=== PATIENT | male | born 1955 | race Caucasian/White ===

== ENCOUNTER → 2018-06-11 18:58 | Outpatient (REF) | payer OTHER, SELFPAY ==
[2018-06-11 19:33] LABS: Add Manual Diff / Slide Review NO; Basophils Absolute Auto 0 /uL (0-100); Basophils Percent Auto 0.3 % (0-2); Eosinophils Absolute Auto 0 /uL (0-450); Eosinophils Percent Auto 0.4 % (2-4); Hematocrit 42.1 % (41-53); Hemoglobin 13.9 g/dL (13.5-17.5); Lymphocytes Absolute Auto 1000 /uL (1100-4500); Lymphocytes Percent Auto 8.5 % (25-40); Mean Corpuscular HGB Conc 33.1 % (30-36); Mean Corpuscular Hemoglobin 31.5 PG (26-34); Mean Corpuscular Volume 95.2 fL (80-100); Monocytes Absolute Auto 600 /uL (0-900); Monocytes Percent Auto 4.9 % (3-14); Neutrophils Absolute Auto 9900 /uL (1500-7000); Neutrophils Percent Auto 85.9 % (50-75); Platelet Count 264 X10^3/uL (150-400); Red Blood Cell Count 4.42 X10^6/uL (4.5-5.9); White Blood Cell Count 11.5 X10^3/uL (4.5-11.0)
== END ==
LOC: LAB 18:58
PROVIDERS: Family Provider Family Medicine; PCP Family Medicine; Visit Provider Physician Assistant
DX: L03.90 Cellulitis, unspecified (principal)
CPT/HCPCS: 85025

== ENCOUNTER → 2018-06-11 | Outpatient (CLI) | payer OTHER, SELFPAY | PROVIDERS: Family Provider Family Medicine; PCP Family Medicine; Visit Provider Physician Assistant ==

== ENCOUNTER 2018-06-17 19:26 | Inpatient (IN) | payer OTHER, SELFPAY ==
[2018-06-17 19:33] VITALS: BP 126/76; PULSE 92; RESP 20; TEMP 36.6; O2SAT 99; BMI 29.0
--- NOTE | 2018-06-17 20:10 | ED.EXTPRO ---
HPI - Extremity Problem <MAXIMUS Schwartz - Last Filed: 06/18/18 12:27> General Chief complaint: Extremity Problem,Nontraumatic Stated complaint: right leg tenderness and swelling Time Seen by Provider: 06/17/18 20:04 Source: patient Mode of arrival: ambulatory Limitations: no limitations History of Present Illness HPI Narrative: 63-year-old male with a history of hypertension is a former smoker here for complaint of continued redness to his right lower leg. He was seen in the walk-in clinic 6 days ago and was placed on Keflex to treat for cellulitis. He reports that the redness has not improved and has actually increased in size since that timeframe. He denies any trauma to the right lower extremity. Tenderness to mostly the anterior portion of the right lower leg. No fevers no chills. He denies any drainage from the area. He denies any prior history of cellulitis or mrsa. He is ambulatory into the emergency room. He does state that he has been taking the antibiotics as prescribed. No nausea or vomiting. He is tolerating p.o. intake well as MD Complaint: extremity pain Related Data Home Medications Medication Instructions Recorded Confirmed aspirin 81 mg tablet,delayed 81 mg PO DAILY 06/11/18 06/17/18 release losartan 50 mg tablet 50 mg PO DAILY 06/11/18 06/17/18 Previous Rx's Medication Instructions Recorded cephalexin 500 mg capsule 500 mg PO QID 10 Days #40 cap 06/11/18 Allergies Allergy/AdvReac Type Severity Reaction Status Date / Time No Known Drug Allergies Allergy Verified 06/11/18 18:21 Review of Systems <MAXIMUS Schwartz - Last Filed: 06/18/18 12:27> Constitutional Denies chills, Denies fever(s), Denies lethargy and Denies weakness Eyes Denies change in vision, Denies eye discharge, Denies irritation and Denies loss of vision ENT Ears, Nose, Mouth, and Throat: Denies change in voice, Denies neck pain and Denies sore throat Cardiovascular Denies chest pain, Denies irregular heart rhythm, Denies lightheadedness, Denies palpitations, Denies dyspnea, Denies dyspnea on exertion and Denies orthopnea Respiratory Denies cough, Denies dyspnea, Denies dyspnea on exertion and Denies wheezing Gastrointestinal Gastrointestinal: Denies abdominal pain, Denies change in bowel habits, Denies diarrhea, Denies nausea and Denies vomiting Genitourinary Denies hematuria, Denies flank pain, Denies urinary incontinence and Denies urinary urgency Musculoskeletal Denies neck pain Comments: pain and redness to right lower extremity Integumentary/Breasts Denies pruritus, Denies erythema, Denies rash and Denies wounds Neurologic Denies confusion, Denies loss of vision and Denies weakness Psychiatric Denies anxiety, Denies confusion, Denies depression, Denies homicidal ideation and Denies suicidal ideation Endocrine Denies palpitations Hematologic/Lymphatic Denies easy bruising Allergic/Immunologic Denies wheezing PFSH <MAXIMUS Schwartz - Last Filed: 06/18/18 12:27> Medical History Bilateral primary osteoarthritis of knee (Acute) Hypertension (Acute) Social History household members: spouse Smoking Status: Former smoker alcohol intake: current Social History household members: spouse Smoking Status: Former smoker alcohol intake: current Exam <MAXIMUS Schwartz - Last Filed: 06/18/18 12:27> Initial Vital Signs Initial Vital Signs: Vital Signs Temperature 97.9 F 06/17/18 19:33 Pulse Rate 92 H 06/17/18 19:33 Respiratory Rate 20 06/17/18 19:33 Blood Pressure 126/76 06/17/18 19:33 Pulse Oximetry 99 06/17/18 19:33 Const General: cooperative and well developed Nutritional Appearance: well nourished Orientation: alert, awake, oriented x3 and not confused [facility] Mouth: oral mucosae normal and moist mucous membranes Eyes Conjunctivae: conjunctivae normal Sclera: sclerae normal Pupils: PERRL EOM: EOM intact bilaterally Resp Effort & Inspection: normal respiratory effort, able to speak in complete sentences, no respiratory distress and no use of accessory muscles Auscultation: clear to auscultation bilaterally, no rales, no rhonchi and no wheezes Cardio Rate: regular rate Rhythm: regular rhythm Heart Sounds: no click, no gallops, no murmurs and no rubs Pulses: normal peripheral pulses Skin General: no rashes or lesions noted, No jaundice and No petechiae Neuro General: alert, oriented x3, gait normal and no focal motor deficits Speech: speech normal Extrem Other: erythema to right tib-fib area mostly anterior and size. Tenderness on palpation. No induration or fluctuance. No pain into his calf region. Homans sign is negative. Distal sensation is intact. Distal range of motion is intact. Distal pulses are intact. <Anthony Ritter DO - Last Filed: 06/19/18 21:03> Initial Vital Signs Initial Vital Signs: Vital Signs Temperature 97.9 F 06/17/18 19:33 Pulse Rate 92 H 06/17/18 19:33 Respiratory Rate 20 06/17/18 19:33 Blood Pressure 126/76 06/17/18 19:33 Pulse Oximetry 99 06/17/18 19:33 Course <MAXIMUS Schwartz - Last Filed: 06/18/18 12:27> Orders Ordered: Discontinued Medications Acetaminophen (Tylenol) 650 mg PO Q6HR PRN PRN Reason: As Needed for Fever/Mild Pain Aspirin (Aspirin Ec) 81 mg PO DAILY [facility] Last Admin: 06/19/18 09:12 Dose: 81 mg Admin: 06/18/18 08:39 Dose: 81 mg Heparin Sodium (Porcine) (Heparin) 5,000 unit SUBCUT BID [facility] Last Admin: 06/19/18 09:12 Dose: 5,000 unit Admin: 06/18/18 20:59 Dose: 5,000 unit Admin: 06/18/18 08:40 Dose: 5,000 unit Vancomycin HCl 1,250 mg/ (Sodium Chloride) 250 mls @ 250 mls/hr IV NOW ONE Stop: 06/17/18 20:29 Last Infusion: 06/17/18 22:00 Dose: 0 mls/hr Admin: 06/17/18 20:45 Dose: 250 mls/hr Cefazolin Sodium/Dextrose (Ancef) 1 gm in 50 mls @ 100 mls/hr IV Q8H [facility] Stop: 06/20/18 02:29 Last Infusion: 06/19/18 10:11 Dose: 0 mls/hr Admin: 06/19/18 09:08 Dose: 100 mls/hr Infusion: 06/19/18 02:57 Dose: 0 mls/hr Admin: 06/19/18 01:47 Dose: 100 mls/hr Infusion: 06/18/18 20:58 Dose: 0 mls/hr Admin: 06/18/18 17:40 Dose: 100 mls/hr Infusion: 06/18/18 10:42 Dose: 100 mls/hr Admin: 06/18/18 10:12 Dose: 100 mls/hr Sodium Chloride (Normal Saline 0.9%) 250 mls @ 21 mls/hr IV Q24H PRN PRN Reason: Flush Losartan Potassium (Cozaar) 50 mg PO DAILY [facility] Last Admin: 06/19/18 09:11 Dose: 50 mg Admin: 06/18/18 08:39 Dose: 50 mg Sodium Chloride (Normal Saline 0.9% Flush) 10 ml IV BID [facility] Last Admin: 06/19/18 09:08 Dose: 10 ml Admin: 06/18/18 21:00 Dose: 10 ml Sodium Chloride (Normal Saline 0.9% Flush) 10 ml IV PRN PRN PRN Reason: Flush Vital Signs - 8 hr 06/19/18 13:04 06/19/18 16:06 Temperature 97.9 F Pulse Rate 66 Respiratory Rate 17 Blood Pressure 108/67 Pulse Oximetry 97 98 <Anthony Ritter DO - Last Filed: 06/19/18 21:03> Orders Ordered: Discontinued Medications Acetaminophen (Tylenol) 650 mg PO Q6HR PRN PRN Reason: As Needed for Fever/Mild Pain Aspirin (Aspirin Ec) 81 mg PO DAILY [facility] Last Admin: 06/19/18 09:12 Dose: 81 mg Admin: 06/18/18 08:39 Dose: 81 mg Heparin Sodium (Porcine) (Heparin) 5,000 unit SUBCUT BID [facility] Last Admin: 06/19/18 09:12 Dose: 5,000 unit Admin: 06/18/18 20:59 Dose: 5,000 unit Admin: 06/18/18 08:40 Dose: 5,000 unit Vancomycin HCl 1,250 mg/ (Sodium Chloride) 250 mls @ 250 mls/hr IV NOW ONE Stop: 06/17/18 20:29 Last Infusion: 06/17/18 22:00 Dose: 0 mls/hr Admin: 06/17/18 20:45 Dose: 250 mls/hr Cefazolin Sodium/Dextrose (Ancef) 1 gm in 50 mls @ 100 mls/hr IV Q8H [facility] Stop: 06/20/18 02:29 Last Infusion: 06/19/18 10:11 Dose: 0 mls/hr Admin: 06/19/18 09:08 Dose: 100 mls/hr Infusion: 06/19/18 02:57 Dose: 0 mls/hr Admin: 06/19/18 01:47 Dose: 100 mls/hr Infusion: 06/18/18 20:58 Dose: 0 mls/hr Admin: 06/18/18 17:40 Dose: 100 mls/hr Infusion: 06/18/18 10:42 Dose: 100 mls/hr Admin: 06/18/18 10:12 Dose: 100 mls/hr Sodium Chloride (Normal Saline 0.9%) 250 mls @ 21 mls/hr IV Q24H PRN PRN Reason: Flush Losartan Potassium (Cozaar) 50 mg PO DAILY [facility] Last Admin: 06/19/18 09:11 Dose: 50 mg Admin: 06/18/18 08:39 Dose: 50 mg Sodium Chloride (Normal Saline 0.9% Flush) 10 ml IV BID [facility] Last Admin: 06/19/18 09:08 Dose: 10 ml Admin: 06/18/18 21:00 Dose: 10 ml Sodium Chloride (Normal Saline 0.9% Flush) 10 ml IV PRN PRN PRN Reason: Flush Vital Signs - 8 hr 06/19/18 13:04 06/19/18 16:06 Temperature 97.9 F Pulse Rate 66 Respiratory Rate 17 Blood Pressure 108/67 Pulse Oximetry 97 98 MDM - Extremity (Nontraumatic) <MAXIMUS Schwartz - Last Filed: 06/18/18 12:27> Lab Data Result diagrams: 06/19/18 06:04 06/19/18 06:04 Lab Results 06/17/18 06/17/18 06/17/18 Range/Units 19:54 19:54 19:54 WBC 9.6 (4.5-11.0) X10^3/uL RBC 4.08 L (4.5-5.9) X10^6/uL Hgb 12.9 L (13.5-17.5) g/dL Hct 38.2 L (41-53) % MCV 93.7 (80-100) fL MCH 31.6 (26-34) PG MCHC 33.8 (30-36) % RDW 12.5 (11.6-14.8) % Plt Count 524 H (150-400) X10^3/uL Neut % (Auto) 67.7 (50-75) % Lymph % (Auto) 19.9 L (25-40) % [place] % (Auto) 8.0 (3-14) % Eos % (Auto) 3.1 (2-4) % Baso % (Auto) 1.3 (0-2) % Neut # (Auto) 6500 (9501-3238) /uL Lymph # (Auto) 1900 (6895-2052) /uL [place] # (Auto) 800 (0-900) /uL Eos # (Auto) 300 (0-450) /uL Baso # (Auto) 100 (0-100) /uL ESR (0-15) MM/HR Sodium 137 (137-145) mmol/L Potassium 3.5 (3.4-5.1) mmol/L Chloride 100 (98-107) mmol/L Carbon Dioxide 26 (22-32) mmol/L BUN 17 (9-20) mg/dL Creatinine 0.90 (0.66-1.25) mg/dL Estimated GFR > 60.0 (>60) mL/min BUN/Creatinine Ratio 18.9 (6-22) Glucose 118 H (80-110) mg/dL Lactate (0.7-2.1) mmol/L Calcium 9.3 (8.4-10.2) mg/dL Total Bilirubin 0.3 (0.2-1.3) mg/dL AST 47 (17-59) IU/L ALT 68 (21-72) IU/L Alkaline Phosphatase 96 (38-126) U/L C-Reactive Protein (<1.0) mg/dL Total Protein 8.1 (6.3-8.2) g/dL Albumin 4.3 (3.5-5.0) g/dL Globulin 3.8 (1.7-4.1) g/dL Albumin/Globulin Ratio 1.1 (1.0-2.8) Procalcitonin 0.19 (<0.5) ng/mL Nasal Screen MRSA (PCR) (Negative) 06/17/18 06/18/18 06/18/18 Range/Units 20:38 05:48 05:48 WBC 8.2 (4.5-11.0) X10^3/uL RBC 3.91 L (4.5-5.9) X10^6/uL Hgb 12.2 L (13.5-17.5) g/dL Hct 36.4 L (41-53) % MCV 93.2 (80-100) fL MCH 31.2 (26-34) PG MCHC 33.5 (30-36) % RDW 12.5 (11.6-14.8) % Plt Count 494 H (150-400) X10^3/uL Neut % (Auto) 70.2 (50-75) % Lymph % (Auto) 15.3 L (25-40) % [place] % (Auto) 10.4 (3-14) % Eos % (Auto) 3.1 (2-4) % Baso % (Auto) 1.0 (0-2) % Neut # (Auto) 5800 (1228-8290) /uL Lymph # (Auto) 1300 (4586-8235) /uL [place] # (Auto) 900 (0-900) /uL Eos # (Auto) 300 (0-450) /uL Baso # (Auto) 100 (0-100) /uL ESR 57 H (0-15) MM/HR Sodium 139 (137-145) mmol/L Potassium 4.1 (3.4-5.1) mmol/L Chloride 105 (98-107) mmol/L Carbon Dioxide 27 (22-32) mmol/L BUN 16 (9-20) mg/dL Creatinine 0.90 (0.66-1.25) mg/dL Estimated GFR > 60.0 (>60) mL/min BUN/Creatinine Ratio 17.8 (6-22) Glucose 100 (80-110) mg/dL Lactate 1.1 (0.7-2.1) mmol/L Calcium 8.6 (8.4-10.2) mg/dL Total Bilirubin (0.2-1.3) mg/dL AST (17-59) IU/L ALT (21-72) IU/L Alkaline Phosphatase (38-126) U/L C-Reactive Protein 2.8 H (<1.0) mg/dL Total Protein (6.3-8.2) g/dL Albumin (3.5-5.0) g/dL Globulin (1.7-4.1) g/dL Albumin/Globulin Ratio (1.0-2.8) Procalcitonin (<0.5) ng/mL Nasal Screen MRSA (PCR) (Negative) 06/18/18 06/19/18 06/19/18 Range/Units 14:13 06:04 06:04 WBC 7.8 (4.5-11.0) X10^3/uL RBC 3.98 L (4.5-5.9) X10^6/uL Hgb 12.5 L (13.5-17.5) g/dL Hct 37.2 L (41-53) % MCV 93.5 (80-100) fL MCH 31.4 (26-34) PG MCHC 33.6 (30-36) % RDW 12.9 (11.6-14.8) % Plt Count 546 H (150-400) X10^3/uL Neut % (Auto) 65.8 (50-75) % Lymph % (Auto) 20.6 L (25-40) % [place] % (Auto) 9.7 (3-14) % Eos % (Auto) 2.5 (2-4) % Baso % (Auto) 1.4 (0-2) % Neut # (Auto) 5100 (1257-1029) /uL Lymph # (Auto) 1600 (7027-2524) /uL [place] # (Auto) 800 (0-900) /uL Eos # (Auto) 200 (0-450) /uL Baso # (Auto) 100 (0-100) /uL ESR (0-15) MM/HR Sodium (137-145) mmol/L Potassium (3.4-5.1) mmol/L Chloride (98-107) mmol/L Carbon Dioxide (22-32) mmol/L BUN (9-20) mg/dL Creatinine (0.66-1.25) mg/dL Estimated GFR (>60) mL/min BUN/Creatinine Ratio (6-22) Glucose (80-110) mg/dL Lactate (0.7-2.1) mmol/L Calcium (8.4-10.2) mg/dL Total Bilirubin (0.2-1.3) mg/dL AST (17-59) IU/L ALT (21-72) IU/L Alkaline Phosphatase (38-126) U/L C-Reactive Protein (<1.0) mg/dL Total Protein (6.3-8.2) g/dL Albumin (3.5-5.0) g/dL Globulin (1.7-4.1) g/dL Albumin/Globulin Ratio (1.0-2.8) Procalcitonin 0.07 (<0.5) ng/mL Nasal Screen MRSA (PCR) Negative for mrsa (Negative) 06/19/18 Range/Units 06:04 WBC (4.5-11.0) X10^3/uL RBC (4.5-5.9) X10^6/uL Hgb (13.5-17.5) g/dL Hct (41-53) % MCV (80-100) fL MCH (26-34) PG MCHC (30-36) % RDW (11.6-14.8) % Plt Count (150-400) X10^3/uL Neut % (Auto) (50-75) % Lymph % (Auto) (25-40) % [place] % (Auto) (3-14) % Eos % (Auto) (2-4) % Baso % (Auto) (0-2) % Neut # (Auto) (9686-7258) /uL Lymph # (Auto) (3699-1239) /uL [place] # (Auto) (0-900) /uL Eos # (Auto) (0-450) /uL Baso # (Auto) (0-100) /uL ESR (0-15) MM/HR Sodium 139 (137-145) mmol/L Potassium 4.1 (3.4-5.1) mmol/L Chloride 104 (98-107) mmol/L Carbon Dioxide 26 (22-32) mmol/L BUN 14 (9-20) mg/dL Creatinine 0.90 (0.66-1.25) mg/dL Estimated GFR > 60.0 (>60) mL/min BUN/Creatinine Ratio 15.6 (6-22) Glucose 100 (80-110) mg/dL Lactate (0.7-2.1) mmol/L Calcium 9.1 (8.4-10.2) mg/dL Total Bilirubin (0.2-1.3) mg/dL AST (17-59) IU/L ALT (21-72) IU/L Alkaline Phosphatase (38-126) U/L C-Reactive Protein (<1.0) mg/dL Total Protein (6.3-8.2) g/dL Albumin (3.5-5.0) g/dL Globulin (1.7-4.1) g/dL Albumin/Globulin Ratio (1.0-2.8) Procalcitonin (<0.5) ng/mL Nasal Screen MRSA (PCR) (Negative) Imaging Data Venous US: Radiologist's impression: [address] [address] Ultrasound Report Signed Patient: Reji Aden AMR#: [id number] : 7Acct:[id number] Age/Sex: 63 / MDate of Service: 06/17/18 Loc: NV746-2 Accession Number: [id number] Procedure: US periph venous low extrem rt Ordering Provider: Brando Freitas PROCEDURE: US PERIPH VENOUS LOW EXTREM RT INDICATIONS: ERYTHEMA, EDEMA TECHNIQUE: Real-time imaging, as well as color and pulse Doppler interrogation, were performed of the lower extremity deep veins from the inguinal ligament to the popliteal fossa. COMPARISON: None. FINDINGS: The deep veins are normally compressible, and free of intraluminal thrombus. Color and pulse Doppler demonstrate normal phasic intraluminal flow. There is normal augmentation response to distal compression maneuver. There is a Ashley cyst measuring 4.4 x 1.4 x 4.3 cm in the popliteal fossa. IMPRESSION: 1. No deep venous thrombosis in the lower extremities. 2. A Ashley's cyst. 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 Dictated by: Kristina Perry M.D. on 06/18/2018 at 8:17 Approved by: Kristina Perry M.D. on 06/18/2018 at 8:19 MDM Narrative Medical decision making narrative: CBC and Chem panel were obtained were unremarkable. Procalcitonin lactate were obtained were unremarkable. Ultrasound of the right lower extremity was obtained was negative for any blood clot. Signs and symptoms presents as cellulitis not responding well to p.o. antibiotics. he was started on vancomycin in the emergency room. He is admitted at inpatient del cid for continued IV antibiotics. discussed case with MAXIMUS Borrego the has accepted patient. <Anthony Ritter DO - Last Filed: 06/19/18 21:03> Lab Data Lab Results 06/17/18 06/17/18 06/17/18 Range/Units 19:54 19:54 19:54 WBC 9.6 (4.5-11.0) X10^3/uL RBC 4.08 L (4.5-5.9) X10^6/uL Hgb 12.9 L (13.5-17.5) g/dL Hct 38.2 L (41-53) % MCV 93.7 (80-100) fL MCH 31.6 (26-34) PG MCHC 33.8 (30-36) % RDW 12.5 (11.6-14.8) % Plt Count 524 H (150-400) X10^3/uL Neut % (Auto) 67.7 (50-75) % Lymph % (Auto) 19.9 L (25-40) % [place] % (Auto) 8.0 (3-14) % Eos % (Auto) 3.1 (2-4) % Baso % (Auto) 1.3 (0-2) % Neut # (Auto) 6500 (8426-8456) /uL Lymph # (Auto) 1900 (6051-3784) /uL [place] # (Auto) 800 (0-900) /uL Eos # (Auto) 300 (0-450) /uL Baso # (Auto) 100 (0-100) /uL ESR (0-15) MM/HR Sodium 137 (137-145) mmol/L Potassium 3.5 (3.4-5.1) mmol/L Chloride 100 (98-107) mmol/L Carbon Dioxide 26 (22-32) mmol/L BUN 17 (9-20) mg/dL Creatinine 0.90 (0.66-1.25) mg/dL Estimated GFR > 60.0 (>60) mL/min BUN/Creatinine Ratio 18.9 (6-22) Glucose 118 H (80-110) mg/dL Lactate (0.7-2.1) mmol/L Calcium 9.3 (8.4-10.2) mg/dL Total Bilirubin 0.3 (0.2-1.3) mg/dL AST 47 (17-59) IU/L ALT 68 (21-72) IU/L Alkaline Phosphatase 96 (38-126) U/L C-Reactive Protein (<1.0) mg/dL Total Protein 8.1 (6.3-8.2) g/dL Albumin 4.3 (3.5-5.0) g/dL Globulin 3.8 (1.7-4.1) g/dL Albumin/Globulin Ratio 1.1 (1.0-2.8) Procalcitonin 0.19 (<0.5) ng/mL Nasal Screen MRSA (PCR) (Negative) 06/17/18 06/18/18 06/18/18 Range/Units 20:38 05:48 05:48 WBC 8.2 (4.5-11.0) X10^3/uL RBC 3.91 L (4.5-5.9) X10^6/uL Hgb 12.2 L (13.5-17.5) g/dL Hct 36.4 L (41-53) % MCV 93.2 (80-100) fL MCH 31.2 (26-34) PG MCHC 33.5 (30-36) % RDW 12.5 (11.6-14.8) % Plt Count 494 H (150-400) X10^3/uL Neut % (Auto) 70.2 (50-75) % Lymph % (Auto) 15.3 L (25-40) % [place] % (Auto) 10.4 (3-14) % Eos % (Auto) 3.1 (2-4) % Baso % (Auto) 1.0 (0-2) % Neut # (Auto) 5800 (6233-9305) /uL Lymph # (Auto) 1300 (1830-9874) /uL [place] # (Auto) 900 (0-900) /uL Eos # (Auto) 300 (0-450) /uL Baso # (Auto) 100 (0-100) /uL ESR 57 H (0-15) MM/HR Sodium 139 (137-145) mmol/L Potassium 4.1 (3.4-5.1) mmol/L Chloride 105 (98-107) mmol/L Carbon Dioxide 27 (22-32) mmol/L BUN 16 (9-20) mg/dL Creatinine 0.90 (0.66-1.25) mg/dL Estimated GFR > 60.0 (>60) mL/min BUN/Creatinine Ratio 17.8 (6-22) Glucose 100 (80-110) mg/dL Lactate 1.1 (0.7-2.1) mmol/L Calcium 8.6 (8.4-10.2) mg/dL Total Bilirubin (0.2-1.3) mg/dL AST (17-59) IU/L ALT (21-72) IU/L Alkaline Phosphatase (38-126) U/L C-Reactive Protein 2.8 H (<1.0) mg/dL Total Protein (6.3-8.2) g/dL Albumin (3.5-5.0) g/dL Globulin (1.7-4.1) g/dL Albumin/Globulin Ratio (1.0-2.8) Procalcitonin (<0.5) ng/mL Nasal Screen MRSA (PCR) (Negative) 06/18/18 06/19/18 06/19/18 Range/Units 14:13 06:04 06:04 WBC 7.8 (4.5-11.0) X10^3/uL RBC 3.98 L (4.5-5.9) X10^6/uL Hgb 12.5 L (13.5-17.5) g/dL Hct 37.2 L (41-53) % MCV 93.5 (80-100) fL MCH 31.4 (26-34) PG MCHC 33.6 (30-36) % RDW 12.9 (11.6-14.8) % Plt Count 546 H (150-400) X10^3/uL Neut % (Auto) 65.8 (50-75) % Lymph % (Auto) 20.6 L (25-40) % [place] % (Auto) 9.7 (3-14) % Eos % (Auto) 2.5 (2-4) % Baso % (Auto) 1.4 (0-2) % Neut # (Auto) 5100 (6572-0362) /uL Lymph # (Auto) 1600 (6085-4576) /uL [place] # (Auto) 800 (0-900) /uL Eos # (Auto) 200 (0-450) /uL Baso # (Auto) 100 (0-100) /uL ESR (0-15) MM/HR Sodium (137-145) mmol/L Potassium (3.4-5.1) mmol/L Chloride (98-107) mmol/L Carbon Dioxide (22-32) mmol/L BUN (9-20) mg/dL Creatinine (0.66-1.25) mg/dL Estimated GFR (>60) mL/min BUN/Creatinine Ratio (6-22) Glucose (80-110) mg/dL Lactate (0.7-2.1) mmol/L Calcium (8.4-10.2) mg/dL Total Bilirubin (0.2-1.3) mg/dL AST (17-59) IU/L ALT (21-72) IU/L Alkaline Phosphatase (38-126) U/L C-Reactive Protein (<1.0) mg/dL Total Protein (6.3-8.2) g/dL Albumin (3.5-5.0) g/dL Globulin (1.7-4.1) g/dL Albumin/Globulin Ratio (1.0-2.8) Procalcitonin 0.07 (<0.5) ng/mL Nasal Screen MRSA (PCR) Negative for mrsa (Negative) 06/19/18 Range/Units 06:04 WBC (4.5-11.0) X10^3/uL RBC (4.5-5.9) X10^6/uL Hgb (13.5-17.5) g/dL Hct (41-53) % MCV (80-100) fL MCH (26-34) PG MCHC (30-36) % RDW (11.6-14.8) % Plt Count (150-400) X10^3/uL Neut % (Auto) (50-75) % Lymph % (Auto) (25-40) % [place] % (Auto) (3-14) % Eos % (Auto) (2-4) % Baso % (Auto) (0-2) % Neut # (Auto) (2836-9648) /uL Lymph # (Auto) (2444-5005) /uL [place] # (Auto) (0-900) /uL Eos # (Auto) (0-450) /uL Baso # (Auto) (0-100) /uL ESR (0-15) MM/HR Sodium 139 (137-145) mmol/L Potassium 4.1 (3.4-5.1) mmol/L Chloride 104 (98-107) mmol/L Carbon Dioxide 26 (22-32) mmol/L BUN 14 (9-20) mg/dL Creatinine 0.90 (0.66-1.25) mg/dL Estimated GFR > 60.0 (>60) mL/min BUN/Creatinine Ratio 15.6 (6-22) Glucose 100 (80-110) mg/dL Lactate (0.7-2.1) mmol/L Calcium 9.1 (8.4-10.2) mg/dL Total Bilirubin (0.2-1.3) mg/dL AST (17-59) IU/L ALT (21-72) IU/L Alkaline Phosphatase (38-126) U/L C-Reactive Protein (<1.0) mg/dL Total Protein (6.3-8.2) g/dL Albumin (3.5-5.0) g/dL Globulin (1.7-4.1) g/dL Albumin/Globulin Ratio (1.0-2.8) Procalcitonin (<0.5) ng/mL Nasal Screen MRSA (PCR) (Negative) Discharge Plan Departure Patient Disposition: Admitted As Inpatient Clinical Impression: Cellulitis Qualifiers: Site of cellulitis: extremity Site of cellulitis of extremity: lower extremity Laterality: right Qualified Code(s): L03.115 - Cellulitis of right lower limb Discharge Date/Time: 06/17/18 22:24 Interventions: ED Discharge Assessment Last Done: 06/17/18 22:24 Admit Date/Time: 06/17/18 22:19 Admit Provider: Hilario Benoit <Anthony Ritter DO - Last Filed: 06/19/18 21:03> Cosign ED Attending Arnoldo Attestation: I was immediately available in the department for consultation. Documentation has been reviewed. I agree with assessment and plan.
--- NOTE | 2018-06-17 20:19 | DI.US.S_ITS ---
PROCEDURE: US PERIPH VENOUS LOW EXTREM RT INDICATIONS: ERYTHEMA, EDEMA TECHNIQUE: Real-time imaging, as well as color and pulse Doppler interrogation, were performed of the lower extremity deep veins from the inguinal ligament to the popliteal fossa. COMPARISON: None. FINDINGS: The deep veins are normally compressible, and free of intraluminal thrombus. Color and pulse Doppler demonstrate normal phasic intraluminal flow. There is normal augmentation response to distal compression maneuver. There is a Ashley cyst measuring 4.4 x 1.4 x 4.3 cm in the popliteal fossa. IMPRESSION: 1. No deep venous thrombosis in the lower extremities. 2. A Ashley's cyst. No significant discrepancy with the cage shift manager radiology preliminary report. Dictated by: Kristina Perry M.D. on 06/18/2018 at 8:17 Approved by: Kristina Perry M.D. on 06/18/2018 at 8:19
[2018-06-17 20:34] LABS: Add Manual Diff / Slide Review NO; Basophils Absolute Auto 100 /uL (0-100); Basophils Percent Auto 1.3 % (0-2); Eosinophils Absolute Auto 300 /uL (0-450); Eosinophils Percent Auto 3.1 % (2-4); Hematocrit 38.2 % (41-53); Hemoglobin 12.9 g/dL (13.5-17.5); Lymphocytes Absolute Auto 1900 /uL (1100-4500); Lymphocytes Percent Auto 19.9 % (25-40); Mean Corpuscular HGB Conc 33.8 % (30-36); Mean Corpuscular Hemoglobin 31.6 PG (26-34); Mean Corpuscular Volume 93.7 fL (80-100); Monocytes Absolute Auto 800 /uL (0-900); Neutrophils Absolute Auto 6500 /uL (1500-7000); Neutrophils Percent Auto 67.7 % (50-75); Platelet Count 524 X10^3/uL (150-400); Red Blood Cell Count 4.08 X10^6/uL (4.5-5.9); Red Cell Distribution Width 12.5 % (11.6-14.8); White Blood Cell Count 9.6 X10^3/uL (4.5-11.0)
[2018-06-17] MEDS: VANCOMYCIN 1,250 MG in SODIUM CHLORIDE 0.9% 250 ML IV (20:45)
[2018-06-17 20:47] LABS: Alanine Aminotransferase 68 IU/L (21-72); Albumin 4.3 g/dL (3.5-5.0); Albumin Globulin Ratio 1.1 (1.0-2.8); Alkaline Phosphatase 96 U/L (38-126); Aspartate Aminotransferase 47 IU/L (17-59); BUN Creatinine Ratio 18.9 (6-22); Bilirubin Total 0.3 mg/dL (0.2-1.3); Blood Urea Nitrogen 17 mg/dL (9-20); Calcium 9.3 mg/dL (8.4-10.2); Carbon Dioxide 26 mmol/L (22-32); Chloride 100 mmol/L (98-107); Estimated Glomerular Filt Rate > 60.0 mL/min (>60); Globulin 3.8 g/dL (1.7-4.1); Glucose 118 mg/dL (80-110); HEMOLYSIS < 15 (0-50); Potassium 3.5 mmol/L (3.4-5.1); Sodium 137 mmol/L (137-145); Total Protein 8.1 g/dL (6.3-8.2)
[2018-06-17 21:02] LABS: Procalcitonin 0.19 ng/mL (<0.5)
[2018-06-17 21:04] LABS: Lactate (Lactic Acid) 1.1 mmol/L (0.7-2.1)
[2018-06-17 22:04] VITALS: BP 116/69; PULSE 70; RESP 18; O2SAT 99
[2018-06-17 22:32] VITALS: BMI 29.7
[2018-06-17 23:03] VITALS: BP 141/82; PULSE 76; RESP 18; TEMP 36.6; O2SAT 98
--- NOTE | 2018-06-17 23:10 | PC.NURSE ---
Pt admitted to acute care from er, transferred via wheelchair, ambulated to bed. A/O. Reports 2-3/10 aching pain in right calf. Reports pain as tolerable and denies need for meds. Elevated right leg/foot. Redness within marked borders on calf, right ankle also slightly red, 2+ pitting edema. Pedal pulse marked, unable to palpate, doppler used. Left foot cool/dusky, cap refill <3 seconds. Reports sometimes hands also get dusky and a couple fingers turn white. Runs warm water over them to resolve the issue. Oriented to room/call light. Denies further questions. Spouse went home for the night.
[2018-06-18] VITALS (8 sets, daily range): BP systolic 114–136; BP diastolic 61–97; PULSE 70–77; RESP 16–20; TEMP 36.2–36.8; O2SAT 97–99
--- NOTE | 2018-06-18 02:02 | PC.NURSE ---
Drug Department Worker Note: 0030: Awake, resting in bed. Vital signs stable. IV in place in lt AC. No complaint of pain or discomfort.
--- NOTE | 2018-06-18 02:20 | P.HP_ITS ---
History of Present Illness Date Patient Seen: 06/18/18 Time Patient Seen: 05:50 Chief complaint: right leg tenderness and swelling Narrative: The patient is a 63-year-old male with PMH of hypertension, onychomycosis, steoarthritis (knees) history of shingles, and PRIOR tobacco dep endence. Patient reports developing a fever 102.7 with upper respiratory symptoms of cough with phlegm production. Associated symptoms of generalized malaise. Denies myopathy, joint, or bone pain. Symptoms improved with supportive care and ibuprofen. On Friday evening and noted right lower extremity swelling and discomfort in the calf area with worsening edema and erythema. On pat ieandreina noticed blotchy, blister-like lesions w/ mild purulence, which has now resolved. He was seen in the outpatient walk-in clinic, diagnosed with cellulitis, and started on a ten-day course of Keflex 500 mg q.i.d. patient has completed 6 days of antimicrobial therapy, there has not been any improvement in edema or erythema. Denies itching. No induration. No prior history of cellulitis. No prior history of MRSA /MRSA colonization. No history of diabetes, peripheral vascular disease, or autoimmune illness / immunocompromised state. WBC 9.6, HGB 12.9, PLT 524, PCT 0.19, lactate 1.1 No electrolyte or renal abnormalities. Right lower extremity vascular ultrasound was done on 06/17 in the outpatient clinic and patient was told there was no DVT, final results are pending, will need to follow up. Blood cultures were drawn in the ED and pending. Three weeks ago patient was doing some house work and had to go into some type of crawl space. Also has been working on remodeling in all house. No known bites. Possibly has had a small injury to the right calf area; however, his entirely sure. Patient fever. No hypotension or tachycardia. Erythema progressively worsening over course of 2 days. Not improving in the setting of oral antimicrobial therapy with Keflex. Non purulent. No prior history of MRSA or MSSA. No known history of recurrent infections. Risk factors obesity. Fissuring of interdigital toe spaces. Tinea pedis. Patient History Medical History Bilateral primary osteoarthritis of knee (Acute) Hypertension (Acute) Social History household members: spouse Smoking Status: Former smoker alcohol intake: current Family & Social History Social History: household members spouse Prior Living Arrangements House Safety & Behavioral: Feels Safe in Current Yes Environment Been Physically Hurt or No Threatened By a Person Suicidal Ideation Description None Tobacco & Substance use: Smoking Status Former smoker alcohol intake current alcohol intake frequency 0-2 drinks per day Substance Use Type does not use Meds Home Medications Medication Instructions Recorded Confirmed Type aspirin 81 mg tablet,delayed 81 mg PO DAILY 06/11/18 06/17/18 History release cephalexin 500 mg capsule 500 mg PO QID 10 Days #40 cap 06/11/18 06/17/18 Rx losartan 50 mg tablet 50 mg PO DAILY 06/11/18 06/17/18 History Allergies Allergy/AdvReac Type Severity Reaction Status Date / Time No Known Drug Allergies Allergy Verified 06/11/18 18:21 Review of Systems Review of Systems All systems reviewed & are unremarkable except as noted in HPI and below Exam Vital Signs (past 8 hours): - 06/17/18 19:33 06/17/18 22:04 06/17/18 23:03 Temperature 97.9 F 98 F Pulse Rate 92 H 70 76 Respiratory Rate 20 18 18 Blood Pressure 126/76 141/82 H Blood Pressure [Right Arm] 116/69 Pulse Oximetry 99 99 98 Oxygen Delivery Method Room Air Narrative Exam Narrative: Constitutional: NAD Neurologic: AOx3, no focal neurological deficits Head: NC, AT Eyes: PERRL, EOMI, Ears: external ears normal, no otorrhea Nose: external nose normal, no rhinorrhea or epistaxis Throat: MMM, oropharynx w/o exudate Neck: no masses, lymphadenopathy, or JVD Chest / Respiratory: CTAB, unlabored respiratory effort Heart / CV: S1S2, no murmur Abdomen / GI: round, NT, ND, + BS, no organomegaly : no suprapubic tenderness, no CVA Peripheral / Vascular: Right lower extremity with edema 3 to 4+; no induration; warm to touch; erythema, dermatitis appearance; sensation intact No purpura or ecchymotic rash. Pedal pulse palpable. Left lower extremity within normal limits. Tenia pedis of bilateral toenails Musc: full ROM of upper and lower extremities, adequate muscle tone and bulk Skin: See peripheral vascular assessment Objective Labs Result Diagrams: 06/18/18 05:48 06/18/18 05:48 Labs: Laboratory Results - last 24 hr 06/17/18 06/17/18 06/17/18 19:54 19:54 19:54 WBC 9.6 RBC 4.08 L Hgb 12.9 L Hct 38.2 L MCV 93.7 MCH 31.6 MCHC 33.8 RDW 12.5 Plt Count 524 H Neut % (Auto) 67.7 Lymph % (Auto) 19.9 L Clinton % (Auto) 8.0 Eos % (Auto) 3.1 Baso % (Auto) 1.3 Neut # (Auto) 6500 Lymph # (Auto) 1900 [place] # (Auto) 800 Eos # (Auto) 300 Baso # (Auto) 100 Sodium 137 Potassium 3.5 Chloride 100 Carbon Dioxide 26 BUN 17 Creatinine 0.90 Estimated GFR > 60.0 BUN/Creatinine Ratio 18.9 Glucose 118 H Lactate Calcium 9.3 Total Bilirubin 0.3 AST 47 ALT 68 Alkaline Phosphatase 96 Total Protein 8.1 Albumin 4.3 Globulin 3.8 Albumin/Globulin Ratio 1.1 Procalcitonin 0.19 06/17/18 20:38 WBC RBC Hgb Hct MCV MCH MCHC RDW Plt Count Neut % (Auto) Lymph % (Auto) [place] % (Auto) Eos % (Auto) Baso % (Auto) Neut # (Auto) Lymph # (Auto) [place] # (Auto) Eos # (Auto) Baso # (Auto) Sodium Potassium Chloride Carbon Dioxide BUN Creatinine Estimated GFR BUN/Creatinine Ratio Glucose Lactate 1.1 Calcium Total Bilirubin AST ALT Alkaline Phosphatase Total Protein Albumin Globulin Albumin/Globulin Ratio Procalcitonin Assessment & Plan Assessment & Plan narrative: Right lower extremity cellulitis without involvement of the foot, acute, present on admission Refractory to outpatient Keflex therapy Ddx: Fungal dermatitis, atopic dermatitis, eczema, viral infection Vital signs stable. Does not meet SIRS or sepsis criteria. Given a dose of vancomycin in the ED - blood cultures pending - a.m. labs CBC, BMP, sed rate, CRP - pain management with analgesics as needed - supportive care, elevate/rest affected extremity; wounds/?compress as tolerated or needed negative C 20 min every hour - Neurovascular checks q.4 hours; outline margins of the cellulitis with skin marker to monitor for inflammatory spread - wound care consult - given vancomycin in the ED, obtain MRSA swab, will change empiric therapy to Ancef. 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 is the DPOA. Home medications verified and reviewed. Plan of care discussed with patient's nurse. Quality VTE Deep Vein Thrombosis/Pulmonary Embolism Present on Admission: No
[2018-06-18 06:06] LABS: Add Manual Diff / Slide Review NO; Basophils Absolute Auto 100 /uL (0-100); Eosinophils Absolute Auto 300 /uL (0-450); Eosinophils Percent Auto 3.1 % (2-4); Hematocrit 36.4 % (41-53); Hemoglobin 12.2 g/dL (13.5-17.5); Lymphocytes Absolute Auto 1300 /uL (1100-4500); Lymphocytes Percent Auto 15.3 % (25-40); Mean Corpuscular HGB Conc 33.5 % (30-36); Mean Corpuscular Hemoglobin 31.2 PG (26-34); Mean Corpuscular Volume 93.2 fL (80-100); Monocytes Absolute Auto 900 /uL (0-900); Monocytes Percent Auto 10.4 % (3-14); Neutrophils Absolute Auto 5800 /uL (1500-7000); Neutrophils Percent Auto 70.2 % (50-75); Platelet Count 494 X10^3/uL (150-400); Red Blood Cell Count 3.91 X10^6/uL (4.5-5.9); Red Cell Distribution Width 12.5 % (11.6-14.8); White Blood Cell Count 8.2 X10^3/uL (4.5-11.0)
[2018-06-18 06:15] LABS: BUN Creatinine Ratio 17.8 (6-22); Blood Urea Nitrogen 16 mg/dL (9-20); Calcium 8.6 mg/dL (8.4-10.2); Carbon Dioxide 27 mmol/L (22-32); Chloride 105 mmol/L (98-107); Estimated Glomerular Filt Rate > 60.0 mL/min (>60); Glucose 100 mg/dL (80-110); HEMOLYSIS < 15 (0-50); Potassium 4.1 mmol/L (3.4-5.1); Sodium 139 mmol/L (137-145)
[2018-06-18 06:37] LABS: Erythrocyte Sedimentation Rate 57 MM/HR (0-15)
[2018-06-18 07:09] LABS: C-Reactive Protein Quant 2.8 mg/dL (<1.0)
[2018-06-18] MEDS: LOSARTAN 50 MG TABLET PO (08:39)
[2018-06-18] MEDS: ASPIRIN EC 81 MG TABLET PO (08:39)
[2018-06-18] MEDS: HEPARIN 5,000 UNIT/ML VIAL 5000 UNIT SUBCUT ×2 (08:40→20:59)
[2018-06-18] MEDS: CEFAZOLIN 1 GM/50 ML FROZ.PIGGY IV ×2 (10:12→17:40)
--- NOTE | 2018-06-18 18:13 | PC.NURSE ---
Pt awake and alert lying quietly in bed with RLE elevated on pillows x 2. Pt reports pain 2/10 and declines need for analgesia. Able to move all extremities independently. Admits to sensation to R foot not equal to left, but pedal pulses are palpable x 2 and warmth and color are equal BL. Denies nausea.
[2018-06-18] MEDS: SODIUM CHLORIDE 0.9% FLUSH 10 ML IV (21:00)
[2018-06-19] VITALS (9 sets, daily range): BP systolic 108–134; BP diastolic 67–86; PULSE 65–78; RESP 13–17; TEMP 36.3–36.6; O2SAT 97–99
[2018-06-19] MEDS: CEFAZOLIN 1 GM/50 ML FROZ.PIGGY IV ×2 (01:47→09:08)
[2018-06-19 06:23] LABS: Add Manual Diff / Slide Review NO; Basophils Absolute Auto 100 /uL (0-100); Basophils Percent Auto 1.4 % (0-2); Eosinophils Absolute Auto 200 /uL (0-450); Eosinophils Percent Auto 2.5 % (2-4); Hematocrit 37.2 % (41-53); Hemoglobin 12.5 g/dL (13.5-17.5); Lymphocytes Absolute Auto 1600 /uL (1100-4500); Lymphocytes Percent Auto 20.6 % (25-40); Mean Corpuscular HGB Conc 33.6 % (30-36); Mean Corpuscular Hemoglobin 31.4 PG (26-34); Mean Corpuscular Volume 93.5 fL (80-100); Monocytes Absolute Auto 800 /uL (0-900); Monocytes Percent Auto 9.7 % (3-14); Neutrophils Absolute Auto 5100 /uL (1500-7000); Neutrophils Percent Auto 65.8 % (50-75); Platelet Count 546 X10^3/uL (150-400); Red Blood Cell Count 3.98 X10^6/uL (4.5-5.9); Red Cell Distribution Width 12.9 % (11.6-14.8); White Blood Cell Count 7.8 X10^3/uL (4.5-11.0)
[2018-06-19 06:34] LABS: BUN Creatinine Ratio 15.6 (6-22); Blood Urea Nitrogen 14 mg/dL (9-20); Calcium 9.1 mg/dL (8.4-10.2); Carbon Dioxide 26 mmol/L (22-32); Chloride 104 mmol/L (98-107); Estimated Glomerular Filt Rate > 60.0 mL/min (>60); Glucose 100 mg/dL (80-110); HEMOLYSIS < 15 (0-50); Potassium 4.1 mmol/L (3.4-5.1); Sodium 139 mmol/L (137-145)
[2018-06-19 06:51] LABS: Procalcitonin 0.07 ng/mL (<0.5)
[2018-06-19] MEDS: SODIUM CHLORIDE 0.9% FLUSH 10 ML IV (09:08)
[2018-06-19] MEDS: LOSARTAN 50 MG TABLET PO (09:11)
[2018-06-19] MEDS: ASPIRIN EC 81 MG TABLET PO (09:12)
[2018-06-19] MEDS: HEPARIN 5,000 UNIT/ML VIAL 5000 UNIT SUBCUT (09:12)
--- NOTE | 2018-06-19 09:50 | CM.IDA ---
Discharge Planning/Care Management Advanced directive, confirm from FAMILY Start: 06/17/18 22:48 Freq: Q24H Status: Complete Protocol: Document 06/18/18 01:00 RAC (Rec: 06/18/18 01:58 RAC [id number]) Advance Directive, confirm on record Time 01:00 Person contacted pt Copy received No Copy received No Advanced directive available on record No Document 06/18/18 01:58 RAC (Rec: 06/18/18 01:58 RAC [id number]) Advance Directive, confirm on record Time 01:00 Person contacted pt Copy received No Copy received No Advanced directive available on record No CM Discharge Assessment Start: 06/19/18 09:39 Freq: Status: Active Protocol: Document 06/19/18 09:39 KATINA (Rec: 06/19/18 09:45 JW [id number]) Discharge Planning Assessment Assigned Electrical Tester BETHANY Mcallister DPOA/Assigned Designee Name Rama Aden, spouse Contact Information [phone] Advance Directives? No History Provided By Patient Medical Record Prior Living Arrangements House Household Members spouse Type of transporation used prior to Drives own vehicle admit Independent with ADL's Yes Is patient alert and oriented? Yes Barriers to Discharge No Comment Pt admitted for rt lower extremity cellulitis. Payer: [employer]. Reviewed chart. Pt indp at baseline, lives w/spouse. Dr Cross indicated in multi- disciplinary rounds this morning that pt will likely DC home today or tomorrow on po abx. No SW needs anticipated. Following in case any DC needs or concerns arise. BETHANY Wilkerson Discharge Plan Home Transportation Arrangement Family Referrals Initiated None needed Review Status In Process
--- NOTE | 2018-06-19 12:17 | PC.NURSE ---
Day Shift- Pt reports 2/10 aching to RLE after wound dressing change this AM by Dr. Paris. Wound culture swab from RLE taken by Dr. Paris, order placed and swab sent to lab. RLE has 2 allevyn foam border dressings present, marked with todays date. Redness receding from previous marked line. Skin is wrinkled, pt reports edema has diminished since yesterday. RLE elevated on several pillows, educated pt to try to keep above heart level as much as possible. OOB indep with steady gait, pt ambulated in halls indep as well. No other voiced concerns.
--- NOTE | 2018-06-19 16:45 | PC.NURSE ---
Wound Consult with Wound Nurse and is in bed with his right leg up on pillows. His right leg below his knee has erythema, which the boarder is marked with a black line. No erythema is beyond the line. His right leg looks visibly more edematous. Dr Paris removed three areas of dried drainage which are clustered and the cluster measures 5.0 x 1.5 x .1cm. A culture was taken of the clustered partial thickness wounds. After the wound were debrided they were cleaned with Normal Saline and again after the swab culture was taken. A border foam was placed over these wounds. Mr. Aden also had a smaller superficial partial thickness wound on his right lateral leg and this was also cleaned with Normal Saline and a border foam was placed. Mr. Aden states he has two more doses of IV antibiotics and hopes to be going home this evening after the last dose.
--- NOTE | 2018-06-19 16:54 | P.DS_ITS ---
History of Present Illness Date Patient Seen: 06/18/18 Chief complaint: right leg tenderness and swelling Narrative: Written by Hilario STROUD: The patient is a 63-year-old male with PMH of hypertension, onychomycosis, steoarthritis (knees) history of shingles, and PRIOR tobacco de pendence. Patient reports developing a fever 102.7 with upper respiratory symptoms of cough with phlegm production. Associated symptoms of generalized malaise. Denies myopathy, joint, or bone pain. Symptoms improved with supportive care and ibuprofen. On Friday evening and noted right lower extremity swelling and discomfort in the calf area with worsening edema and erythema. On juve morgan noticed blotchy, blister-like lesions w/ mild purulence, which has now resolved. He was seen in the outpatient walk-in clinic, diagnosed with cellulitis, and started on a ten-day course of Keflex 500 mg q.i.d. patient has completed 6 days of antimicrobial therapy, there has not been any improvement in edema or erythema. Denies itching. No induration. No prior history of cellulitis. No prior history of MRSA /MRSA colonization. No history of diabetes, peripheral vascular disease, or autoimmune illness / immunocompromised state. WBC 9.6, HGB 12.9, PLT 524, PCT 0.19, lactate 1.1 No electrolyte or renal abnormalities. Right lower extremity vascular ultrasound was done on 06/17 in the outpatient clinic and patient was told there was no DVT, final results are pending, will need to follow up. Blood cultures were drawn in the ED and pending. Three weeks ago patient was doing some house work and had to go into some type of crawl space. Also has been working on remodeling in all house. No known bites. Possibly has had a small injury to the right calf area; however, his entirely sure. Patient fever. No hypotension or tachycardia. Erythema progressively worsening over course of 2 days. Not improving in the setting of oral antimicrobial therapy with Keflex. Non purulent. No prior history of MRSA or MSSA. No known history of recurrent infections. Risk factors obesity. Fissuring of interdigital toe spaces. Tinea pedis. Discharge Providers Date of admission: 06/17/18 22:19 Primary care physician: Danyell Fagan MD Consults: 06/18/18 02:10 Consult to Discharge Planning Routine Comment: 06/18/18 06:00 Consult to Wound Care Routine Comment: Consulting Provider: [facility] 06/18/18 06:07 Consult to PICC Line RN Routine Comment: Discharge provider: Chayo Cross DO Discharge Date: 06/19/18 Summary Discharge Diagnosis: 1. Right lower extremity cellulitis, present on admission. Resolving. 2. Essential hypertension, chronic, present on admission. Stable. 3. Acute thrombocytosis, present on admission. Stable. Hospital Course: 1. Right lower extremity cellulitis, present on admission. Resolving. -Patient presented with right lower extremity cellulitis recently placed on Keflex outpatient. -Infectious markers negative including WBC and procalcitonin. Afebrile. -Blood cultures x2 have no growth to date. -ESR and CRP elevated. -Given pain management with analgesics as needed. -Continued supportive care, elevate/rest affected extremity often; compress as tolerated. -Continued Neurovascular checks every 4 hr; outlined margins of the cellulitis with skin marker to monitor for inflammatory spread which was retracting and improving. -Ordered wound care consult and discussed patient with Dr. Paris who agrees that he can be treated with Keflex outpatient and follow up as necessary. -Received vancomycin in the ED, obtained MRSA swab which was negative, switched to Ancef. Recommended finishing Keflex course outpatient. 2. Essential hypertension, chronic, present on admission. Stable. -Continued home losartan. 3. Acute thrombocytosis, present on admission. Stable. -Platelet count normal on 06/11/2018. Likely reactive due to cellulitis. Recommend repeat CBC in 1 week. Status at Discharge Functional status at discharge: independent ambulation Overall status at discharge: patient is progressing back to baseline Exam Vital Signs (past 8 hours): - 06/19/18 09:10 06/19/18 12:02 06/19/18 13:04 Temperature 97.7 F Pulse Rate 68 Respiratory Rate 14 Blood Pressure 127/86 Pulse Oximetry 98 99 97 06/19/18 16:06 Temperature 97.9 F Pulse Rate 66 Respiratory Rate 17 Blood Pressure 108/67 Pulse Oximetry 98 Oxygen Delivery Method Room Air Oxygen Flow Rate 0 Narrative Exam Narrative: General: Older gentleman sitting in bed and in no acute distress, well- developed, well-nourished, appropriately interactive. HEENT: Normocephalic, atraumatic. External ears without defect. Pupils equal, round, and reactive to light and accommodation. Anicteric sclerae, moist conjunctivae, and no lid lag. Oropharynx free of erythema and cobble stoning with moist mucosa. Neck: Supple with full range of motion. No jugular venous distension. No bruits. No lymphadenopathy or thyromegaly. Cardiovascular: Regular rate and rhythm without murmurs, rubs, or gallops appreciated. Pulmonary: Clear to auscultation bilaterally without crackles, wheezes, or rhonchi. Normal respiratory effort with no use of accessory muscles. Abdomen: Soft, bowel sounds present, nontender, nondistended. No hepatospl enomegaly or masses appreciated. Extremities: No clubbing, cyanosis, or edema. Circumferential right lower extremity cellulitis with small scattered bullae (several open) significantly improved and retracted from outline. Skin: Normal temperature, turgor, and texture; no ulcers, or subcutaneous nodu les appreciated. Neurological: Cranial nerves grossly intact. Normal muscle strength, tone, and bulk. Reflexes, coordination, and sensory function within normal limits. No known gait impairment. Psychiatric: Normal mood and affect. Anxious. Alert and oriented to person, place, and time. Objective Labs Result Diagrams: 06/19/18 06:04 06/19/18 06:04 Labs: Laboratory Results - last 24 hr 06/19/18 06/19/18 06/19/18 06:04 06:04 06:04 WBC 7.8 RBC 3.98 L Hgb 12.5 L Hct 37.2 L MCV 93.5 MCH 31.4 MCHC 33.6 RDW 12.9 Plt Count 546 H Neut % (Auto) 65.8 Lymph % (Auto) 20.6 L [place] % (Auto) 9.7 Eos % (Auto) 2.5 Baso % (Auto) 1.4 Neut # (Auto) 5100 Lymph # (Auto) 1600 [place] # (Auto) 800 Eos # (Auto) 200 Baso # (Auto) 100 Sodium 139 Potassium 4.1 Chloride 104 Carbon Dioxide 26 BUN 14 Creatinine 0.90 Estimated GFR > 60.0 BUN/Creatinine Ratio 15.6 Glucose 100 Calcium 9.1 Procalcitonin 0.07 Discharge Plan Discharge Plan Patient Disposition: Home Discharge comment: You are being discharged home. Please keep your right lower extremity clean and dry (pat dry do not rub). Do not use Neosporin or other or ointments. Please make an appointment with wound care, Dr. Paris, at his next available appointment to follow up for your right lower extremity cellulitis. Discharge Med Rec/Prescriptions Prescriptions: Continued losartan 50 mg tablet 50 mg PO DAILY RF: 0 aspirin [Adult Low Dose Aspirin] 81 mg tablet,delayed release (DR/EC) 81 mg PO DAILY RF: 0 cephalexin [Keflex] 500 mg capsule 500 mg PO QID 10 Days Qty: 40 RF: 0 Follow up/Referrals: Danyell Fagan MD [Primary Care Provider] - As previously scheduled Aravind Paris MD [Physician] - 1 Week Provider Discharge Instructions Diet: Low-sodium and Low-cholesterol Skin/Wound/Dressing Care Report to your healthcare provider any signs of infection, such as:: chills, fever, increased pain, unusual drainage and unusual redness Visit Report/Discharge Packet Instructions: DI for Cellulitis -- Adult Discharge Data Primary Care Provider: Danyell Fagan Attending Provider: Hilario Benoit Admit Date/Time: 06/17/18 22:19 Discharges patient from system. Discharge Date/Time: 06/19/18 17:47 Quality VTE Deep Vein Thrombosis/Pulmonary Embolism Present on Admission: No
--- NOTE | 2018-06-19 17:48 | PC.NURSE ---
1745: Discharge teaching done about cellulitis, pt understands teaching and follow up care with wound care clinic and primary doc. Was taught about medications and verbalized understanding. Pt. was alert and oriented and able to ambulate on his own and do all ADL's.
--- NOTE | 2018-06-20 08:06 | CM.DPC ---
DCP Discharge Home Per MD yesterday, pt was stable to d/c home in the evening with no identified barriers to discharge. Patient discharged home yesterday 06/19/18 after SW shift was over. BETHANY Yusuf
== END 2018-06-19 17:47 | disposition home or self-care (01) | DRG 603 ==
LOC: ED 21:46 → AC 22:20
PROVIDERS: Internal Medicine; Admitting Provider Nurse Practitioner Gerontology; Emergency Provider Nurse Practitioner Family; Family Provider Family Medicine; PCP Family Medicine; Visit Provider Nurse Practitioner Gerontology
DX: L03.115 Cellulitis of right lower limb (principal); D47.3 Essential (hemorrhagic) thrombocythemia; I10 Essential (primary) hypertension; Z87.891 Personal history of nicotine dependence
CPT/HCPCS: 36415; 36591; 80048; 80053; 83605; 84145; 85025; 85651; 86140; 87040; 87070; 87077; 87205; 87797; 93971; 96365; 99283; 99284; J1644

== ENCOUNTER → 2019-02-12 08:27 | Outpatient (CLI) | payer OTHER, SELFPAY ==
[2019-02-12 09:15] LABS: Add Manual Diff / Slide Review NO; Basophils Absolute Auto 100 /uL (0-100); Basophils Percent Auto 0.9 % (0-2); Eosinophils Absolute Auto 200 /uL (0-450); Eosinophils Percent Auto 4.2 % (2-4); Hematocrit 40.9 % (41-53); Hemoglobin 13.8 g/dL (13.5-17.5); Lymphocytes Absolute Auto 1400 /uL (1100-4500); Lymphocytes Percent Auto 25.2 % (25-40); Mean Corpuscular HGB Conc 33.8 % (30-36); Mean Corpuscular Volume 94.9 fL (80-100); Monocytes Absolute Auto 600 /uL (0-900); Monocytes Percent Auto 11.4 % (3-14); Neutrophils Absolute Auto 3200 /uL (1500-7000); Neutrophils Percent Auto 58.3 % (50-75); Platelet Count 320 X10^3/uL (150-400); Red Blood Cell Count 4.31 X10^6/uL (4.5-5.9); Red Cell Distribution Width 13.3 % (11.6-14.8); White Blood Cell Count 5.6 X10^3/uL (4.5-11.0)
[2019-02-12 09:38] LABS: Carbon Dioxide 28 mmol/L (22-32); Chloride 105 mmol/L (98-107); HEMOLYSIS < 15 (0-50); Potassium 4.3 mmol/L (3.4-5.1); Sodium 139 mmol/L (137-145)
== END ==
PROVIDERS: PCP Family Medicine; Visit Provider Orthopaedic Surgery
DX: Z01.818 Encounter for other preprocedural examination (principal); Z01.812 Encounter for preprocedural laboratory examination; M17.10 Unilateral primary osteoarthritis, unspecified knee
CPT/HCPCS: 36415; 80051; 85025; 93005

== ENCOUNTER 2019-05-10 16:45 | Outpatient (RCR) | payer OTHER, SELFPAY ==
--- NOTE | 2019-03-11 17:30 | PT.OIE ---
Current Diagnoses Unilateral primary osteoarthritis, unspecified knee (03/11/19) Past Medical History (Last Reviewed 06/18/18 @ 07:34 by MAXIMUS Panchal) Bilateral primary osteoarthritis of knee (Acute) Hypertension (Acute) Visit Care Team Role Provider Type Danyell Fagan MD Primary Care Provider Non-Staff Specialty: Medical Address: [address] [place] [address], [id number] Email: Duran Grossman MD Attending Provider Physician Specialty: Orthopedic Surgery Address: [address] [place] [address], [id number] Email: [email or web address] Initial Evaluation PT-OP-A Visit Information Start: 03/11/19 17:31 Freq: Status: Active Protocol: Document 03/11/19 16:45 DCW (Rec: 03/11/19 17:46 DCW [id number]) Out-Patient Physical Therapy Visit Information Visit Information Visit Type Initial Evaluation Visit Start Time 16:45 Visit Stop Time 17:20 Total Visit Minutes 35 Visit Number 1 Number of SENIOR WEALTH ADVISOR Visits 0 Evaluation Information Evaluation Date 03/11/19 PT-OP-B Current Condition Start: 03/11/19 17:31 Freq: Status: Active Protocol: Document 03/11/19 16:45 DCW (Rec: 03/11/19 17:46 DCW [id number]) Current Condition History of Current Condition Onset Date Multi-year history Current Complaints Upcoming L TKA 04/06/19 History of Current Condition Pt is a 64 year old [facility]. Pt has long-standing knee pain with limited ROM and failure of conservative treatment. Pt notes that he has been bone- on-bone for quite a while, and the pain is now limiting his activities. Pt enjoys snowboarding, surfing, water-skiing, and mountain biking, and would like to return to these activities following his TKA. 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 Pt notes that he has learned to compensate for his limited ROM. Future Testing and Treatments Planned L TKA 04/06/19 Prior Functional Status Baseline Function- ADL's Independent Baseline Function- Mobility Independent PT-OP-C Subjective Start: 03/11/19 17:31 Freq: Status: Active Protocol: Document 03/11/19 16:45 DCW (Rec: 03/11/19 17:46 DCW [id number]) OP-PT Subjective Patient Comments Patient Comments Noted worsening of ROM and activity tolerance Patient Reported Progress Worse Patient Questionnaires Lower Extremity Functional Scale LEFS Score 31/80 = 38.75 LEFS Impairment 40 to 59% Impaired (Score 32- 47) PT-OP-K Range of Motion Start: 03/11/19 17:31 Freq: Status: Active Protocol: Document 03/11/19 16:45 DCW (Rec: 03/11/19 17:46 DCW [id number]) Knee Goniometric Range of Motion Knee Left Patient Position Sitting Flexion Active (degrees) 92 Extension Active (degrees) 0 Knee ROM Limitations Knee ROM Limitations Bony Restriction,Pain PT-OP-M Strength Start: 03/11/19 17:31 Freq: Status: Active Protocol: Document 03/11/19 16:45 DCW (Rec: 03/11/19 17:46 DCW [id number]) Knee Strength Knee Manual Muscle Testing Right Flexion (S2) 5 Normal Extension (L3) 5 Normal Left Flexion (S2) 5 Normal Extension (L3) 5 Normal PT-OP-Q Treatments Start: 03/11/19 17:31 Freq: Status: Active Protocol: Document 03/11/19 16:45 DCW (Rec: 03/11/19 17:48 DCW [id number]) Self-Care/Home Management Treatment Education Patient Education Home Exercise Program,Safety Other Education Reviewed Post-op HEP, Sit<-> Stand safety, Bed Mobility, Gait training with FWW and cane, bed mobility, and stair safety PT-OP-T Assessment and Plan Start: 03/11/19 17:31 Freq: Status: Active Protocol: Document 03/11/19 16:45 DCW (Rec: 03/12/19 11:29 DCW [id number]) Physical Therapy Assessment Rehab Potential Rehabilitation Potential Excellent Evaluation Complexity Number of Personal Factors/Comorbidities 0 Number of Body Systems Impaired 1-2 Clinical Presentation at Evaluation Stable Goals One Impairment Pt does not have an appropriate home exercise program Short Term Goal (STG) Pt will be independent and compliant with an appropriate HEP STG Duration 04/16/19 Assessment Summary Assessment Pt presents today for a [facility] evaluation 4 weeks pre-op for a left TKA. Focus today was to gather relevant objective measures, such as baseline ROM and strength, and then educate patient on post- op expectations and gait techniques, transfers, stair safety, bed mobility, and an appropriate HEP. Pt will undergo his TKA on 04/06/19, and is current scheduled for a skilled physical therapy re- evaluation on 04/09/19 for post-op treatment. Physical Therapy Plan Frequency and Duration Frequency of Treatment none until post-op Duration of Treatment 1 month Plan of Care Start Date 03/12/19 Plan of Care End Date 04/11/19 Next Visit Focus/Plan Next Note Type Re-Evaluation Next Visit Plan Post-op re-evaluation
--- NOTE | 2019-03-11 17:30 | PT.OPPOC ---
Current Diagnoses Unilateral primary osteoarthritis, unspecified knee (03/11/19) Visit Care Team Role Provider Type Danyell Fagan MD Primary Care Provider Non-Staff Specialty: Medical Address: [address] [place] [address], [place], [address] Email: Duran Grossman MD Attending Provider Physician Specialty: Orthopedic Surgery Address: [address] [place] [address], [id number] Email: [email or web address] Plan Of Care PT-OP-T Assessment and Plan Start: 03/11/19 17:31 Freq: Status: Active Protocol: Document 03/11/19 16:45 DCW (Rec: 03/12/19 11:29 DCW [id number]) Physical Therapy Assessment Rehab Potential Rehabilitation Potential Excellent Evaluation Complexity Number of Personal Factors/Comorbidities 0 Number of Body Systems Impaired 1-2 Clinical Presentation at Evaluation Stable Goals One Impairment Pt does not have an appropriate home exercise program Short Term Goal (STG) Pt will be independent and compliant with an appropriate HEP STG Duration 04/16/19 Assessment Summary Assessment Pt presents today for a [facility] evaluation 4 weeks pre-op for a left TKA. Focus today was to gather relevant objective measures, such as baseline ROM and strength, and then educate patient on post- op expectations and gait techniques, transfers, stair safety, bed mobility, and an appropriate HEP. Pt will undergo his TKA on 04/06/19, and is current scheduled for a skilled physical therapy re- evaluation on 04/09/19 for post-op treatment. Physical Therapy Plan Frequency and Duration Frequency of Treatment none until post-op Duration of Treatment 1 month Plan of Care Start Date 03/12/19 Plan of Care End Date 04/11/19 Next Visit Focus/Plan Next Note Type Re-Evaluation Next Visit Plan Post-op re-evaluation Plan of Care Dates Plan of Care Start Date 03/12/19 Plan of Care End Date 04/11/19
--- NOTE | 2019-04-09 15:59 | PT.OIE ---
Current Diagnoses Unilateral primary osteoarthritis, unspecified knee (04/09/19) Past Medical History (Last Reviewed 06/18/18 @ 07:34 by MAXIMUS Panchal) Bilateral primary osteoarthritis of knee (Acute) Hypertension (Acute) Visit Care Team Role Provider Type Danyell Fagan MD Primary Care Provider Non-Staff Specialty: Medical Address: [address] [place] [address], [id number] Email: Duran Grossman MD Attending Provider Physician Specialty: Orthopedic Surgery Address: [address] [place] [address], [id number] Email: [email or web address] Physical Therapy Initial Evaluation PT-OP-A Visit Information Start: 03/11/19 17:31 Freq: Status: Active Protocol: Document 04/09/19 13:45 DCW (Rec: 04/09/19 15:46 DCW [id number]) Out-Patient Physical Therapy Visit Information Visit Information Visit Type Re-Evaluation Visit Start Time 13:45 Visit Stop Time 14:25 Total Visit Minutes 40 Visit Number 2 Number of TEACHING ASSISTANT Visits 0 Evaluation Information Evaluation Date 03/11/19 PT-OP-B Current Condition Start: 03/11/19 17:31 Freq: Status: Active Protocol: Document 04/09/19 13:45 DCW (Rec: 04/09/19 15:46 DC [id number]) Current Condition History of Current Condition Onset Date Multi-year history Current Complaints L TKA 04/06/19 History of Current Condition Pt is a 64 year old male presenting for a [facility] eval 4 weeks pre-op L TKA. Pt has long-standing knee pain with limited ROM and failure of conservative treatment. Pt notes that he has been bone- on-bone for quite a while, and the pain is now limiting his activities. Pt enjoys snowboarding, surfing, waterskiing, and mountain biking, and would like to return to these activities following his TKA. 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 Pt notes that he has learned to compensate for his limited ROM. ADDENDUM 04/09/19: Pt returned to skilled therapy 3 days s/p L TKA. PT reports that overall he is doing well, was able to leave the hospital day of surgery, and has been feeling confident performing his HEP and walking with the 4WW. Pt still reports his goals are to return to Mountain Biking and Snowboarding. PT-OP-C Subjective Start: 03/11/19 17:31 Freq: Status: Active Protocol: Document 04/09/19 13:45 DCW (Rec: 04/09/19 15:46 DCW [id number]) OP-PT Subjective Patient Comments Patient Comments I felt good after doing my home exercises yesterday, so I did them again. That may have been a mistake, I was pretty sore the rest of the night, and had a hard time sleeping. Pt does note that although he is sore, it already feels a lot better than the pain I had before surgery. Patient Reported Progress Improving Patient Questionnaires Lower Extremity Functional Scale LEFS Score = 16.25 LEFS Impairment 80 to 99% Impaired (Score 1-16 ) PT-OP-E Functional Tests Start: 03/11/19 17:31 Freq: Status: Active Protocol: Document 04/09/19 13:45 DCW (Rec: 04/09/19 15:46 DCW [id number]) Functional Tests 6 Minute Walk Test Distance 529 Device Used 4WW PT-OP-G Mobility & Gait Start: 03/11/19 17:31 Freq: Status: Active Protocol: Document 04/09/19 13:45 DCW (Rec: 04/09/19 15:46 DCW [id number]) OP Gait Assessment Gait Gait Assistance Required: Standby Assistance Distance (Feet) 550 Able to Maintain Weight Bearing Status Yes During Gait Assistive Devices Assistive Device 4 Wheeled Walker Gait Deviations General Gait Pattern Antalgic PT-OP-J Posture/Palpation/Skin Start: 04/09/19 15:46 Freq: Status: Active Protocol: Document 04/09/19 13:45 DCW (Rec: 04/09/19 15:59 DCW [id number]) Skin Assessment Circumference Measurement 3 Location 10 cm inferior to L patella Measurement (Centimeters) 39.9 Comments 10 inferior to R patella = 37. 8 2 Location 10 cm superior to L patella Measurement (Centimeters) 47.6 Comments 10 cm superior to R patella = 42.2 1 Location Left knee joint line Measurement (Centimeters) 44.0 Comments Right knee joint line = 40.2 cm PT-OP-K Range of Motion Start: 03/11/19 17:31 Freq: Status: Active Protocol: Document 04/09/19 13:45 DCW (Rec: 04/09/19 15:46 DCW [id number]) Knee Goniometric Range of Motion Knee Left Flexion Active (degrees) 85 Flexion Passive (degrees) 86 Extension Active (degrees) 11 Extension Passive (degrees) 11 Knee ROM Limitations Knee ROM Limitations Soft Tissue Tightness,Muscle Weakness,Pain,Swelling PT-OP-M Strength Start: 03/11/19 17:31 Freq: Status: Active Protocol: Document 04/09/19 13:45 DCW (Rec: 04/09/19 15:46 DCW [id number]) Knee Strength Knee Manual Muscle Testing Left Flexion (S2) 3- Fair- Extension (L3) 3- Fair- PT-OP-Q Treatments Start: 03/11/19 17:31 Freq: Status: Active Protocol: Document 04/09/19 13:45 DCW (Rec: 04/09/19 15:59 DCW [id number]) Cardio Equipment Recumbent Bicycle Duration (Minutes) 5 Resistance 0 Seat Position 5 Other unable to complete full rotation PT-OP-T Assessment and Plan Start: 03/11/19 17:31 Freq: Status: Active Protocol: Document 04/09/19 13:45 DCW (Rec: 04/09/19 15:59 DCW [id number]) Physical Therapy Assessment Rehab Potential Rehabilitation Potential Good Evaluation Complexity Number of Personal Factors/Comorbidities 1-2 Number of Body Systems Impaired 1-2 Clinical Presentation at Evaluation Stable Impairments Impairments Activity Tolerance,Functional Mobility,Gait,Integument,Pain, ROM,Soft Tissue Mobility, Strength,Transfers Goals Four Impairment Pt unable to participate in his hobby of Mountain Biking Reheat Furnace Operator Goal (LTG) Pt to tolerate road biking 1 mile as a step to return to Mountain Biking LTG Duration 06/10/18 Three Impairment Pt limited L knee ROM to 11-86 ? Reheat Furnace Operator Goal (LTG) Pt to demonstrate left knee ROM 0-120? LTG Duration 06/10/18 Two Impairment Pt limited to 550' in ambulation distance Prison Goal (LTG) Pt to ambulate 1000' without an assistive device during 6 MWT to demonstrate a gait speed appropriate for independent community ambulation LTG Duration 06/10/18 One Impairment Pt does not have an appropriate home exercise program Short Term Goal (STG) Pt will be independent and compliant with an appropriate HEP STG Duration 05/10/19 Assessment Summary Assessment Pt presents today doing very well three days post-op. Pt has an appropriate gait pattern while using his 4WW, with good heel strike and push off, shows good knee flexion, but has a slower, though expected, gait estelita. Pt shows joint effusion and loss of ROM, some LE weakness, and pain, all which is expected following TKA. Pt very motivated, and is already doing well with his post-op HEP. Pt will likely progress through therapy quickly, and will hopefully be able to return to his hobbies of snowboarding and mountain biking. Physical Therapy Plan Frequency and Duration Frequency of Treatment 2x/Week Duration of Treatment 12 weeks Plan of Care Start Date 04/09/19 Plan of Care End Date 07/02/19 Therapeutic Interventions Therapeutic Interventions Aquatic Therapy,Balance Training,Gait Training,Home Exercise Program,Joint Mobilizations,Manual Therapy, Neuromuscular Re-education, Patient/Caregiver Education, Self-Care/Home Management,Soft Tissue Mobilization, Therapeutic Activities, Therapeutic Exercises Modalities Cold Pack/Ice Massage,Electric Stimulation,Hot Packs, Ultrasound Next Visit Focus/Plan Next Note Type Treatment Note Next Visit Plan Recumbent bike, LE strengthening, gait training
--- NOTE | 2019-04-09 16:00 | PT.OPPOC ---
Current Diagnoses Unilateral primary osteoarthritis, unspecified knee (04/09/19) Visit Care Team Role Provider Type Danyell Fagan MD Primary Care Provider Non-Staff Specialty: Medical Address: [address] [place] [address], [place], [address] Email: Duran Grossman MD Attending Provider Physician Specialty: Orthopedic Surgery Address: [address] [place] [address], [id number] Email: [email or web address] Plan Of Care PT-OP-T Assessment and Plan Start: 03/11/19 17:31 Freq: Status: Active Protocol: Document 04/09/19 13:45 DCW (Rec: 04/09/19 15:59 DCW [id number]) Physical Therapy Assessment Rehab Potential Rehabilitation Potential Good Evaluation Complexity Number of Personal Factors/Comorbidities 1-2 Number of Body Systems Impaired 1-2 Clinical Presentation at Evaluation Stable Impairments Impairments Activity Tolerance,Functional Mobility,Gait,Integument,Pain, ROM,Soft Tissue Mobility, Strength,Transfers Goals Four Impairment Pt unable to participate in his hobby of Mountain Biking Retirement Goal (LTG) Pt to tolerate road biking 1 mile as a step to return to Mountain Biking LTG Duration 06/10/18 Three Impairment Pt limited L knee ROM to 11-86 ? Retirement Goal (LTG) Pt to demonstrate left knee ROM 0-120? LTG Duration 06/10/18 Two Impairment Pt limited to 550' in ambulation distance Rn Flight Goal (LTG) Pt to ambulate 1000' without an assistive device during 6 MWT to demonstrate a gait speed appropriate for independent community ambulation LTG Duration 06/10/18 One Impairment Pt does not have an appropriate home exercise program Short Term Goal (STG) Pt will be independent and compliant with an appropriate HEP STG Duration 05/10/19 Assessment Summary Assessment Pt presents today doing very well three days post-op. Pt has an appropriate gait pattern while using his 4WW, with good heel strike and push off, shows good knee flexion, but has a slower, though expected, gait estelita. Pt shows joint effusion and loss of ROM, some LE weakness, and pain, all which is expected following TKA. Pt very motivated, and is already doing well with his post-op HEP. Pt will likely progress through therapy quickly, and will hopefully be able to return to his hobbies of snowboarding and mountain biking. Physical Therapy Plan Frequency and Duration Frequency of Treatment 2x/Week Duration of Treatment 12 weeks Plan of Care Start Date 04/09/19 Plan of Care End Date 07/02/19 Therapeutic Interventions Therapeutic Interventions Aquatic Therapy,Balance Training,Gait Training,Home Exercise Program,Joint Mobilizations,Manual Therapy, Neuromuscular Re-education, Patient/Caregiver Education, Self-Care/Home Management,Soft Tissue Mobilization, Therapeutic Activities, Therapeutic Exercises Modalities Cold Pack/Ice Massage,Electric Stimulation,Hot Packs, Ultrasound Next Visit Focus/Plan Next Note Type Treatment Note Next Visit Plan Recumbent bike, LE strengthening, gait training Plan of Care Dates Plan of Care Start Date 04/09/19 Plan of Care End Date 07/02/19
--- NOTE | 2019-04-13 13:50 | PT.OTN ---
Current Diagnoses Unilateral primary osteoarthritis, unspecified knee (04/13/19) Physical Therapy Treatment Note PT-OP-A Visit Information Start: 03/11/19 17:31 Freq: Status: Active Protocol: Document 04/13/19 13:02 (Rec: 04/13/19 13:49 [id number]) Out-Patient Physical Therapy Visit Information Visit Information Visit Type Treatment Note Visit Note Pt's attended tx session Visit Start Time 13:02 Visit Stop Time 13:45 Total Visit Minutes 43 Visit Number 3 Number of LANDSCAPE PAINTER Visits 0 PT-OP-B Current Condition Start: 03/11/19 17:31 Freq: Status: Active Protocol: Document 04/09/19 13:45 DCW (Rec: 04/09/19 15:46 DCW [id number]) Current Condition History of Current Condition Onset Date Multi-year history Current Complaints L TKA 04/06/19 History of Current Condition Pt is a 64 year old male presenting for a [facility] eval 4 weeks pre-op L TKA. Pt has long-standing knee pain with limited ROM and failure of conservative treatment. Pt notes that he has been bone- on-bone for quite a while, and the pain is now limiting his activities. Pt enjoys snowboarding, surfing, waterskiing, and mountain biking, and would like to return to these activities following his TKA. 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 Pt notes that he has learned to compensate for his limited ROM. ADDENDUM 04/09/19: Pt returned to skilled therapy 3 days s/p L TKA. PT reports that overall he is doing well, was able to leave the hospital day of surgery, and has been feeling confident performing his HEP and walking with the 4WW. Pt still reports his goals are to return to Mountain Biking and Snowboarding. PT-OP-C Subjective Start: 03/11/19 17:31 Freq: Status: Active Protocol: Document 04/13/19 13:02 (Rec: 04/13/19 13:49 [id number]) OP-PT Subjective Patient Comments Patient Comments I've got a lot of bruising on my legs but the doctor said that's normal. I have been trying to use ibuprofen, ice, elevation to get the swelling down. I went to work a couple times just to see how I did but it made my knee hurt more and my bruising worse. Patient Reported Progress Improving PT-OP-E Functional Tests Start: 03/11/19 17:31 Freq: Status: Active Protocol: Document 04/09/19 13:45 DCW (Rec: 04/09/19 15:46 DCW [id number]) Functional Tests 6 Minute Walk Test Distance 529 Device Used 4WW PT-OP-G Mobility & Gait Start: 03/11/19 17:31 Freq: Status: Active Protocol: Document 04/09/19 13:45 DCW (Rec: 04/09/19 15:46 DCW [id number]) OP Gait Assessment Gait Gait Assistance Required: Standby Assistance Distance (Feet) 550 Able to Maintain Weight Bearing Status Yes During Gait Assistive Devices Assistive Device 4 Wheeled Walker Gait Deviations General Gait Pattern Antalgic PT-OP-J Posture/Palpation/Skin Start: 04/09/19 15:46 Freq: Status: Active Protocol: Document 04/09/19 13:45 DCW (Rec: 04/09/19 15:59 DCW [id number]) Skin Assessment Circumference Measurement 3 Location 10 cm inferior to L patella Measurement (Centimeters) 39.9 Comments 10 inferior to R patella = 37. 8 2 Location 10 cm superior to L patella Measurement (Centimeters) 47.6 Comments 10 cm superior to R patella = 42.2 1 Location Left knee joint line Measurement (Centimeters) 44.0 Comments Right knee joint line = 40.2 cm PT-OP-K Range of Motion Start: 03/11/19 17:31 Freq: Status: Active Protocol: Document 04/09/19 13:45 DCW (Rec: 04/09/19 15:46 DCW [id number]) Knee Goniometric Range of Motion Knee Left Flexion Active (degrees) 85 Flexion Passive (degrees) 86 Extension Active (degrees) 11 Extension Passive (degrees) 11 Knee ROM Limitations Knee ROM Limitations Soft Tissue Tightness,Muscle Weakness,Pain,Swelling PT-OP-M Strength Start: 03/11/19 17:31 Freq: Status: Active Protocol: Document 04/09/19 13:45 DCW (Rec: 04/09/19 15:46 DCW [id number]) Knee Strength Knee Manual Muscle Testing Left Flexion (S2) 3- Fair- Extension (L3) 3- Fair- PT-OP-Q Treatments Start: 03/11/19 17:31 Freq: Status: Active Protocol: Document 04/13/19 13:02 (Rec: 04/13/19 13:49 [id number]) Therapeutic Exercises Supine Exercises Heel slides Side left Reps/Minutes x15 Comments with towel under foot; cuing to fully straigthen leg in between Quad sets Supine Exercise Name quad isometric Side left Reps/Minutes 10x5 Comments with heel propped on pillow Standing Exercises TKE Side left Equipment Used level 1 band Reps/Minutes x15 Gait Training Gait Activity heel/toe rock Description weightshifting forward/ backward in stagger stance Device Used // bars Treatment Focus TKE when weightbearing Comments keeping L knee straight Manual Therapy Treatment Soft Tissue Mobilization Hamstrings Body Location L hamstrings Mobilization Type Instrument Assisted Intensity/Depth Moderate Body Position Prone Comments with rolling pin; ankle supported for ~20dg knee flexion IT band Body Location L band Mobilization Type Instrument Assisted Intensity/Depth Moderate Body Position Supine Comments with rolling pin Quad Body Location L quad Mobilization Type Instrument Assisted Intensity/Depth Moderate Body Position Supine Comments with rolling pin PT-OP-T Assessment and Plan Start: 03/11/19 17:31 Freq: Status: Active Protocol: Document 04/13/19 13:02 (Rec: 04/13/19 13:49 [id number]) Physical Therapy Assessment Goals Four Impairment Pt unable to participate in his hobby of Mountain Biking Assisted Goal (LTG) Pt to tolerate road biking 1 mile as a step to return to Mountain Biking LTG Duration 06/10/18 Three Impairment Pt limited L knee ROM to 11-86 ? Assisted Goal (LTG) Pt to demonstrate left knee ROM 0-120? LTG Duration 06/10/18 Two Impairment Pt limited to 550' in ambulation distance Iron Caster Goal (LTG) Pt to ambulate 1000' without an assistive device during 6 MWT to demonstrate a gait speed appropriate for independent community ambulation LTG Duration 06/10/18 One Impairment Pt does not have an appropriate home exercise program Short Term Goal (STG) Pt will be independent and compliant with an appropriate HEP STG Duration 05/10/19 Assessment Summary Assessment Start of tx: L knee ROM 11-85 dg. L girth measurements 10 cm superior to patella = 49 cm, joint line = 44 cm, 10 cm inferior to patella = 39 cm. After MT: L knee ROM 10-88 dg. After ther ex: L knee ROM 7-90 dg Pt presents with brusing on posterior thigh (lateral and medial sides) but no tenderness to touch/pressure. Cont to demonstrate limited knee ROM but improved after MT to address swelling and soft tissue tightness and ther ex. Disc benefit of not standing/ sitting in one position for too long, completing AROM frequently during day to improve swelling and ROM. Added standing TKE with level 1 band and heel/toe rock to HEP. Physical Therapy Plan Next Visit Focus/Plan Next Note Type Treatment Note Next Visit Plan Recumbent bike, LE strengthening, gait training MT to address swelling AROM
--- NOTE | 2019-04-15 14:32 | PT.OTN ---
Current Diagnoses Unilateral primary osteoarthritis, unspecified knee (04/15/19) Physical Therapy Treatment Note PT-OP-A Visit Information Start: 03/11/19 17:31 Freq: Status: Active Protocol: Document 04/15/19 13:45 DCW (Rec: 04/15/19 14:31 DCW [id number]) Out-Patient Physical Therapy Visit Information Visit Information Visit Type Treatment Note Visit Start Time 13:45 Visit Stop Time 14:30 Total Visit Minutes 45 Visit Number 4 Number of FIRER MARINE Visits 0 Evaluation Information Evaluation Date 03/11/19 PT-OP-B Current Condition Start: 03/11/19 17:31 Freq: Status: Active Protocol: Document 04/09/19 13:45 DCW (Rec: 04/09/19 15:46 DCW [id number]) Current Condition History of Current Condition Onset Date Multi-year history Current Complaints L TKA 04/06/19 History of Current Condition Pt is a 64 year old male presenting for a [facility] eval 4 weeks pre-op L TKA. Pt has long-standing knee pain with limited ROM and failure of conservative treatment. Pt notes that he has been bone- on-bone for quite a while, and the pain is now limiting his activities. Pt enjoys snowboarding, surfing, waterskiing, and mountain biking, and would like to return to these activities following his TKA. 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 Pt notes that he has learned to compensate for his limited ROM. ADDENDUM 04/09/19: Pt returned to skilled therapy 3 days s/p L TKA. PT reports that overall he is doing well, was able to leave the hospital day of surgery, and has been feeling confident performing his HEP and walking with the 4WW. Pt still reports his goals are to return to Mountain Biking and Snowboarding. PT-OP-C Subjective Start: 03/11/19 17:31 Freq: Status: Active Protocol: Document 04/15/19 13:45 DCW (Rec: 04/15/19 14:31 DCW [id number]) OP-PT Subjective Patient Comments Patient Comments Pt reports that everything seems to be going well, he is sleeping better at night. Patient Reported Progress Improving PT-OP-E Functional Tests Start: 03/11/19 17:31 Freq: Status: Active Protocol: Document 04/09/19 13:45 DCW (Rec: 04/09/19 15:46 DCW [id number]) Functional Tests 6 Minute Walk Test Distance 529 Device Used 4WW PT-OP-G Mobility & Gait Start: 03/11/19 17:31 Freq: Status: Active Protocol: Document 04/09/19 13:45 DCW (Rec: 04/09/19 15:46 DCW [id number]) OP Gait Assessment Gait Gait Assistance Required: Standby Assistance Distance (Feet) 550 Able to Maintain Weight Bearing Status Yes During Gait Assistive Devices Assistive Device 4 Wheeled Walker Gait Deviations General Gait Pattern Antalgic PT-OP-J Posture/Palpation/Skin Start: 04/09/19 15:46 Freq: Status: Active Protocol: Document 04/09/19 13:45 DCW (Rec: 04/09/19 15:59 DCW [id number]) Skin Assessment Circumference Measurement 3 Location 10 cm inferior to L patella Measurement (Centimeters) 39.9 Comments 10 inferior to R patella = 37. 8 2 Location 10 cm superior to L patella Measurement (Centimeters) 47.6 Comments 10 cm superior to R patella = 42.2 1 Location Left knee joint line Measurement (Centimeters) 44.0 Comments Right knee joint line = 40.2 cm PT-OP-K Range of Motion Start: 03/11/19 17:31 Freq: Status: Active Protocol: Document 04/09/19 13:45 DCW (Rec: 04/09/19 15:46 DCW [id number]) Knee Goniometric Range of Motion Knee Left Flexion Active (degrees) 85 Flexion Passive (degrees) 86 Extension Active (degrees) 11 Extension Passive (degrees) 11 Knee ROM Limitations Knee ROM Limitations Soft Tissue Tightness,Muscle Weakness,Pain,Swelling PT-OP-M Strength Start: 03/11/19 17:31 Freq: Status: Active Protocol: Document 04/09/19 13:45 DCW (Rec: 04/09/19 15:46 DCW [id number]) Knee Strength Knee Manual Muscle Testing Left Flexion (S2) 3- Fair- Extension (L3) 3- Fair- PT-OP-Q Treatments Start: 03/11/19 17:31 Freq: Status: Active Protocol: Document 04/15/19 13:45 DCW (Rec: 04/15/19 14:31 DCW [id number]) Cardio Equipment Recumbent Bicycle Duration (Minutes) 5 Resistance 0 Seat Position 4 Other unable to complete full rotation Gym Equipment Shuttle Recovery Unilateral Squats Resistance 25# Shuttle Recovery Platform Stable Bilateral Squats Resistance 62# Shuttle Recovery Platform Stable Therapeutic Ball Flexion Stretch Exercise Details Flexion stretch /c strap overpressure Ball Size/Color Blue - 45 cm Body Position Supine Therapeutic Exercises Supine Exercises Knee Extension Stretch Supine Exercise Name Extension Stretch Side left Equipment Used Towel Roll Standing Exercises Extension Standing Exercise Name Hip Extension Side left Resistance Lv 3 Equipment Used T-band Knee Flexion Stretch Standing Exercise Name Step stretch Side left TKE Side left Resistance Lv 3 Equipment Used T-band Reps/Minutes x15 Gait Training Gait Activity SPC Training Description SPC training Device Used SPC Level of Assistance SBA Surface Level and Stairs PT-OP-T Assessment and Plan Start: 03/11/19 17:31 Freq: Status: Active Protocol: Document 04/15/19 13:45 DCW (Rec: 04/15/19 14:31 DCW [id number]) Physical Therapy Assessment Impairments Impairments Activity Tolerance,Functional Mobility,Gait,Integument,Pain, ROM,Soft Tissue Mobility, Strength,Transfers Goals Four Impairment Pt unable to participate in his hobby of Mountain Biking Floor Manager Goal (LTG) Pt to tolerate road biking 1 mile as a step to return to Mountain Biking LTG Duration 06/10/18 Three Impairment Pt limited L knee ROM to 11-86 ? Intermediate Goal (LTG) Pt to demonstrate left knee ROM 0-120? LTG Duration 06/10/18 Two Impairment Pt limited to 550' in ambulation distance Floor Manager Goal (LTG) Pt to ambulate 1000' without an assistive device during 6 MWT to demonstrate a gait speed appropriate for independent community ambulation LTG Duration 06/10/18 One Impairment Pt does not have an appropriate home exercise program Short Term Goal (STG) Pt will be independent and compliant with an appropriate HEP STG Duration 05/10/19 Assessment Summary Assessment Pt doing very well 9 days post -op, showing improvement with ROM and strength. Pt tolerating treatment well, and performed well ambulating with a SPC. Physical Therapy Plan Frequency and Duration Frequency of Treatment 2x/Week Duration of Treatment 12 weeks Plan of Care Start Date 04/09/19 Plan of Care End Date 07/02/19 Therapeutic Interventions Therapeutic Interventions Aquatic Therapy,Balance Training,Gait Training,Home Exercise Program,Joint Mobilizations,Manual Therapy, Neuromuscular Re-education, Patient/Caregiver Education, Self-Care/Home Management,Soft Tissue Mobilization, Therapeutic Activities, Therapeutic Exercises Modalities Cold Pack/Ice Massage,Electric Stimulation,Hot Packs, Ultrasound Next Visit Focus/Plan Next Note Type Treatment Note Next Visit Plan Recumbent bike, LE strengthening, gait training
--- NOTE | 2019-04-19 17:41 | PT.OTN ---
Current Diagnoses Unilateral primary osteoarthritis, unspecified knee (04/19/19) Physical Therapy Treatment Note PT-OP-A Visit Information Start: 03/11/19 17:31 Freq: Status: Active Protocol: Document 04/19/19 16:45 DCW (Rec: 04/19/19 17:41 DCW [id number]) Out-Patient Physical Therapy Visit Information Visit Information Visit Type Treatment Note Visit Start Time 16:45 Visit Stop Time 17:30 Total Visit Minutes 45 Visit Number 5 Number of ELECTRICAL LOGGING OPERATOR Visits 0 Evaluation Information Evaluation Date 03/11/19 PT-OP-B Current Condition Start: 03/11/19 17:31 Freq: Status: Active Protocol: Document 04/09/19 13:45 DCW (Rec: 04/09/19 15:46 DCW [id number]) Current Condition History of Current Condition Onset Date Multi-year history Current Complaints L TKA 04/06/19 History of Current Condition Pt is a 64 year old male presenting for a [facility] eval 4 weeks pre-op L TKA. Pt has long-standing knee pain with limited ROM and failure of conservative treatment. Pt notes that he has been bone- on-bone for quite a while, and the pain is now limiting his activities. Pt enjoys snowboarding, surfing, waterskiing, and mountain biking, and would like to return to these activities following his TKA. 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 Pt notes that he has learned to compensate for his limited ROM. ADDENDUM 04/09/19: Pt returned to skilled therapy 3 days s/p L TKA. PT reports that overall he is doing well, was able to leave the hospital day of surgery, and has been feeling confident performing his HEP and walking with the 4WW. Pt still reports his goals are to return to Mountain Biking and Snowboarding. PT-OP-C Subjective Start: 03/11/19 17:31 Freq: Status: Active Protocol: Document 04/19/19 16:45 DCW (Rec: 04/19/19 17:41 DCW [id number]) OP-PT Subjective Patient Comments Patient Comments Pt reports his bandage got taken off, which helped it feel a lot better. PT-OP-E Functional Tests Start: 03/11/19 17:31 Freq: Status: Active Protocol: Document 04/09/19 13:45 DCW (Rec: 04/09/19 15:46 DCW [id number]) Functional Tests 6 Minute Walk Test Distance 529 Device Used 4WW PT-OP-G Mobility & Gait Start: 03/11/19 17:31 Freq: Status: Active Protocol: Document 04/09/19 13:45 DCW (Rec: 04/09/19 15:46 DCW [id number]) OP Gait Assessment Gait Gait Assistance Required: Standby Assistance Distance (Feet) 550 Able to Maintain Weight Bearing Status Yes During Gait Assistive Devices Assistive Device 4 Wheeled Walker Gait Deviations General Gait Pattern Antalgic PT-OP-J Posture/Palpation/Skin Start: 04/09/19 15:46 Freq: Status: Active Protocol: Document 04/09/19 13:45 DCW (Rec: 04/09/19 15:59 DCW [id number]) Skin Assessment Circumference Measurement 3 Location 10 cm inferior to L patella Measurement (Centimeters) 39.9 Comments 10 inferior to R patella = 37. 8 2 Location 10 cm superior to L patella Measurement (Centimeters) 47.6 Comments 10 cm superior to R patella = 42.2 1 Location Left knee joint line Measurement (Centimeters) 44.0 Comments Right knee joint line = 40.2 cm PT-OP-K Range of Motion Start: 03/11/19 17:31 Freq: Status: Active Protocol: Document 04/09/19 13:45 DCW (Rec: 04/09/19 15:46 DCW [id number]) Knee Goniometric Range of Motion Knee Left Flexion Active (degrees) 85 Flexion Passive (degrees) 86 Extension Active (degrees) 11 Extension Passive (degrees) 11 Knee ROM Limitations Knee ROM Limitations Soft Tissue Tightness,Muscle Weakness,Pain,Swelling PT-OP-M Strength Start: 03/11/19 17:31 Freq: Status: Active Protocol: Document 04/09/19 13:45 DCW (Rec: 04/09/19 15:46 DCW [id number]) Knee Strength Knee Manual Muscle Testing Left Flexion (S2) 3- Fair- Extension (L3) 3- Fair- PT-OP-Q Treatments Start: 03/11/19 17:31 Freq: Status: Active Protocol: Document 04/19/19 16:45 DCW (Rec: 04/19/19 17:41 DCW [id number]) Cardio Equipment Recumbent Bicycle Duration (Minutes) 5 Resistance 0 Seat Position 4 Gym Equipment Shuttle Recovery Unilateral Squats Resistance 37# Shuttle Recovery Platform Stable Bilateral Squats Resistance 75# Shuttle Recovery Platform Stable Therapeutic Exercises Supine Exercises Knee Flexion Supine Exercise Name Supine knee flexion Side left Comments Manual pressure Bridging Supine Exercise Name Bridging Side bilateral Knee Extension Stretch Supine Exercise Name Extension Stretch Side left Equipment Used Towel Roll Comments Manual Pressure Standing Exercises Step-ups Standing Exercise Name Step-ups Side left Equipment Used 6 step Extension Standing Exercise Name Hip Extension Side left Resistance Lv 3 Equipment Used T-band Knee Flexion Stretch Standing Exercise Name Step stretch Side left TKE Side left Resistance Lv 3 Equipment Used T-band Reps/Minutes x15 Other Exercises Lunge Other Exercise Name Lunge onto BOSU Side left Equipment Used BOSU PT-OP-T Assessment and Plan Start: 03/11/19 17:31 Freq: Status: Active Protocol: Document 04/19/19 16:45 DCW (Rec: 04/19/19 17:41 DCW [id number]) Physical Therapy Assessment Impairments Impairments Activity Tolerance,Functional Mobility,Gait,Integument,Pain, ROM,Soft Tissue Mobility, Strength,Transfers Goals Four Impairment Pt unable to participate in his hobby of Mountain Biking [facility] Goal (LTG) Pt to tolerate road biking 1 mile as a step to return to Mountain Biking LTG Duration 06/10/18 Three Impairment Pt limited L knee ROM to 11-86 ? [facility]ci Goal (LTG) Pt to demonstrate left knee ROM 0-120? LTG Duration 06/10/18 Two Impairment Pt limited to 550' in ambulation distance Master Of Ceremonies Goal (LTG) Pt to ambulate 1000' without an assistive device during 6 MWT to demonstrate a gait speed appropriate for independent community ambulation LTG Duration 06/10/18 One Impairment Pt does not have an appropriate home exercise program Short Term Goal (STG) Pt will be independent and compliant with an appropriate HEP STG Duration 05/10/19 Assessment Summary Assessment Pt continues to progress well, improving gait, strength, and ROM Physical Therapy Plan Frequency and Duration Frequency of Treatment 2x/Week Duration of Treatment 12 weeks Plan of Care Start Date 04/09/19 Plan of Care End Date 07/02/19 Therapeutic Interventions Therapeutic Interventions Aquatic Therapy,Balance Training,Gait Training,Home Exercise Program,Joint Mobilizations,Manual Therapy, Neuromuscular Re-education, Patient/Caregiver Education, Self-Care/Home Management,Soft Tissue Mobilization, Therapeutic Activities, Therapeutic Exercises Modalities Cold Pack/Ice Massage,Electric Stimulation,Hot Packs, Ultrasound Next Visit Focus/Plan Next Note Type Treatment Note Next Visit Plan Recumbent bike, LE strengthening, gait training
--- NOTE | 2019-04-22 17:36 | PT.OTN ---
Current Diagnoses Unilateral primary osteoarthritis, unspecified knee (04/22/19) Physical Therapy Treatment Note PT-OP-A Visit Information Start: 03/11/19 17:31 Freq: Status: Active Protocol: Document 04/22/19 16:45 DCW (Rec: 04/22/19 17:36 DCW [id number]) Out-Patient Physical Therapy Visit Information Visit Information Visit Type Treatment Note Visit Start Time 16:45 Visit Stop Time 17:30 Total Visit Minutes 45 Visit Number 6 Number of TIMBER GIRDLER Visits 0 Evaluation Information Evaluation Date 03/11/19 PT-OP-B Current Condition Start: 03/11/19 17:31 Freq: Status: Active Protocol: Document 04/09/19 13:45 DCW (Rec: 04/09/19 15:46 DCW [id number]) Current Condition History of Current Condition Onset Date Multi-year history Current Complaints L TKA 04/06/19 History of Current Condition Pt is a 64 year old male presenting for a [facility] eval 4 weeks pre-op L TKA. Pt has long-standing knee pain with limited ROM and failure of conservative treatment. Pt notes that he has been bone- on-bone for quite a while, and the pain is now limiting his activities. Pt enjoys snowboarding, surfing, waterskiing, and mountain biking, and would like to return to these activities following his TKA. 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 Pt notes that he has learned to compensate for his limited ROM. ADDENDUM 04/09/19: Pt returned to skilled therapy 3 days s/p L TKA. PT reports that overall he is doing well, was able to leave the hospital day of surgery, and has been feeling confident performing his HEP and walking with the 4WW. Pt still reports his goals are to return to Mountain Biking and Snowboarding. PT-OP-C Subjective Start: 03/11/19 17:31 Freq: Status: Active Protocol: Document 04/22/19 16:45 DCW (Rec: 04/22/19 17:36 DCW [id number]) OP-PT Subjective Patient Comments Patient Comments Pt reports he was on his feet all day today, it was his first full day really up and around, so he is swollen, but is very happy with his current level of improvement. PT-OP-E Functional Tests Start: 03/11/19 17:31 Freq: Status: Active Protocol: Document 04/09/19 13:45 DCW (Rec: 04/09/19 15:46 DCW [id number]) Functional Tests 6 Minute Walk Test Distance 529 Device Used 4WW PT-OP-G Mobility & Gait Start: 03/11/19 17:31 Freq: Status: Active Protocol: Document 04/09/19 13:45 DCW (Rec: 04/09/19 15:46 DCW [id number]) OP Gait Assessment Gait Gait Assistance Required: Standby Assistance Distance (Feet) 550 Able to Maintain Weight Bearing Status Yes During Gait Assistive Devices Assistive Device 4 Wheeled Walker Gait Deviations General Gait Pattern Antalgic PT-OP-J Posture/Palpation/Skin Start: 04/09/19 15:46 Freq: Status: Active Protocol: Document 04/09/19 13:45 DCW (Rec: 04/09/19 15:59 DCW [id number]) Skin Assessment Circumference Measurement 3 Location 10 cm inferior to L patella Measurement (Centimeters) 39.9 Comments 10 inferior to R patella = 37. 8 2 Location 10 cm superior to L patella Measurement (Centimeters) 47.6 Comments 10 cm superior to R patella = 42.2 1 Location Left knee joint line Measurement (Centimeters) 44.0 Comments Right knee joint line = 40.2 cm PT-OP-K Range of Motion Start: 03/11/19 17:31 Freq: Status: Active Protocol: Document 04/09/19 13:45 DCW (Rec: 04/09/19 15:46 DCW [id number]) Knee Goniometric Range of Motion Knee Left Flexion Active (degrees) 85 Flexion Passive (degrees) 86 Extension Active (degrees) 11 Extension Passive (degrees) 11 Knee ROM Limitations Knee ROM Limitations Soft Tissue Tightness,Muscle Weakness,Pain,Swelling PT-OP-M Strength Start: 03/11/19 17:31 Freq: Status: Active Protocol: Document 04/09/19 13:45 DCW (Rec: 04/09/19 15:46 DCW [id number]) Knee Strength Knee Manual Muscle Testing Left Flexion (S2) 3- Fair- Extension (L3) 3- Fair- PT-OP-Q Treatments Start: 03/11/19 17:31 Freq: Status: Active Protocol: Document 04/22/19 16:45 DCW (Rec: 04/22/19 17:36 DCW [id number]) Cardio Equipment Recumbent Bicycle Duration (Minutes) 5 Resistance 6 Seat Position 4 Gym Equipment Shuttle Recovery Unilateral Squats Resistance 50# Shuttle Recovery Platform Stable Bilateral Squats Resistance 100# Shuttle Recovery Platform Stable Therapeutic Exercises Supine Exercises Knee Flexion Supine Exercise Name Supine knee flexion Side left Comments Manual pressure Knee Extension Stretch Supine Exercise Name Extension Stretch Side left Equipment Used Towel Roll Comments Manual Pressure Standing Exercises Knee Flexion Stretch Standing Exercise Name Step stretch Side left Other Exercises Resisted Ambulation Other Exercise Name Side-stepping, Fwd, Bkwd Resistance Green Equipment Used T-band Lunge Other Exercise Name Lunge onto BOSU Side left Equipment Used BOSU PT-OP-T Assessment and Plan Start: 03/11/19 17:31 Freq: Status: Active Protocol: Document 04/22/19 16:45 DCW (Rec: 04/22/19 17:36 DCW [id number]) Physical Therapy Assessment Impairments Impairments Activity Tolerance,Functional Mobility,Gait,Integument,Pain, ROM,Soft Tissue Mobility, Strength,Transfers Goals Four Impairment Pt unable to participate in his hobby of Mountain Biking [facility] Goal (LTG) Pt to tolerate road biking 1 mile as a step to return to Mountain Biking LTG Duration 06/10/18 Three Impairment Pt limited L knee ROM to 11-86 ? Job Service Consultant Goal (LTG) Pt to demonstrate left knee ROM 0-120? LTG Duration 06/10/18 Two Impairment Pt limited to 550' in ambulation distance Job Service Consultant Goal (LTG) Pt to ambulate 1000' without an assistive device during 6 MWT to demonstrate a gait speed appropriate for independent community ambulation LTG Duration 06/10/18 One Impairment Pt does not have an appropriate home exercise program Short Term Goal (STG) Pt will be independent and compliant with an appropriate HEP STG Duration 05/10/19 Assessment Summary Assessment Pt still doing very well, progressing more each visit. Flexion ROM has surpassed his pre-op measurements. Physical Therapy Plan Frequency and Duration Frequency of Treatment 2x/Week Duration of Treatment 12 weeks Plan of Care Start Date 04/09/19 Plan of Care End Date 07/02/19 Therapeutic Interventions Therapeutic Interventions Aquatic Therapy,Balance Training,Gait Training,Home Exercise Program,Joint Mobilizations,Manual Therapy, Neuromuscular Re-education, Patient/Caregiver Education, Self-Care/Home Management,Soft Tissue Mobilization, Therapeutic Activities, Therapeutic Exercises Modalities Cold Pack/Ice Massage,Electric Stimulation,Hot Packs, Ultrasound Next Visit Focus/Plan Next Note Type Treatment Note Next Visit Plan Recumbent bike, LE strengthening, gait training
--- NOTE | 2019-04-30 15:25 | PT.OTN ---
Current Diagnoses Unilateral primary osteoarthritis, unspecified knee (04/30/19) Physical Therapy Treatment Note PT-OP-A Visit Information Start: 03/11/19 17:31 Freq: Status: Active Protocol: Document 04/30/19 14:45 SP (Rec: 04/30/19 15:57 SP [id number]) Out-Patient Physical Therapy Visit Information Visit Information Visit Type Treatment Note Visit Note 15 min late for appt Visit Start Time 14:45 Visit Stop Time 13:25 Total Visit Minutes 40 Visit Number 7 Number of ADVANCED PRACTICE PSYCHIATRIC NURSE Visits 1 PT-OP-B Current Condition Start: 03/11/19 17:31 Freq: Status: Active Protocol: Document 04/09/19 13:45 DCW (Rec: 04/09/19 15:46 DCW [id number]) Current Condition History of Current Condition Onset Date Multi-year history Current Complaints L TKA 04/06/19 History of Current Condition Pt is a 64 year old male [facility] 4 weeks pre-op L TKA. Pt has long-standing knee pain with limited ROM and failure of conservative treatment. Pt notes that he has been bone- on-bone for quite a while, and the pain is now limiting his activities. Pt enjoys snowboarding, surfing, waterskiing, and mountain biking, and would like to return to these activities following his TKA. 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 Pt notes that he has learned to compensate for his limited ROM. ADDENDUM 04/09/19: Pt returned to skilled therapy 3 days s/p L TKA. PT reports that overall he is doing well, was able to leave the hospital day of surgery, and has been feeling confident performing his HEP and walking with the 4WW. Pt still reports his goals are to return to Mountain Biking and Snowboarding. PT-OP-C Subjective Start: 03/11/19 17:31 Freq: Status: Active Protocol: Document 04/30/19 14:45 SP (Rec: 04/30/19 15:57 SP [id number]) OP-PT Subjective Patient Comments Patient Comments Pt arrives using SPC, very little WB use. Pt stated L knee doing well, was riding motorcycles with grandsons and challenged by gear shift at first with LLE but improved. LLE did get pulled back one time durign the ride might have stretched knee but seemed to help, not intended though. Able to stand longer at work and getting in/out sport car and SUV clutch. Patient Reported Progress Improving PT-OP-E Functional Tests Start: 03/11/19 17:31 Freq: Status: Active Protocol: Document 04/09/19 13:45 DCW (Rec: 04/09/19 15:46 DCW [id number]) Functional Tests 6 Minute Walk Test Distance 529 Device Used 4WW PT-OP-G Mobility & Gait Start: 03/11/19 17:31 Freq: Status: Active Protocol: Document 04/09/19 13:45 DCW (Rec: 04/09/19 15:46 DCW [id number]) OP Gait Assessment Gait Gait Assistance Required: Standby Assistance Distance (Feet) 550 Able to Maintain Weight Bearing Status Yes During Gait Assistive Devices Assistive Device 4 Wheeled Walker Gait Deviations General Gait Pattern Antalgic PT-OP-J Posture/Palpation/Skin Start: 04/09/19 15:46 Freq: Status: Active Protocol: Document 04/09/19 13:45 DCW (Rec: 04/09/19 15:59 DCW [id number]) Skin Assessment Circumference Measurement 3 Location 10 cm inferior to L patella Measurement (Centimeters) 39.9 Comments 10 inferior to R patella = 37. 8 2 Location 10 cm superior to L patella Measurement (Centimeters) 47.6 Comments 10 cm superior to R patella = 42.2 1 Location Left knee joint line Measurement (Centimeters) 44.0 Comments Right knee joint line = 40.2 cm PT-OP-K Range of Motion Start: 03/11/19 17:31 Freq: Status: Active Protocol: Document 04/09/19 13:45 DCW (Rec: 04/09/19 15:46 DCW [id number]) Knee Goniometric Range of Motion Knee Left Flexion Active (degrees) 85 Flexion Passive (degrees) 86 Extension Active (degrees) 11 Extension Passive (degrees) 11 Knee ROM Limitations Knee ROM Limitations Soft Tissue Tightness,Muscle Weakness,Pain,Swelling PT-OP-M Strength Start: 03/11/19 17:31 Freq: Status: Active Protocol: Document 04/09/19 13:45 DCW (Rec: 04/09/19 15:46 DCW [id number]) Knee Strength Knee Manual Muscle Testing Left Flexion (S2) 3- Fair- Extension (L3) 3- Fair- PT-OP-Q Treatments Start: 03/11/19 17:31 Freq: Status: Active Protocol: Document 04/30/19 14:45 SP (Rec: 04/30/19 15:57 SP [id number]) Cardio Equipment Recumbent Bicycle Duration (Minutes) 5 Resistance 6 Seat Position 4 Gym Equipment Shuttle Recovery Unilateral Squats Details cued knee behind and with mid foot, midfoot/ heel press, slow eccentric Resistance 50# Shuttle Recovery Platform Stable Reps/Time 4x20 Bilateral Squats Details cued slow pacing Resistance 125# Shuttle Recovery Platform Stable Reps/Time 3x20 Therapeutic Exercises Supine Exercises Knee Flexion Supine Exercise Name Supine knee flexion Side left Reps/Minutes AROM 118*, AAROM 122* Comments Manual pressure Knee Extension Stretch Supine Exercise Name Extension Stretch Side left Equipment Used Towel Roll Comments Manual Pressure (AROM 3 deg) Prone Exercises prone hang Side left Reps/Minutes 30 sec x2 Comments use of R LE support if needded Standing Exercises wall squat Equipment Used niuean ball Reps/Minutes x10 Comments cued proper knee alignment with /behind toes >90 deg flexion Other Exercises Lunge Other Exercise Name Lunge onto BOSU (forward/side) Side left Equipment Used BOSU Comments cued knee behind toes, sit back into glut/ midfoot heel CHINEDU Manual Therapy Treatment Soft Tissue Mobilization scar mob Body Location L knee scar mob Body Position Supine Comments instructed keep finger together, do not spread scar ( see hand out) PT-OP-T Assessment and Plan Start: 03/11/19 17:31 Freq: Status: Active Protocol: Document 04/30/19 14:45 SP (Rec: 04/30/19 15:57 SP [id number]) Physical Therapy Assessment Goals Four Impairment Pt unable to participate in his hobby of Mountain Biking Mini Lab Operator Goal (LTG) Pt to tolerate road biking 1 mile as a step to return to Mountain Biking LTG Duration 06/10/18 Three Impairment Pt limited L knee ROM to 11-86 ? Mini Lab Operator Goal (LTG) Pt to demonstrate left knee ROM 0-120? LTG Duration 06/10/18 Two Impairment Pt limited to 550' in ambulation distance Intermediate Goal (LTG) Pt to ambulate 1000' without an assistive device during 6 MWT to demonstrate a gait speed appropriate for independent community ambulation LTG Duration 06/10/18 One Impairment Pt does not have an appropriate home exercise program Short Term Goal (STG) Pt will be independent and compliant with an appropriate HEP STG Duration 05/10/19 Assessment Summary Assessment Pt tolerated tx well, cued proper L>R knee alignment during shuttle recovery, lunges (added side), added prone hang and wall squats > 90deg to HEP with positive feedback. Instructed can do some gentle scar mobiltiy (not spread scar) as seen in hand out. Pt felt pretty good, declined cold modality end of tx. Good work out. Asked patient if needs to use the SPC, will work on gait without next tx. 0/10 pain reported. Physical Therapy Plan Frequency and Duration Frequency of Treatment 2x/Week Duration of Treatment 12 weeks Plan of Care Start Date 04/09/19 Plan of Care End Date 07/02/19 Therapeutic Interventions Therapeutic Interventions Aquatic Therapy,Balance Training,Gait Training,Home Exercise Program,Joint Mobilizations,Manual Therapy, Neuromuscular Re-education, Patient/Caregiver Education, Self-Care/Home Management,Soft Tissue Mobilization, Therapeutic Activities, Therapeutic Exercises Modalities Cold Pack/Ice Massage,Electric Stimulation,Hot Packs, Ultrasound Next Visit Focus/Plan Next Note Type Treatment Note Next Visit Plan Assess response to last tx: added prone hang, wall squat > 90*, side lunge. Next tx: gait without cane. Continue per PT POC: recumbent bike, LE strengthening, gait training
--- NOTE | 2019-05-03 17:29 | PT.OTN ---
Current Diagnoses Unilateral primary osteoarthritis, unspecified knee (05/03/19) Physical Therapy Treatment Note PT-OP-A Visit Information Start: 03/11/19 17:31 Freq: Status: Active Protocol: Document 05/03/19 16:45 DCW (Rec: 05/03/19 17:29 DCW [id number]) Out-Patient Physical Therapy Visit Information Visit Information Visit Type Treatment Note Visit Start Time 16:45 Visit Stop Time 17:30 Total Visit Minutes 45 Visit Number 8 Number of QUAIL FARMER Visits 0 Evaluation Information Evaluation Date 03/11/19 PT-OP-B Current Condition Start: 03/11/19 17:31 Freq: Status: Active Protocol: Document 04/09/19 13:45 DCW (Rec: 04/09/19 15:46 DCW [id number]) Current Condition History of Current Condition Onset Date Multi-year history Current Complaints L TKA 04/06/19 History of Current Condition Pt is a 64 year old male presenting for a [facility] eval 4 weeks pre-op L TKA. Pt has long-standing knee pain with limited ROM and failure of conservative treatment. Pt notes that he has been bone- on-bone for quite a while, and the pain is now limiting his activities. Pt enjoys snowboarding, surfing, waterskiing, and mountain biking, and would like to return to these activities following his TKA. 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 Pt notes that he has learned to compensate for his limited ROM. ADDENDUM 04/09/19: Pt returned to skilled therapy 3 days s/p L TKA. PT reports that overall he is doing well, was able to leave the hospital day of surgery, and has been feeling confident performing his HEP and walking with the 4WW. Pt still reports his goals are to return to Mountain Biking and Snowboarding. PT-OP-C Subjective Start: 03/11/19 17:31 Freq: Status: Active Protocol: Document 05/03/19 16:45 DCW (Rec: 05/03/19 17:29 DCW [id number]) OP-PT Subjective Patient Comments Patient Comments Pt feels his swelling has gone down quite a bit, he has gone off his NSAIDs, still a bit stiff when I get up after sitting for a while, but I don 't have the pain. PT-OP-E Functional Tests Start: 03/11/19 17:31 Freq: Status: Active Protocol: Document 04/09/19 13:45 DCW (Rec: 04/09/19 15:46 DCW [id number]) Functional Tests 6 Minute Walk Test Distance 529 Device Used 4WW PT-OP-G Mobility & Gait Start: 03/11/19 17:31 Freq: Status: Active Protocol: Document 04/09/19 13:45 DCW (Rec: 04/09/19 15:46 DCW [id number]) OP Gait Assessment Gait Gait Assistance Required: Standby Assistance Distance (Feet) 550 Able to Maintain Weight Bearing Status Yes During Gait Assistive Devices Assistive Device 4 Wheeled Walker Gait Deviations General Gait Pattern Antalgic PT-OP-J Posture/Palpation/Skin Start: 04/09/19 15:46 Freq: Status: Active Protocol: Document 04/09/19 13:45 DCW (Rec: 04/09/19 15:59 DCW [id number]) Skin Assessment Circumference Measurement 3 Location 10 cm inferior to L patella Measurement (Centimeters) 39.9 Comments 10 inferior to R patella = 37. 8 2 Location 10 cm superior to L patella Measurement (Centimeters) 47.6 Comments 10 cm superior to R patella = 42.2 1 Location Left knee joint line Measurement (Centimeters) 44.0 Comments Right knee joint line = 40.2 cm PT-OP-K Range of Motion Start: 03/11/19 17:31 Freq: Status: Active Protocol: Document 04/09/19 13:45 DCW (Rec: 04/09/19 15:46 DCW [id number]) Knee Goniometric Range of Motion Knee Left Flexion Active (degrees) 85 Flexion Passive (degrees) 86 Extension Active (degrees) 11 Extension Passive (degrees) 11 Knee ROM Limitations Knee ROM Limitations Soft Tissue Tightness,Muscle Weakness,Pain,Swelling PT-OP-M Strength Start: 03/11/19 17:31 Freq: Status: Active Protocol: Document 04/09/19 13:45 DCW (Rec: 04/09/19 15:46 DCW [id number]) Knee Strength Knee Manual Muscle Testing Left Flexion (S2) 3- Fair- Extension (L3) 3- Fair- PT-OP-Q Treatments Start: 03/11/19 17:31 Freq: Status: Active Protocol: Document 05/03/19 16:45 DCW (Rec: 05/03/19 17:29 DCW [id number]) Cardio Equipment Recumbent Bicycle Duration (Minutes) 5 Resistance 6 Seat Position 4 Gym Equipment Shuttle Recovery Unilateral Squats Resistance 62# Shuttle Recovery Platform Stable Bilateral Squats Resistance 125# Shuttle Recovery Platform Stable Shuttle Balance Red Details WBOS, Staggered, Lateral Weight Shift Therapeutic Ball Bridging /c HS curls Exercise Details Bridging /c HS curls Ball Size/Color Red - 55 cm Body Position Supine Bridging Exercise Details Bridging Ball Size/Color Red - 55 cm Body Position Supine Therapeutic Exercises Other Exercises Lunge Other Exercise Name Lunge onto BOSU Side left Equipment Used BOSU PT-OP-T Assessment and Plan Start: 03/11/19 17:31 Freq: Status: Active Protocol: Document 05/03/19 16:45 DCW (Rec: 05/03/19 17:29 DCW [id number]) Physical Therapy Assessment Impairments Impairments Activity Tolerance,Functional Mobility,Gait,Integument,Pain, ROM,Soft Tissue Mobility, Strength,Transfers Goals Four Impairment Pt unable to participate in his hobby of Mountain Biking Cloth Drier Goal (LTG) Pt to tolerate road biking 1 mile as a step to return to Mountain Biking LTG Duration 06/10/18 Three Impairment Pt limited L knee ROM to 11-86 ? Cloth Drier Goal (LTG) Pt to demonstrate left knee ROM 0-120? LTG Duration 06/10/18 Two Impairment Pt limited to 550' in ambulation distance Prison Goal (LTG) Pt to ambulate 1000' without an assistive device during 6 MWT to demonstrate a gait speed appropriate for independent community ambulation LTG Duration 06/10/18 One Impairment Pt does not have an appropriate home exercise program Short Term Goal (STG) Pt will be independent and compliant with an appropriate HEP STG Duration 05/10/19 Assessment Summary Assessment Pt continues to progress, walking without an assistive device, no longer taking any pain pills. Physical Therapy Plan Frequency and Duration Frequency of Treatment 2x/Week Duration of Treatment 12 weeks Plan of Care Start Date 04/09/19 Plan of Care End Date 07/02/19 Therapeutic Interventions Therapeutic Interventions Aquatic Therapy,Balance Training,Gait Training,Home Exercise Program,Joint Mobilizations,Manual Therapy, Neuromuscular Re-education, Patient/Caregiver Education, Self-Care/Home Management,Soft Tissue Mobilization, Therapeutic Activities, Therapeutic Exercises Modalities Cold Pack/Ice Massage,Electric Stimulation,Hot Packs, Ultrasound Next Visit Focus/Plan Next Note Type Treatment Note Next Visit Plan Assess response to last tx: added prone hang, wall squat > 90*, side lunge. Next tx: gait without cane. Continue per PT POC: recumbent bike, LE strengthening, gait training
--- NOTE | 2019-05-06 17:28 | PT.OTN ---
Current Diagnoses Unilateral primary osteoarthritis, unspecified knee (05/06/19) Physical Therapy Treatment Note PT-OP-A Visit Information Start: 03/11/19 17:31 Freq: Status: Active Protocol: Document 05/06/19 16:45 DCW (Rec: 05/06/19 17:28 DCW [id number]) Out-Patient Physical Therapy Visit Information Visit Information Visit Type Treatment Note Visit Start Time 16:45 Visit Stop Time 17:30 Total Visit Minutes 45 Visit Number 9 Number of PHYSICAL SCIENCE TEACHER Visits 0 Evaluation Information Evaluation Date 03/11/19 PT-OP-B Current Condition Start: 03/11/19 17:31 Freq: Status: Active Protocol: Document 04/09/19 13:45 DCW (Rec: 04/09/19 15:46 DCW [id number]) Current Condition History of Current Condition Onset Date Multi-year history Current Complaints L TKA 04/06/19 History of Current Condition Pt is a 64 year old male presenting for a [facility] eval 4 weeks pre-op L TKA. Pt has long-standing knee pain with limited ROM and failure of conservative treatment. Pt notes that he has been bone- on-bone for quite a while, and the pain is now limiting his activities. Pt enjoys snowboarding, surfing, waterskiing, and mountain biking, and would like to return to these activities following his TKA. 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 Pt notes that he has learned to compensate for his limited ROM. ADDENDUM 04/09/19: Pt returned to skilled therapy 3 days s/p L TKA. PT reports that overall he is doing well, was able to leave the hospital day of surgery, and has been feeling confident performing his HEP and walking with the 4WW. Pt still reports his goals are to return to Mountain Biking and Snowboarding. PT-OP-C Subjective Start: 03/11/19 17:31 Freq: Status: Active Protocol: Document 05/06/19 16:45 DCW (Rec: 05/06/19 17:28 DCW [id number]) OP-PT Subjective Patient Comments Patient Comments Pt doing very well, no new complaints at this time. PT-OP-E Functional Tests Start: 03/11/19 17:31 Freq: Status: Active Protocol: Document 04/09/19 13:45 DCW (Rec: 04/09/19 15:46 DCW [id number]) Functional Tests 6 Minute Walk Test Distance 529 Device Used 4WW PT-OP-G Mobility & Gait Start: 03/11/19 17:31 Freq: Status: Active Protocol: Document 04/09/19 13:45 DCW (Rec: 04/09/19 15:46 DCW [id number]) OP Gait Assessment Gait Gait Assistance Required: Standby Assistance Distance (Feet) 550 Able to Maintain Weight Bearing Status Yes During Gait Assistive Devices Assistive Device 4 Wheeled Walker Gait Deviations General Gait Pattern Antalgic PT-OP-J Posture/Palpation/Skin Start: 04/09/19 15:46 Freq: Status: Active Protocol: Document 04/09/19 13:45 DCW (Rec: 04/09/19 15:59 DCW [id number]) Skin Assessment Circumference Measurement 3 Location 10 cm inferior to L patella Measurement (Centimeters) 39.9 Comments 10 inferior to R patella = 37. 8 2 Location 10 cm superior to L patella Measurement (Centimeters) 47.6 Comments 10 cm superior to R patella = 42.2 1 Location Left knee joint line Measurement (Centimeters) 44.0 Comments Right knee joint line = 40.2 cm PT-OP-K Range of Motion Start: 03/11/19 17:31 Freq: Status: Active Protocol: Document 04/09/19 13:45 DCW (Rec: 04/09/19 15:46 DCW [id number]) Knee Goniometric Range of Motion Knee Left Flexion Active (degrees) 85 Flexion Passive (degrees) 86 Extension Active (degrees) 11 Extension Passive (degrees) 11 Knee ROM Limitations Knee ROM Limitations Soft Tissue Tightness,Muscle Weakness,Pain,Swelling PT-OP-M Strength Start: 03/11/19 17:31 Freq: Status: Active Protocol: Document 04/09/19 13:45 DCW (Rec: 04/09/19 15:46 DCW [id number]) Knee Strength Knee Manual Muscle Testing Left Flexion (S2) 3- Fair- Extension (L3) 3- Fair- PT-OP-Q Treatments Start: 03/11/19 17:31 Freq: Status: Active Protocol: Document 05/06/19 16:45 DCW (Rec: 05/06/19 17:28 DCW [id number]) Cardio Equipment Recumbent Bicycle Duration (Minutes) 5 Resistance 6 Seat Position 4 Gym Equipment Shuttle Recovery Plyometric Hopping Details SL Plyometric Hopping Resistance 25# Unilateral Squats Resistance 75# Shuttle Recovery Platform Stable Bilateral Squats Resistance 137# Shuttle Recovery Platform Stable Shuttle Balance Red Details WBOS, Staggered, Lateral Weight Shift Therapeutic Ball Bridging /c HS curls Exercise Details Bridging /c HS curls Ball Size/Color Red - 55 cm Body Position Supine Therapeutic Exercises Supine Exercises Knee Flexion Supine Exercise Name Supine knee flexion Side left Comments Manual pressure Knee Extension Stretch Supine Exercise Name Extension Stretch Side left Equipment Used Towel Roll Comments Manual Pressure (AROM 3 deg) Manual Therapy Treatment Soft Tissue Mobilization scar mob Body Location L knee scar mob Body Position Supine Comments instructed keep finger together, do not spread scar ( see hand out) PT-OP-T Assessment and Plan Start: 03/11/19 17:31 Freq: Status: Active Protocol: Document 05/06/19 16:45 DCW (Rec: 05/06/19 17:28 DCW [id number]) Physical Therapy Assessment Impairments Impairments Activity Tolerance,Functional Mobility,Gait,Integument,Pain, ROM,Soft Tissue Mobility, Strength,Transfers Goals Four Impairment Pt unable to participate in his hobby of Mountain Biking Sole Splitter Goal (LTG) Pt to tolerate road biking 1 mile as a step to return to Mountain Biking LTG Duration 06/10/18 Three Impairment Pt limited L knee ROM to 11-86 ? Sole Splitter Goal (LTG) Pt to demonstrate left knee ROM 0-120? LTG Duration 06/10/18 Two Impairment Pt limited to 550' in ambulation distance Fpc Goal (LTG) Pt to ambulate 1000' without an assistive device during 6 MWT to demonstrate a gait speed appropriate for independent community ambulation LTG Duration 06/10/18 One Impairment Pt does not have an appropriate home exercise program Short Term Goal (STG) Pt will be independent and compliant with an appropriate HEP STG Duration 05/10/19 Assessment Summary Assessment Pt incision doing well, mild scabbing remains along inferior aspect. Pt ROM continues to improve. Physical Therapy Plan Frequency and Duration Frequency of Treatment 2x/Week Duration of Treatment 12 weeks Plan of Care Start Date 04/09/19 Plan of Care End Date 07/02/19 Therapeutic Interventions Therapeutic Interventions Aquatic Therapy,Balance Training,Gait Training,Home Exercise Program,Joint Mobilizations,Manual Therapy, Neuromuscular Re-education, Patient/Caregiver Education, Self-Care/Home Management,Soft Tissue Mobilization, Therapeutic Activities, Therapeutic Exercises Modalities Cold Pack/Ice Massage,Electric Stimulation,Hot Packs, Ultrasound Next Visit Focus/Plan Next Note Type Treatment Note Next Visit Plan Assess response to last tx: added prone hang, wall squat > 90*, side lunge. Next tx: gait without cane. Continue per PT POC: recumbent bike, LE strengthening, gait training
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
== END 2019-05-11 10:01 ==
LOC: PHYS 16:45
PROVIDERS: PCP Family Medicine; Visit Provider Orthopaedic Surgery
DX: M17.10 Unilateral primary osteoarthritis, unspecified knee (principal)
CPT/HCPCS: 97110; 97112; 97140; 97161; 97164; 97535

== ENCOUNTER → 2019-11-04 16:02 | Outpatient (CLI) | payer OTHER, SELFPAY ==
[2019-11-08 00:41] LABS: COVID19 Sendout Not Detected (Not Detected)
== END ==
PROVIDERS: PCP Family Medicine; Visit Provider Physician Assistant
DX: R50.9 Fever, unspecified (principal)
CPT/HCPCS: 87635

== ENCOUNTER 2019-11-13 10:41 | Observation (INO) | payer OTHER, SELFPAY ==
[2019-11-13] VITALS (17 sets, daily range): BP systolic 115–157; BP diastolic 67–90; PULSE 78–98; RESP 17–23; TEMP 37–38.8; O2SAT 91–96; BMI 27.3; BMI 27.1
--- NOTE | 2019-11-13 11:05 | ED.SOB ---
HPI - SOB/Dyspnea General Chief Complaint: Shortness of Breath/Dyspnea Stated Complaint: O2 LOW, HIGH PULSE, INTERMITTENT FEVER Time Seen by Provider: 11/13/19 11:04 Source: patient Mode of arrival: Family Vehicle Limitations: no limitations History of Present Illness HPI Narrative: Patient is a 64-year-old male presenting with fever ongoing for the last it has been as high as 104. He denies any worsening or productive cough he says he has a chronic cough from allergies he has no shortness of breath. He does have body aches and headache at times. However he states that headache overall is improving and it feels like frontal pressure. He denies any neck pain or real vision changes he is able to read street signs and things up close without difficulty. He was seen at the walk-in clinic on 11/04/2019 for fever and was tested for COVID-19, which was negative. He continues to have fever without any other symptoms. He returned to the walk-in clinic today who said his oxygen was 89% and he was sent to the ED for further evaluation here he has pulse ox of 96% without any sign of respiratory distress. Related Data Home Medications Medication Instructions Recorded Confirmed aspirin 81 mg tablet,delayed 81 mg PO DAILY 06/11/18 11/13/19 release losartan 50 mg tablet 25 mg PO BID 06/11/18 11/13/19 Allergies Allergy/AdvReac Type Severity Reaction Status Date / Time No Known Drug Allergies Allergy Verified 11/13/19 10:57 Review of Systems Review of Systems ROS Unobtainable: All systems reviewed & are unremarkable except as noted in HPI and below Constitutional Constitutional: Reports body ache(s), Reports chills, Reports fever(s) and Reports headache(s) Eyes Eyes: Denies change in vision, Denies eye discharge, Denies irritation and Denies loss of vision ENT Ears, Nose, Mouth, and Throat: Reports headache(s) Cardiovascular Cardiovascular: Denies chest pain, Denies irregular heart rhythm, Denies lightheadedness, Denies palpitations, Denies dyspnea, Denies dyspnea on exertion and Denies orthopnea Respiratory Respiratory: Denies cough, Denies dyspnea, Denies dyspnea on exertion and Denies wheezing Gastrointestinal Gastrointestinal: Denies abdominal pain, Denies change in bowel habits, Denies diarrhea, Denies nausea and Denies vomiting Musculoskeletal Musculoskeletal: Reports myalgias Integumentary/Breasts Skin/Breast: Denies pruritus, Denies erythema, Denies rash and Denies wounds Neurologic Neurologic: Reports headache(s) and Denies loss of vision Endocrine Endocrine: Denies palpitations Allergic/Immunologic Allergic/Immunologic: Denies wheezing Patient History Medical History (Updated 11/13/19 @ 13:13 by Krissy Naranjo DO) Bilateral primary osteoarthritis of knee (Acute) Hypertension (Acute) Surgical History (Updated 11/13/19 @ 15:13 by Te Manley MD) Status post left knee replacement (Acute) Social History household members: spouse Smoking Status: Former smoker alcohol intake: current Smoking Status: Former smoker alcohol intake frequency: 0-2 drinks per day Substance Use Type: does not use Exam Initial Vital Signs Initial Vital Signs: Vital Signs Temperature 98.7 F 11/13/19 10:53 Pulse Rate 98 H 11/13/19 10:53 Respiratory Rate 18 11/13/19 10:53 Blood Pressure 128/76 11/13/19 10:53 Pulse Oximetry 95 11/13/19 10:53 GENERAL: Well-appearing, well-nourished and in no acute distress. HEENT: Head atraumatic,EOMI, pupils reactive, face symmetric, moist mucous membranes, negative Kernig and Brudzinski sign, neck is supple CARDIOVASCULAR: Regular rate and rhythm without murmurs, rubs or gallops. RESPIRATORY: Crackles left side. Speaks in full sentences without difficulty ABDOMEN: Soft, nontender. Normoactive bowel sounds all 4 quadrants. No guarding or rebound. EXTREMITIES: Normal range of motion, no clubbing or edema. Neurovascularly intact NEUROLOGICAL: Alert and oriented x4.Normal gait and speech. Cranial nerves II through XII grossly intact. SKIN: Warm, dry, no laceration, no petechiae, no rashes or lesions. Scores CURB-65 Confusion: Yes BUN >19mg/dL (>7mmol/L): Yes Respiratory rate greater or equal to 30: No SBP <90mmHg or DBP less or equal to 60mmHg: No Age 65 or Older: No CURB-65 Total: 2 Score 0-1 Outpatient care, Score 2 Inpt vs. Obs, Score 3 or over Inpt admit with ICU for score of 4-5 Course Orders Ordered: ED Orders 11/13/19 11:19 XR chest 1V Stat 11/13/19 11:22 C-Reactive Protein Quant Stat Complete Blood Count AUTO DIFF Stat Comprehensive Metabolic Panel Stat Ferritin Stat Lactate (Lactic Acid) Stat Lactate Dehydrogenase Stat NT-proBNP (BNP-Adult 18+) Stat Procalcitonin Stat Troponin & CK Cardiac Panel Stat 11/13/19 11:35 Blood Culture Stat 11/13/19 12:41 D Dimer Stat Acetaminophen (Tylenol) 650 mg PO Q6HR PRN PRN Reason: Fever/Mild Pain (1-3) Aspirin (Aspirin Ec) 81 mg PO DAILY ELIZABETH Enoxaparin Sodium (Lovenox) 40 mg SUBCUT DAILY ELIZABETH Lactated Ringer's (Lactated Ringers) 1,000 mls @ 1,000 mls/hr IV BOLUS ONE Stop: 11/13/19 16:04 Azithromycin 500 mg/ Dextrose 250 mls @ 250 mls/hr IV Q24H ELIZABETH Ceftriaxone Sodium/Dextrose (Rocephin) 2 gm in 50 mls @ 100 mls/hr IV Q24H ELIZABETH Losartan Potassium (Cozaar) 25 mg PO BID ELIZABETH Magnesium Hydroxide (Milk Of Magnesia) 30 ml PO DAILY PRN PRN Reason: Constipation Ondansetron HCl (Zofran) 4 mg IV Q8HR PRN PRN Reason: Nausea And Vomiting Ondansetron HCl (Zofran) 4 mg IV Q4HR PRN PRN Reason: Nausea And Vomiting Discontinued Medications Acetaminophen (Tylenol) 975 mg PO NOW ONE Stop: 11/13/19 12:35 Last Admin: 11/13/19 13:03 Dose: 975 mg Documented by: TOLU Furosemide (Lasix) 20 mg IV NOW ONE Stop: 11/13/19 12:46 Last Admin: 11/13/19 13:03 Dose: 20 mg Documented by: TOLU Ceftriaxone Sodium/Dextrose (Rocephin) 2 gm in 50 mls @ 100 mls/hr IV NOW ONE Stop: 11/13/19 13:11 Last Infusion: 11/13/19 13:35 Dose: 0 mls/hr Documented by: Admin: 11/13/19 13:03 Dose: 100 mls/hr Documented by: TOLU Azithromycin 500 mg/ Dextrose 250 mls @ 250 mls/hr IV NOW ONE Stop: 11/13/19 12:51 Last Infusion: 11/13/19 14:00 Dose: 0 mls/hr Documented by: Admin: 11/13/19 13:35 Dose: 250 mls/hr Documented by: TOLU Potassium Chloride (Klor-Con M20) 40 meq PO NOW ONE Stop: 11/13/19 15:06 Vital Signs Vital signs: Vital Signs - 8 hr 11/13/19 10:53 11/13/19 11:21 11/13/19 11:25 Temperature 98.7 F Pulse Rate 98 H 95 H 98 H Respiratory Rate 18 Blood Pressure 128/76 129/75 Pulse Oximetry 95 96 95 11/13/19 11:30 11/13/19 12:00 11/13/19 12:30 Temperature 100.4 F H Pulse Rate 94 H 94 H 90 Respiratory Rate Blood Pressure 131/77 115/72 117/76 Pulse Oximetry 95 93 94 11/13/19 13:00 Temperature Pulse Rate 87 Respiratory Rate 23 Blood Pressure 128/80 Pulse Oximetry 94 MDM - SOB/Dyspnea Lab Data Attestation: I reviewed the patient's lab results. Result diagrams: 11/13/19 11:22 11/13/19 11:22 Labs: Lab Results 11/13/19 11/13/19 11/13/19 Range/Units 11:22 11:22 11:22 WBC 18.2 H (4.5-11.0) X10^3/uL RBC 4.21 L (4.5-5.9) X10^6/uL Hgb 13.1 L (13.5-17.5) g/dL Hct 38.8 L (41-53) % MCV 92.1 (80-100) fL MCH 31.0 (26-34) PG MCHC 33.7 (30-36) % RDW 13.8 (11.6-14.8) % Plt Count 468 H (150-400) X10^3/uL Neut % (Auto) 92.0 H (50-75) % Lymph % (Auto) 3.6 L (25-40) % [place] % (Auto) 3.6 (3-14) % Eos % (Auto) 0.6 L (2-4) % Baso % (Auto) 0.2 (0-2) % Neut # (Auto) 30090 H (1454-2050) /uL Lymph # (Auto) 700 L (2183-9389) /uL [place] # (Auto) 600 (0-900) /uL Eos # (Auto) 100 (0-450) /uL Baso # (Auto) 0 (0-100) /uL D-Dimer (<230) ng/mL Sodium 131 L (137-145) mmol/L Potassium 3.1 L (3.4-5.1) mmol/L Chloride 90 L (98-107) mmol/L Carbon Dioxide 29 (22-32) mmol/L BUN 31 H (9-20) mg/dL Creatinine 1.21 (0.66-1.25) mg/dL Estimated GFR > 60.0 (>60) mL/min BUN/Creatinine Ratio 25.6 H (6-22) Glucose 120 H (80-110) mg/dL Lactate (0.7-2.1) mmol/L Calcium 9.2 (8.4-10.2) mg/dL Ferritin 963 H (18-464) ng/mL Total Bilirubin 0.5 (0.2-1.3) mg/dL AST 115 H (17-59) IU/L ALT 144 H (<50) IU/L Alkaline Phosphatase 170 H (38-126) U/L Lactate Dehydrogenase 870 H (313-618) U/L Total Creatine Kinase 155 (55-170) U/L CK-MB (CK-2) 2.23 (<2.37) ng/mL CK-MB (CK-2) Rel Index 1.4 L (1.5-5.0) % Troponin I < 0.012 (0.01-0.034) ng/mL C-Reactive Protein 37.7 H (<1.0) mg/dL NT-Pro-B Natriuret Pep 599 H (<125) pg/mL Total Protein 7.5 (6.3-8.2) g/dL Albumin 3.5 (3.5-5.0) g/dL Globulin 4.0 (1.7-4.1) g/dL Albumin/Globulin Ratio 0.9 L (1.0-2.8) Procalcitonin 3.97 H (<0.5) ng/mL COVID-19 PCR (Negative) 11/13/19 11/13/19 11/13/19 Range/Units 11:22 12:41 13:00 WBC (4.5-11.0) X10^3/uL RBC (4.5-5.9) X10^6/uL Hgb (13.5-17.5) g/dL Hct (41-53) % MCV (80-100) fL MCH (26-34) PG MCHC (30-36) % RDW (11.6-14.8) % Plt Count (150-400) X10^3/uL Neut % (Auto) (50-75) % Lymph % (Auto) (25-40) % [place] % (Auto) (3-14) % Eos % (Auto) (2-4) % Baso % (Auto) (0-2) % Neut # (Auto) (8701-8099) /uL Lymph # (Auto) (5036-0433) /uL [place] # (Auto) (0-900) /uL Eos # (Auto) (0-450) /uL Baso # (Auto) (0-100) /uL D-Dimer 876 H (<230) ng/mL Sodium (137-145) mmol/L Potassium (3.4-5.1) mmol/L Chloride (98-107) mmol/L Carbon Dioxide (22-32) mmol/L BUN (9-20) mg/dL Creatinine (0.66-1.25) mg/dL Estimated GFR (>60) mL/min BUN/Creatinine Ratio (6-22) Glucose (80-110) mg/dL Lactate 1.5 (0.7-2.1) mmol/L Calcium (8.4-10.2) mg/dL Ferritin (18-464) ng/mL Total Bilirubin (0.2-1.3) mg/dL AST (17-59) IU/L ALT (<50) IU/L Alkaline Phosphatase (38-126) U/L Lactate Dehydrogenase (313-618) U/L Total Creatine Kinase (55-170) U/L CK-MB (CK-2) (<2.37) ng/mL CK-MB (CK-2) Rel Index (1.5-5.0) % Troponin I (0.01-0.034) ng/mL C-Reactive Protein (<1.0) mg/dL NT-Pro-B Natriuret Pep (<125) pg/mL Total Protein (6.3-8.2) g/dL Albumin (3.5-5.0) g/dL Globulin (1.7-4.1) g/dL Albumin/Globulin Ratio (1.0-2.8) Procalcitonin (<0.5) ng/mL COVID-19 PCR Negative (Negative) Imaging Data Chest x-ray: Radiologist's Impression: PROCEDURE: XR CHEST 1V INDICATIONS: flu-like symptoms TECHNIQUE: One view of the chest was acquired. COMPARISON: None. FINDINGS: Surgical changes and devices: None. Lungs and pleura: Low lung volumes are noted. This causes a crowded appearance to the lung markings and limits evaluation. Generalized left lung infiltrate is seen, which is most prominent within the left midlung. On this semiupright portable chest examination, no large pneumothorax or large pleural effusions are seen. Mediastinum: Mediastinal contours appear normal. Heart size is normal. Bones and chest wall: No suspicious bony lesions. Overlying soft tissues appear unremarkable. IMPRESSION: Generalized left lung infiltrate, with focal consolidation within the left mid lung. Please consider short-term followup versus chest CT with contrast for further evaluation. Dictated by: Alex Chisholm M.D. on 11/13/2019 at 11:14 Approved by: Alex Chisholm M.D. on 11/13/2019 at 11:15 [facility] Narrative Medical decision making narrative: Patient actually appears okay he is speaking without any difficulty. However labs do show abnormalities including leukocytosis of 18 and elevated pro calcitonin 3.9 and has low-grade fever in the emergency department along with consolidation on x-ray, all suggesting bacterial pneumonia. He is covered for community-acquired pneumonia with Rocephin and azithromycin. However patient also has elevation of liver enzymes ferritin D-dimer and BNP which do suggest possible COVID-19, which is pending. Patient had ambulation trial and oxygen levels did briefly go down to about 90% and quickly archie upon rest. Patient does not appear septic he has normal blood pressure and a negative lactic acid. However at this time he does need antibiotics for his pneumonia which is been ongoing for probably a week. His oxygen level does decrease with exertion. He is given 1 dose of Lasix as well for likely mild pulmonary edema an elevated BNP. Dr. Manley, updated patient's symptoms and test results agrees with admission Discharge Plan Departure Patient Disposition: Admitted As Inpatient Clinical Impression: Pneumonia Qualifiers: Pneumonia type: due to unspecified organism Laterality: left Lung location: unspecified part of lung Qualified Code(s): J18.9 - Pneumonia, unspecified organism Discharge Date/Time: 11/13/19 14:10 Referrals: Danyell Fagan MD [Primary Care Provider] - Admit Date/Time: 11/13/19 13:21 Admit Provider: Te Manley
--- NOTE | 2019-11-13 11:19 | DI.RAD.S_ITS ---
PROCEDURE: XR CHEST 1V INDICATIONS: flu-like symptoms TECHNIQUE: One view of the chest was acquired. COMPARISON: None. FINDINGS: Surgical changes and devices: None. Lungs and pleura: Low lung volumes are noted. This causes a crowded appearance to the lung markings and limits evaluation. Generalized left lung infiltrate is seen, which is most prominent within the left midlung. On this semiupright portable chest examination, no large pneumothorax or large pleural effusions are seen. Mediastinum: Mediastinal contours appear normal. Heart size is normal. Bones and chest wall: No suspicious bony lesions. Overlying soft tissues appear unremarkable. IMPRESSION: Generalized left lung infiltrate, with focal consolidation within the left mid lung. Please consider short-term followup versus chest CT with contrast for further evaluation. Dictated by: Alex Chisholm M.D. on 11/13/2019 at 11:14 Approved by: Alex Chisholm M.D. on 11/13/2019 at 11:15
[2019-11-13 12:00] LABS: Add Manual Diff / Slide Review NO; Basophils Absolute Auto 0 /uL (0-100); Basophils Percent Auto 0.2 % (0-2); Eosinophils Absolute Auto 100 /uL (0-450); Eosinophils Percent Auto 0.6 % (2-4); Hematocrit 38.8 % (41-53); Hemoglobin 13.1 g/dL (13.5-17.5); Lymphocytes Absolute Auto 700 /uL (1100-4500); Lymphocytes Percent Auto 3.6 % (25-40); Mean Corpuscular HGB Conc 33.7 % (30-36); Mean Corpuscular Volume 92.1 fL (80-100); Monocytes Absolute Auto 600 /uL (0-900); Monocytes Percent Auto 3.6 % (3-14); Neutrophils Absolute Auto 16700 /uL (1500-7000); Platelet Count 468 X10^3/uL (150-400); Red Blood Cell Count 4.21 X10^6/uL (4.5-5.9); Red Cell Distribution Width 13.8 % (11.6-14.8); White Blood Cell Count 18.2 X10^3/uL (4.5-11.0)
[2019-11-13 12:02] LABS: Lactate (Lactic Acid) 1.5 mmol/L (0.7-2.1)
[2019-11-13 12:10] LABS: Alanine Aminotransferase 144 IU/L (<50); Albumin 3.5 g/dL (3.5-5.0); Albumin Globulin Ratio 0.9 (1.0-2.8); Alkaline Phosphatase 170 U/L (38-126); Aspartate Aminotransferase 115 IU/L (17-59); BUN Creatinine Ratio 25.6 (6-22); Bilirubin Total 0.5 mg/dL (0.2-1.3); Blood Urea Nitrogen 31 mg/dL (9-20); Calcium 9.2 mg/dL (8.4-10.2); Carbon Dioxide 29 mmol/L (22-32); Chloride 90 mmol/L (98-107); Creatine Kinase 155 U/L (55-170); Estimated Glomerular Filt Rate > 60.0 mL/min (>60); Glucose 120 mg/dL (80-110); HEMOLYSIS < 15 (0-50); Lactate Dehydrogenase 870 U/L (313-618); Potassium 3.1 mmol/L (3.4-5.1); Sodium 131 mmol/L (137-145); Total Protein 7.5 g/dL (6.3-8.2)
[2019-11-13 12:20] LABS: NT-proBNP (BNP-Adult 18+) 599 pg/mL (<125); Troponin I < 0.012 ng/mL (0.01-0.034)
[2019-11-13 12:24] LABS: CKMB % Relative Index 1.4 % (1.5-5.0); Creatine Kinase MB 2.23 ng/mL (<2.37)
[2019-11-13 12:33] LABS: Procalcitonin 3.97 ng/mL (<0.5)
[2019-11-13 12:43] LABS: Ferritin 963 ng/mL (18-464)
--- NOTE | 2019-11-13 12:44 | PC.NURSE ---
Got pt up and had him ambulate around the room and his O2 sat dropped to 90%. informed. Once pt was back in bed and resting his RA O2 sat archie to 95%. Pt did become winded and slightly off balance.
[2019-11-13 12:45] LABS: C-Reactive Protein Quant 37.7 mg/dL (<1.0)
[2019-11-13 12:57] LABS: D Dimer 876 ng/mL (<230)
[2019-11-13] MEDS: FUROSEMIDE 40 MG/4 ML VIAL 20 MG IV (13:03)
[2019-11-13] MEDS: ACETAMINOPHEN 325 MG TABLET 975 MG PO (13:03)
[2019-11-13] MEDS: CEFTRIAXONE 2 GM/50 ML FROZ.PIGGY IV (13:03)
[2019-11-13] MEDS: AZITHROMYCIN 500 MG in DEXTROSE 5% IN WATER 250 ML IV (13:35)
[2019-11-13 14:48] LABS: COVID19 -Nasal RAPID Negative (Negative)
--- NOTE | 2019-11-13 14:53 | PC.NURSE ---
Admit Note Patient arrived to room 219 at 1420 via wheelchair, steady on feet when transferring to bed. Initially placed in droplet/contact precautions pending COVID-19 results which are now back negative. Denies shortness of breath at rest. SpO2 92-93% RA. Does report shortness of breath with activity. Lung sounds decreased bilaterally. Oriented to room and to call light/bed/tv controls. Call light within reach. Belongings at bedside; glasses, cell phone, clothing, and wallet. Declines to lock up valuables in safe at this time and reports that he will send it home with his when she arrives.
--- NOTE | 2019-11-13 15:12 | P.HP_ITS ---
History of Present Illness History of Present Illness Date Patient Seen: 11/13/19 Time Patient Seen: 15:00 Date of Onset of Symptoms: 11/04/19 Chief complaint: O2 LOW, HIGH PULSE, INTERMITTENT FEVER Narrative: Patient is a 64-year-old male with history of awake, hypertension sent to the emergency department from walk-in clinic due to persistent fevers and respiratory symptoms. He initially developed fever on November 03 and seen same day at walk-in clinic where he tested negative for COVID-19. Since then his fevers have persisted with temps up to 104 along with sweats and shaking chills. He states he always has a little bit of phlegm due to allergies but more recently with a persistent cough productive of yellow phlegm. He has also had headaches, myalgias, and a few episodes of vomiting and loose stools with loss of appetite. Today's evaluation in the ED included blood work with WBC 18.2 with left shift, procalcitonin 3.97, CRP 37, LDH 870, lactate of 1.5 which is normal. Chest x- ray one-view showed infiltrate throughout left lung most concentrated in the middle lung consistent with pneumonia. There is no effusion. Repeat COVID-19 testing is negative. Patient had O2 sat 89% at walking clinic but 94-96% at ER which dropped to 90% with walking. He was started on Rocephin and Zithromax and referred for admission for treatment of pneumonia. Patient is mother of liver disease and father of unknown cancer. Patient quit smoking decades ago. Patient History Medical History (Updated 11/13/19 @ 13:13 by Krissy Naranjo DO) Bilateral primary osteoarthritis of knee (Acute) Hypertension (Acute) Surgical History (Updated 11/13/19 @ 15:13 by Te Manley MD) Status post left knee replacement (Acute) Family & Social History Social History: household members spouse Safety & Behavioral: Feels Safe in Current Yes Environment Been Physically Hurt or No Threatened By a Person Tobacco & Substance use: Smoking Status Former smoker alcohol intake current alcohol intake frequency 0-2 drinks per day Substance Use Type does not use Meds Home Medications and Allergies Home Medications Medication Instructions Recorded Confirmed Type aspirin 81 mg tablet,delayed 81 mg PO DAILY 06/11/18 11/13/19 History release losartan 50 mg tablet 25 mg PO BID 06/11/18 11/13/19 History Allergies Allergy/AdvReac Type Severity Reaction Status Date / Time No Known Drug Allergies Allergy Verified 11/13/19 10:57 Review of Systems Review of Systems ROS: Yes All systems reviewed with the patient and are negative except as otherwise documented Exam Vital Signs (past 8 hours): - 11/13/19 10:53 11/13/19 11:21 11/13/19 11:25 Temperature 98.7 F Pulse Rate 98 H 95 H 98 H Respiratory Rate 18 Blood Pressure 128/76 129/75 Pulse Oximetry 95 96 95 11/13/19 11:30 11/13/19 12:00 11/13/19 12:30 Temperature 100.4 F H Pulse Rate 94 H 94 H 90 Respiratory Rate Blood Pressure 131/77 115/72 117/76 Pulse Oximetry 95 93 94 11/13/19 13:00 11/13/19 13:58 11/13/19 14:01 Temperature 100 F H 100 F H Pulse Rate 87 Respiratory Rate 23 Blood Pressure 128/80 Pulse Oximetry 94 Oxygen Delivery Method Room Air Narrative Exam Narrative: General: Alert very pleasant male HEENT: Pupils equal and reactive Neck: Supple without lymphadenopathy Lungs: Breathing nonlabored, scattered crackles left lung, no wheeze Heart: Normal S1 and S2, regular rate and rhythm, no murmur Abdomen: Nondistended, soft, nontender, no HSM Extremities: Warm, dry, no edema Neurological: Sensorium intact, speech normal, affect normal, no focal weakness Skin: No rash or petechiae Objective Labs Result Diagrams: 11/13/19 11:22 11/13/19 11:22 Labs: Laboratory Results - last 24 hr 11/13/19 11/13/19 11/13/19 11:22 11:22 11:22 WBC 18.2 H RBC 4.21 L Hgb 13.1 L Hct 38.8 L MCV 92.1 MCH 31.0 MCHC 33.7 RDW 13.8 Plt Count 468 H Neut % (Auto) 92.0 H Lymph % (Auto) 3.6 L [place] % (Auto) 3.6 Eos % (Auto) 0.6 L Baso % (Auto) 0.2 Neut # (Auto) 23897 H Lymph # (Auto) 700 L [place] # (Auto) 600 Eos # (Auto) 100 Baso # (Auto) 0 D-Dimer Sodium 131 L Potassium 3.1 L Chloride 90 L Carbon Dioxide 29 BUN 31 H Creatinine 1.21 Estimated GFR > 60.0 BUN/Creatinine Ratio 25.6 H Glucose 120 H Lactate Calcium 9.2 Ferritin 963 H Total Bilirubin 0.5 AST 115 H ALT 144 H Alkaline Phosphatase 170 H Lactate Dehydrogenase 870 H Total Creatine Kinase 155 CK-MB (CK-2) 2.23 CK-MB (CK-2) Rel Index 1.4 L Troponin I < 0.012 C-Reactive Protein 37.7 H NT-Pro-B Natriuret Pep 599 H Total Protein 7.5 Albumin 3.5 Globulin 4.0 Albumin/Globulin Ratio 0.9 L Procalcitonin 3.97 H COVID-19 PCR 11/13/19 11/13/19 11/13/19 11:22 12:41 13:00 WBC RBC Hgb Hct MCV MCH MCHC RDW Plt Count Neut % (Auto) Lymph % (Auto) [place] % (Auto) Eos % (Auto) Baso % (Auto) Neut # (Auto) Lymph # (Auto) [place] # (Auto) Eos # (Auto) Baso # (Auto) D-Dimer 876 H Sodium Potassium Chloride Carbon Dioxide BUN Creatinine Estimated GFR BUN/Creatinine Ratio Glucose Lactate 1.5 Calcium Ferritin Total Bilirubin AST ALT Alkaline Phosphatase Lactate Dehydrogenase Total Creatine Kinase CK-MB (CK-2) CK-MB (CK-2) Rel Index Troponin I C-Reactive Protein NT-Pro-B Natriuret Pep Total Protein Albumin Globulin Albumin/Globulin Ratio Procalcitonin COVID-19 PCR Negative Assessment & Plan Assessment & Plan narrative: This is a 64-year-old male with hypertension presenting with over 1 week of fever and respiratory symptoms with left sided pneumonia on x-ray. 1. Bacterial pneumonia, left lung, present on admission -WBC 18 K, elevated procalcitonin, negative COVID testing consistent with bacterial pneumonia -O2 sat 94-96 on room air but dropped to 90% with walking -Rocephin 1 g IV daily, Zithromax 500 mg IV daily -Tylenol as needed fever, Zofran as needed nausea/vomiting -LR x1 L -follow-up on blood cultures -sputum culture -follow temp, WBC, procalcitonin 2. Acute transaminitis, present on admission -likely secondary to pneumonia -recheck on labs in a.m. 3. Acute hypokalemia, present on admission, active -secondary to previous vomiting -KCL 40 mEq p.o. x1 -recheck on labs in a.m. 4. Essential hypertension, chronic -normotensive, continue losartan 25 mg b.i.d. per home routine DVT prophylaxis: Lovenox Surrogate decision maker: Spouse Code status: Full code Quality VTE Deep Vein Thrombosis/Pulmonary Embolism Present on Admission: No
[2019-11-13] MEDS: POTASSIUM CHLORIDE 20 MEQ TAB 40 MEQ PO (15:54)
[2019-11-13] MEDS: LACTATED RINGERS 1,000 ML 1000 ML IV (15:55)
[2019-11-13] MEDS: ACETAMINOPHEN 325 MG TABLET 650 MG PO (21:08)
[2019-11-13] MEDS: LOSARTAN 25 MG TABLET PO (21:08)
--- NOTE | 2019-11-13 22:46 | PC.NURSE ---
febrile 101.8, administered Tylenol, temp down to 100.2. will continue to monitor. blankets are off.
[2019-11-14] VITALS (12 sets, daily range): BP systolic 109–128; BP diastolic 59–88; PULSE 74–96; RESP 16–19; TEMP 36.2–38.4; O2SAT 92–95
[2019-11-14] MEDS: ACETAMINOPHEN 325 MG TABLET 650 MG PO ×3 (03:59→20:47)
[2019-11-14 05:43] LABS: Add Manual Diff / Slide Review NO; Basophils Absolute Auto 0 /uL (0-100); Basophils Percent Auto 0.2 % (0-2); Eosinophils Absolute Auto 100 /uL (0-450); Eosinophils Percent Auto 0.9 % (2-4); Hematocrit 35.3 % (41-53); Hemoglobin 11.8 g/dL (13.5-17.5); Lymphocytes Absolute Auto 700 /uL (1100-4500); Lymphocytes Percent Auto 4.7 % (25-40); Mean Corpuscular HGB Conc 33.5 % (30-36); Mean Corpuscular Hemoglobin 30.9 PG (26-34); Mean Corpuscular Volume 92.2 fL (80-100); Monocytes Absolute Auto 700 /uL (0-900); Monocytes Percent Auto 4.8 % (3-14); Neutrophils Absolute Auto 13300 /uL (1500-7000); Neutrophils Percent Auto 89.4 % (50-75); Platelet Count 487 X10^3/uL (150-400); Red Blood Cell Count 3.83 X10^6/uL (4.5-5.9); Red Cell Distribution Width 13.8 % (11.6-14.8); White Blood Cell Count 14.9 X10^3/uL (4.5-11.0)
[2019-11-14 05:52] LABS: Alanine Aminotransferase 141 IU/L (<50); Albumin 3.3 g/dL (3.5-5.0); Albumin Globulin Ratio 0.9 (1.0-2.8); Alkaline Phosphatase 220 U/L (38-126); Aspartate Aminotransferase 121 IU/L (17-59); BUN Creatinine Ratio 22.8 (6-22); Bilirubin Total 0.5 mg/dL (0.2-1.3); Blood Urea Nitrogen 21 mg/dL (9-20); Calcium 8.9 mg/dL (8.4-10.2); Carbon Dioxide 28 mmol/L (22-32); Chloride 93 mmol/L (98-107); Estimated Glomerular Filt Rate > 60.0 mL/min (>60); Globulin 3.5 g/dL (1.7-4.1); Glucose 108 mg/dL (80-110); HEMOLYSIS < 15 (0-50); Potassium 3.9 mmol/L (3.4-5.1); Sodium 131 mmol/L (137-145); Total Protein 6.8 g/dL (6.3-8.2)
[2019-11-14 06:07] LABS: Procalcitonin 2.24 ng/mL (<0.5)
--- NOTE | 2019-11-14 08:37 | DI.US.S_ITS ---
PROCEDURE: US ABDOMEN LIMITED INDICATIONS: ABNORMAL LFTS TECHNIQUE: Real-time focused scanning was performed of the abdomen, with image documentation. COMPARISON: [facility], CR, XR CHEST 1V, 11/13/2019, 11:41. FINDINGS: The liver demonstrates normal size. The liver demonstrates generalized increased echogenicity. This decreases ultrasound sensitivity for detection of hepatic masses. The gallbladder is contracted at the time of the study. The gallbladder wall is mildly thickened at 4.3 mm, which is likely artifactual, secondary to its contracted state. No findings of gallstones or sludge are seen. No specific pericholecystic fluid is seen. The sonographic Ortega sign is negative. There is no biliary dilatation, the common bile duct measures 5 mm. No significant pancreatic abnormality is seen on these images. IMPRESSION: Contracted gallbladder, without serge findings of cholecystitis. No biliary dilatation. The liver demonstrates increased echogenicity. This finding is nonspecific, yet it is most commonly attributed to fatty infiltration. Dictated by: Alex Chisholm M.D. on 11/14/2019 at 11:35 Approved by: Alex Chisholm M.D. on 11/14/2019 at 11:37
--- NOTE | 2019-11-14 08:51 | CM.DANOTE ---
DCP: Case received, EMR reviewed and met with patient. Introduced self and role. Was able to meet with patient and obtain information regarding his baseline activity level prior to hospitalization. DCP assessment completed with information currently available. Patient is a 64 year old male who admitted yesterday afternoon to the care of the hospitalist team. PCP: Dr. Fagan. Payer: confirmed: [employer]. Patient came to the hospital via private vehicle secondary to having fever, as well as weakness and shortness of breath. He was sent over from the walk in clinic. Both of his COVID tests came back negative. He holds current diagnosis of bacterial pneumonia. Met with patient in his room. He had already seen hospitalist, and he was sitting on the edge of his bed having breakfast. Patient is independent, is employed at [employer] in [place], and his primary care provider is over at [facility]. He resides in [place] with his spouse, Rama. He was not on oxygen when he was sitting up in his room. P: DCP to continue to follow. Patient should be able to go home when he is medically stable. Katina Cano RN/Plaster Patternmaker
[2019-11-14] MEDS: ASPIRIN EC 81 MG TABLET PO (09:06)
[2019-11-14] MEDS: ENOXAPARIN 40 MG/0.4 ML SYRINGE SUBCUT (09:06)
[2019-11-14] MEDS: LOSARTAN 25 MG TABLET PO ×2 (09:10→20:39)
--- NOTE | 2019-11-14 10:54 | PM.PN.1 ---
Subjective Subjective Date Patient Seen: 11/14/19 Interval history: This is a 64-year-old male with hypertension presenting with over 1 week of fever and respiratory symptoms with left sided pneumonia on x-ray. Patient reports improvement in cough and appetite since on IV antibiotics. However, he was still having fevers overnight. O2 sat 92% room air this morning. Exam Vital Signs (past 8 hours): - 11/14/19 03:48 11/14/19 03:59 11/14/19 05:00 Temperature 101.2 F H 101.2 F H Pulse Rate 95 H Respiratory Rate 18 Blood Pressure 122/70 Pulse Oximetry 92 92 11/14/19 05:28 11/14/19 08:00 Temperature 97.4 F L 97.2 F L Pulse Rate 74 Respiratory Rate 18 Blood Pressure 121/72 Pulse Oximetry 92 Oxygen Delivery Method Room Air Oxygen Flow Rate 0 Narrative Exam Narrative: General: Alert pleasant male in no acute distress Lungs: Clear to auscultation Heart: Regular rhythm Extremities: No edema Objective Labs Result Diagrams: 11/14/19 05:20 11/14/19 05:20 Labs: Laboratory Results - last 24 hr 11/13/19 11/13/19 11/13/19 11:22 11:22 11:22 WBC 18.2 H RBC 4.21 L Hgb 13.1 L Hct 38.8 L MCV 92.1 MCH 31.0 MCHC 33.7 RDW 13.8 Plt Count 468 H Neut % (Auto) 92.0 H Lymph % (Auto) 3.6 L [place] % (Auto) 3.6 Eos % (Auto) 0.6 L Baso % (Auto) 0.2 Neut # (Auto) 10740 H Lymph # (Auto) 700 L [place] # (Auto) 600 Eos # (Auto) 100 Baso # (Auto) 0 D-Dimer Sodium 131 L Potassium 3.1 L Chloride 90 L Carbon Dioxide 29 BUN 31 H Creatinine 1.21 Estimated GFR > 60.0 BUN/Creatinine Ratio 25.6 H Glucose 120 H Lactate Calcium 9.2 Ferritin 963 H Total Bilirubin 0.5 AST 115 H ALT 144 H Alkaline Phosphatase 170 H Lactate Dehydrogenase 870 H Total Creatine Kinase 155 CK-MB (CK-2) 2.23 CK-MB (CK-2) Rel Index 1.4 L Troponin I < 0.012 C-Reactive Protein 37.7 H NT-Pro-B Natriuret Pep 599 H Total Protein 7.5 Albumin 3.5 Globulin 4.0 Albumin/Globulin Ratio 0.9 L Procalcitonin 3.97 H COVID-19 PCR 11/13/19 11/13/19 11/13/19 11:22 12:41 13:00 WBC RBC Hgb Hct MCV MCH MCHC RDW Plt Count Neut % (Auto) Lymph % (Auto) [place] % (Auto) Eos % (Auto) Baso % (Auto) Neut # (Auto) Lymph # (Auto) [place] # (Auto) Eos # (Auto) Baso # (Auto) D-Dimer 876 H Sodium Potassium Chloride Carbon Dioxide BUN Creatinine Estimated GFR BUN/Creatinine Ratio Glucose Lactate 1.5 Calcium Ferritin Total Bilirubin AST ALT Alkaline Phosphatase Lactate Dehydrogenase Total Creatine Kinase CK-MB (CK-2) CK-MB (CK-2) Rel Index Troponin I C-Reactive Protein NT-Pro-B Natriuret Pep Total Protein Albumin Globulin Albumin/Globulin Ratio Procalcitonin ID- PCR Negative 11/14/19 11/14/19 11/14/19 05:20 05:20 05:20 WBC 14.9 H RBC 3.83 L Hgb 11.8 L Hct 35.3 L MCV 92.2 MCH 30.9 MCHC 33.5 RDW 13.8 Plt Count 487 H Neut % (Auto) 89.4 H Lymph % (Auto) 4.7 L [place] % (Auto) 4.8 Eos % (Auto) 0.9 L Baso % (Auto) 0.2 Neut # (Auto) 54342 H Lymph # (Auto) 700 L [place] # (Auto) 700 Eos # (Auto) 100 Baso # (Auto) 0 D-Dimer Sodium 131 L Potassium 3.9 Chloride 93 L Carbon Dioxide 28 BUN 21 H Creatinine 0.92 Estimated GFR > 60.0 BUN/Creatinine Ratio 22.8 H Glucose 108 Lactate Calcium 8.9 Ferritin Total Bilirubin 0.5 AST 121 H ALT 141 H Alkaline Phosphatase 220 H Lactate Dehydrogenase Total Creatine Kinase CK-MB (CK-2) CK-MB (CK-2) Rel Index Troponin I C-Reactive Protein NT-Pro-B Natriuret Pep Total Protein 6.8 Albumin 3.3 L Globulin 3.5 Albumin/Globulin Ratio 0.9 L Procalcitonin 2.24 H COVID-19 PCR Assessment & Plan Assessment & Plan narrative: This is a 64-year-old male with hypertension presenting with over 1 week of fever and respiratory symptoms with left sided pneumonia on x-ray. 1. Bacterial pneumonia, left lung, present on admission, improving -still having fevers, improved cough and appetite -WBC 18 K---14.9, procalcitonin 3.97---2.24, negative COVID testing consistent with bacterial pneumonia -O2 sat 94-96 on room air but dropped to 90% with walking, now 92% room air -Rocephin 1 g IV daily, Zithromax 500 mg IV daily -Tylenol as needed fever, Zofran as needed nausea/vomiting -LR x1 L on day of admission -follow-up on blood cultures, negative to date -sputum culture greater than 25 epithelial cells -labs in AM -transition to oral antibiotic on discharge to complete 10 day course 2. Transaminitis, present on admission -AST 115---121, ALT 144---141, bili 0.5, alk-phos 170---220 -patient admits to 4-6 beers daily consumption and agrees to stop all alcohol or cut back substantially -abdominal ultrasound, rule out fatty liver disease versus other etiology -recheck on labs in a.m. 3. Acute hypokalemia, present on admission, resolved -secondary to previous vomiting -KCL 40 mEq p.o. x1 on day of admission 4. Essential hypertension, chronic -normotensive, continue losartan 25 mg b.i.d. per home routine, and also takes aspirin 81 mg q.d. DVT prophylaxis: Lovenox Surrogate decision maker: Spouse Code status: Full code Patient currently meets hospital observation criteria. Anticipate 1 more day on IV antibiotics and discharge home tomorrow, Friday pending completion of ultrasound. Quality VTE Deep Vein Thrombosis/Pulmonary Embolism Present on Admission: No
[2019-11-14] MEDS: CEFTRIAXONE 2 GM/50 ML FROZ.PIGGY IV (11:22)
[2019-11-14] MEDS: AZITHROMYCIN 500 MG in DEXTROSE 5% IN WATER 250 ML IV (12:14)
--- NOTE | 2019-11-14 16:09 | PC.NURSE ---
Evening note: Reji is resting in bed watching a movie, he is Ox3 and to situation. Few scattered crackles to L middle and lower lobes, afebrile, RA oxygen 94% Denies pain, denies other needs/concerns at this time. Instructed to call staff if he has any needs, call button at his side.
[2019-11-15] VITALS (7 sets, daily range): BP systolic 116–142; BP diastolic 69–83; PULSE 75–96; RESP 16–18; TEMP 36.5–37.8; O2SAT 93–95
[2019-11-15] MEDS: ACETAMINOPHEN 325 MG TABLET 650 MG PO (05:04)
[2019-11-15 05:36] LABS: Add Manual Diff / Slide Review NO; Basophils Absolute Auto 100 /uL (0-100); Basophils Percent Auto 0.8 % (0-2); Eosinophils Absolute Auto 300 /uL (0-450); Hematocrit 34.8 % (41-53); Hemoglobin 11.9 g/dL (13.5-17.5); Lymphocytes Absolute Auto 1100 /uL (1100-4500); Lymphocytes Percent Auto 8.7 % (25-40); Mean Corpuscular HGB Conc 34.2 % (30-36); Mean Corpuscular Hemoglobin 31.8 PG (26-34); Monocytes Absolute Auto 800 /uL (0-900); Monocytes Percent Auto 6.3 % (3-14); Neutrophils Absolute Auto 10400 /uL (1500-7000); Neutrophils Percent Auto 82.2 % (50-75); Platelet Count 558 X10^3/uL (150-400); Red Blood Cell Count 3.74 X10^6/uL (4.5-5.9); Red Cell Distribution Width 13.6 % (11.6-14.8); White Blood Cell Count 12.7 X10^3/uL (4.5-11.0)
[2019-11-15 05:42] LABS: Alanine Aminotransferase 121 IU/L (<50); Albumin 3.2 g/dL (3.5-5.0); Albumin Globulin Ratio 0.9 (1.0-2.8); Alkaline Phosphatase 201 U/L (38-126); Aspartate Aminotransferase 87 IU/L (17-59); BUN Creatinine Ratio 22.1 (6-22); Bilirubin Total 0.5 mg/dL (0.2-1.3); Blood Urea Nitrogen 17 mg/dL (9-20); Calcium 8.8 mg/dL (8.4-10.2); Carbon Dioxide 31 mmol/L (22-32); Chloride 96 mmol/L (98-107); Estimated Glomerular Filt Rate > 60.0 mL/min (>60); Globulin 3.7 g/dL (1.7-4.1); Glucose 109 mg/dL (80-110); HEMOLYSIS < 15 (0-50); Sodium 134 mmol/L (137-145); Total Protein 6.9 g/dL (6.3-8.2)
[2019-11-15 06:47] LABS: Procalcitonin 1.09 ng/mL (<0.5)
[2019-11-15 07:10] LABS: Hepatitis B Core Antibody Negative (Negative)
[2019-11-15 08:07] LABS: HBsAg Screen Negative (Negative); Hepatitis A Antibody IgM Negative (Negative); Hepatitis B Core Antibody IgM Negative (Negative); Hepatitis C Antibody 0.1 s/co ratio (0.0-0.9)
[2019-11-15] MEDS: LOSARTAN 25 MG TABLET PO (08:08)
[2019-11-15] MEDS: ENOXAPARIN 40 MG/0.4 ML SYRINGE SUBCUT (08:08)
[2019-11-15] MEDS: ASPIRIN EC 81 MG TABLET PO (08:08)
--- NOTE | 2019-11-15 09:16 | P.DS_ITS ---
History of Present Illness History of Present Illness Date Patient Seen: 11/15/19 Chief complaint: O2 LOW, HIGH PULSE, INTERMITTENT FEVER Narrative: Patient is a 64-year-old male with history of awake, hypertension sent to the emergency department from walk-in clinic due to persistent fevers and respiratory symptoms. He initially developed fever on November 03 and seen same day at walk-in clinic where he tested negative for COVID-19. Since then his fevers have persisted with temps up to 104 along with sweats and shaking chills. He states he always has a little bit of phlegm due to allergies but more recently with a persistent cough productive of yellow phlegm. He has also had headaches, myalgias, and a few episodes of vomiting and loose stools with loss of appetite. Today's evaluation in the ED included blood work with WBC 18.2 with left shift, procalcitonin 3.97, CRP 37, LDH 870, lactate of 1.5 which is normal. Chest x- ray one-view showed infiltrate throughout left lung most concentrated in the middle lung consistent with pneumonia. There is no effusion. Repeat COVID-19 testing is negative. Patient had O2 sat 89% at walking clinic but 94-96% at ER which dropped to 90% with walking. He was started on Rocephin and Zithromax and referred for admission for treatment of pneumonia. Patient is mother of liver disease and father of unknown cancer. Patient quit smoking decades ago. Discharge Providers Provider Date of admission: 11/13/19 13:21 Discharge Date: 11/15/19 Primary care physician: Danyell Fagan MD Discharge provider: Penny Mckeon MD Summary Hospital Course Discharge Diagnosis: 1. Acute hypoxic respiratory failure, present on admission, now resolved 2. Left lung pneumonia, probable bacterial, improving 3. Hypertension Hospital Course: Patient was admitted to the hospital for treatment of acute hypoxic respiratory failure due to left lung pneumonia. He was placed on IV antibiotics to include ceftriaxone and azithromycin. He defervesced nicely. His T-max was 104? prior to admission and over the past 24 hours has been 100 max. Patient reports he feels better. He is off oxygen. He is tolerating his diet without difficulty. He does describe some loose stool. He thinks it is related to not eating for the past 2 days. In addition the patient was found to have elevated liver function test. They are slowly improving hepatitis serologies thus far are negative. The patient had an abdominal ultrasound which showed a fatty liver. There were no distinct liver lesions. Patient has been deemed appropriate for discharge and arrangements will be made for him to discharge home. He will follow-up with his primary care provider next week regarding evaluation of his pneumonia and elevated liver function tests. Patient was counseled to limit alcohol to no more than 2 drinks per day. Status at Discharge Cognitive/behavioral status at discharge: oriented Functional status at discharge: independent ambulation Overall status at discharge: patient is back to baseline Time Spent with Patient Time spent: Less than 30 minutes Exam Vital Signs (past 8 hours): - 11/15/19 04:00 11/15/19 05:00 11/15/19 05:04 Temperature 100.0 F H 100 F H Pulse Rate 96 H Respiratory Rate 16 Blood Pressure 124/76 Pulse Oximetry 93 93 11/15/19 08:24 Temperature 97.7 F Pulse Rate 75 Respiratory Rate 18 Blood Pressure 142/83 H Pulse Oximetry 94 Oxygen Delivery Method Room Air Oxygen Flow Rate 0 Narrative Exam Narrative: Pleasant male in no acute distress Lungs: Clear to auscultation Cardiac exam: Regular rate and rhythm normal S1-S2 Abdomen: Soft nontender nondistended Extremities: No edema Objective Labs Result Diagrams: 11/15/19 05:05 11/15/19 05:05 Labs: Laboratory Results - last 24 hr 11/14/19 11/15/19 11/15/19 11:05 05:05 05:05 WBC 12.7 H RBC 3.74 L Hgb 11.9 L Hct 34.8 L MCV 93.0 MCH 31.8 MCHC 34.2 RDW 13.6 Plt Count 558 H Neut % (Auto) 82.2 H Lymph % (Auto) 8.7 L [place] % (Auto) 6.3 Eos % (Auto) 2.0 Baso % (Auto) 0.8 Neut # (Auto) 32479 H Lymph # (Auto) 1100 [place] # (Auto) 800 Eos # (Auto) 300 Baso # (Auto) 100 Sodium Potassium Chloride Carbon Dioxide BUN Creatinine Estimated GFR BUN/Creatinine Ratio Glucose Calcium Total Bilirubin AST ALT Alkaline Phosphatase Total Protein Albumin Globulin Albumin/Globulin Ratio Procalcitonin 1.09 H Hepatitis A IgM Ab Negative Hep Bs Antigen Negative Hep B Core Total Ab Negative Hep B Core IgM Ab Negative Hepatitis C Antibody 0.1 Hep C Ab Signal/Cutoff Comment 11/15/19 05:05 WBC RBC Hgb Hct MCV MCH MCHC RDW Plt Count Neut % (Auto) Lymph % (Auto) [place] % (Auto) Eos % (Auto) Baso % (Auto) Neut # (Auto) Lymph # (Auto) [place] # (Auto) Eos # (Auto) Baso # (Auto) Sodium 134 L Potassium 4.0 Chloride 96 L Carbon Dioxide 31 BUN 17 Creatinine 0.77 Estimated GFR > 60.0 BUN/Creatinine Ratio 22.1 H Glucose 109 Calcium 8.8 Total Bilirubin 0.5 AST 87 H ALT 121 H Alkaline Phosphatase 201 H Total Protein 6.9 Albumin 3.2 L Globulin 3.7 Albumin/Globulin Ratio 0.9 L Procalcitonin Hepatitis A IgM Ab Hep Bs Antigen Hep B Core Total Ab Hep B Core IgM Ab Hepatitis C Antibody Hep C Ab Signal/Cutoff Discharge Plan Discharge Plan Discharge Problem: Pneumonia Patient Disposition: Home Discharge orders & Medications Prescriptions: New levofloxacin 750 mg tablet 750 mg PO DAILY Qty: 7 RF: 0 Continued losartan 50 mg tablet 25 mg PO BID RF: 0 aspirin [Adult Low Dose Aspirin] 81 mg tablet,delayed release (DR/EC) 81 mg PO DAILY RF: 0 Follow up/Referrals: Danyell Fagan MD [Primary Care Provider] - Discharge Health Status Multidrug resistant organism: No MDRO Diet/Activity/Treatments Diet: Low-sodium Activity: as tolerated Oxygen: not indicated Discharge Data Primary Care Provider: Danyell Fagan Attending Provider: Te Manley Admit Date/Time: 11/13/19 13:21 Quality VTE Deep Vein Thrombosis/Pulmonary Embolism Present on Admission: No
[2019-11-15 09:18] LABS: Hepatitis B Surf Ab Qualitativ Non Reactive (.)
[2019-11-15] MEDS: CEFTRIAXONE 2 GM/50 ML FROZ.PIGGY IV (10:38)
[2019-11-15] MEDS: SODIUM CHLORIDE 0.9% FLUSH 10 ML IV (10:38)
--- NOTE | 2019-11-15 11:14 | PC.NURSE ---
Addendum entered by Divine Joyce R.N. 11/15/19 13:12: Pt left unit at 1312 via wheelchair in no distress with RN escort. Pt's present to drive pt home. Addendum entered by Divine Joyce R.N. 11/15/19 13:05: Discharge summary packet reviewed with pt and his at bedside. Questions answered, no further voiced concerns. Pt aware of follow up appointment made by this RN. Pt states has all belongings, and is ready for discharge. Original Note: Day Shift- Pt A&OX4, sitting up in chair at shift change and for breakfast, indep in room with steady gait. Pt states feels better and wants to go home today. Okay per Dr. Mckeon for scheduled 1200 antibiotics to be given early for discharge timing. No further voiced concerns, pt states has all belongings, pt's took his wallet home already.
[2019-11-15] MEDS: AZITHROMYCIN 500 MG in DEXTROSE 5% IN WATER 250 ML IV (11:28)
== END 2019-11-15 13:12 | disposition home or self-care (01) ==
LOC: ED 13:13 → AC 11-14 10:32
PROVIDERS: Admitting Provider Internal Medicine; Emergency Provider Emergency Medicine; PCP Family Medicine; Referring Provider Emergency Medicine; Visit Provider Internal Medicine
DX: J18.9 Pneumonia, unspecified organism (principal); J96.01 Acute respiratory failure with hypoxia; R50.9 Fever, unspecified; Z87.891 Personal history of nicotine dependence; I10 Essential (primary) hypertension; E87.6 Hypokalemia; Z11.59 Encounter for screening for other viral diseases
CPT/HCPCS: 36415; 71045; 76705; 80053; 80074; 82550; 82553; 82728; 83605; 83615; 83880; 84145; 84484; 85025; 85379; 86140; 86704; 86706; 87040; 87070; 87205; 87635; 96365; 96366; 96367; 96372; 96375; 99285; G0378; J0696; J1650; J1940

== ENCOUNTER → 2024-11-05 10:54 | Outpatient (CLI) | payer MEDICARE, SELFPAY ==
[2024-09-21 08:18] VITALS: BMI 27.1
[2024-11-05 11:47] LABS: Add Manual Diff / Slide Review NO; Hematocrit 37.9 % (41-53); Hemoglobin 13.2 g/dL (13.5-17.5); Lymphocytes Absolute Auto 1000 /uL (1100-4500); Mean Corpuscular HGB Conc 34.8 % (30-36); Mean Corpuscular Hemoglobin 35.7 PG (26-34); Mean Corpuscular Volume 102.7 fL (80-100); Platelet Count 326 X10^3/uL (150-400)
[2024-11-05 11:49] LABS: Cholesterol 219 mg/dL (140-199); Triglycerides 79 mg/dL (35-150)
[2024-11-05 11:52] LABS: Protein (Total) Urine Random 5 mg/dL (0-12); Protein Creatinine Ratio Urine 0.01 GRAM/24H
[2024-11-05 12:00] LABS: HDL Cholesterol 115 mg/dL (40-60)
[2024-11-05 12:20] LABS: TSH w/ Reflex to FT4 1.17 uIU/mL (0.47-4.68)
[2024-11-05 12:24] LABS: Ferritin 142 ng/mL (18-464)
[2024-11-05 12:39] LABS: Vitamin B12 Reflex MMA if <400 304 pg/mL (239-931)
[2024-11-06 04:08] LABS: CRP, High Sensitivity 0.79 mg/L (0.00-3.00)
== END ==
LOC: LAB 10:56
PROVIDERS: PCP Family Medicine; Referring Provider Family Medicine; Visit Provider Family Medicine
DX: Z00.00 Encounter for general adult medical examination without abnormal findings (principal); D64.9 Anemia, unspecified; F10.20 Alcohol dependence, uncomplicated; I10 Essential (primary) hypertension; Z68.27 Body mass index [BMI] 27.0-27.9, adult; R53.83 Other fatigue; Z12.5 Encounter for screening for malignant neoplasm of prostate
CPT/HCPCS: 36415; 80061; 82570; 82607; 82728; 83921; 84156; 84443; 85025; 86140; G0103

== ENCOUNTER → 2024-11-09 09:17 | Outpatient (CLI) | payer MEDICARE, SELFPAY ==
[2024-09-21 08:18] VITALS: BMI 27.1
[2024-11-09 10:21] LABS: Alanine Aminotransferase 31 IU/L (<50); Albumin 4.5 g/dL (3.5-5.0); Albumin Globulin Ratio 1.5 (1.0-2.8); Alkaline Phosphatase 93 U/L (38-126); Blood Urea Nitrogen 10 mg/dL (9-20); Calcium 9.7 mg/dL (8.4-10.2); Carbon Dioxide 24 mmol/L (22-32); Chloride 97 mmol/L (98-107); Estimated Glomerular Filt Rate > 60 mL/min (>60); Globulin 3.1 g/dL (1.7-4.1); Glucose 116 mg/dL (70-99); HEMOLYSIS < 15 (0-50); Potassium 4.5 mmol/L (3.4-5.1); Sodium 130 mmol/L (137-145); Total Protein 7.6 g/dL (6.3-8.2)
== END ==
PROVIDERS: PCP Family Medicine; Referring Provider Family Medicine; Visit Provider Family Medicine
DX: I10 Essential (primary) hypertension (principal)
CPT/HCPCS: 36415; 80053

== ENCOUNTER 2025-01-03 15:16 | Emergency (ER) | payer MEDICARE, SELFPAY ==
[2024-09-21 08:18] VITALS: BMI 27.1
[2025-01-03] VITALS (34 sets, daily range): BP systolic 88–171; BP diastolic 55–105; PULSE 76–102; RESP 11–24; O2SAT 91–100; BMI 25.2
--- NOTE | 2025-01-03 15:21 | ED_ITS ---
HPI - General Adult General Chief complaint: Allergic Reaction Stated complaint: allergic reaction Time Seen by Provider: 01/03/25 15:18 History of Present Illness HPI narrative: 69-year-old gentleman walked into triage approximately 5 minutes after a B flu into his mouth and stung him on his tongue. He was having increasing oropharyngeal swelling, increasing wheezing, profuse diaphoresis pale and felt like he was going to pass out. Urgently taken trimester room 10 and procedures for treating acute anaphylaxis were initiated. Related Data Home Medications ?Medication ?Instructions ?Recorded ?Confirmed aspirin 81 mg tablet,delayed 81 mg PO DAILY 06/11/18 0 11/09/24 release (Adult Low Dose Aspirin) Previous Rx's ?Medication ?Instructions ?Recorded losartan 100 mg tablet 100 mg PO DAILY #90 tabs epinephrine 0.3 mg/0.3 mL 0.3 mg (0.3 mL) IM Q5-15M KS N 01/03/25 injection, auto-injector anaphylaxis #2 ea methylprednisolone 4 mg tablets in See Rx Instructions PO .COMPLEX 01/03/25 a dose pack (Medrol (Yunior)) #21 ea Allergies Allergy/AdvReac Type Severity Reaction Status Date / Time bee stings Allergy Mild Uncoded 01/03/25 15:31 Review of Systems Review of Systems Narrative: Pertinent positive and negative findings as per HPI Patient History Medical History (Updated 01/03/25 @ 19:51 by Viktoriya Ovalle MD) Pneumonia Bilateral primary osteoarthritis of knee Cellulitis Surgical History (Updated 11/13/19 @ 15:13 by Te Manley MD) Status post left knee replacement Social History household members: spouse Tobacco: How many years used: 10 alcohol intake: current substance use type: marijuana alcohol intake frequency: 0-2 drinks per day Exam Initial Vital Signs Initial Vital Signs: Vital Signs Pulse Rate 86 01/03/25 15:19 Respiratory Rate 20 01/03/25 15:19 Blood Pressure 88/55 L 01/03/25 15:19 Pulse Oximetry 91 01/03/25 15:19 Oxygen Delivery Method Room Air 01/03/25 15:19 Oxygen Flow Rate 2 01/03/25 15:19 General: Pale, holley, profusely diaphoretic, respiratory distress, tongue is swollen and speech is difficult to understand HEENT: Swollen tongue, concern for airway compromise Respiratory: Lungs with mild wheeze in all lung painter, increasing respiratory rate, no retractions Cardiac: Tachycardic but otherwise Regular rate and rhythm no murmurs no bruits Abdomen: Soft, nontender, no rebound or guarding, no flank pain Skin: Pale, profusely diaphoretic Neurologic: Grossly neurologically intact with no obvious asymmetries or abnormalities Extremities: No trauma, well perfused, no lower extremity edema Psych: Cooperative, appropriate insight and affect Course Orders Ordered: Sodium Chloride (Normal Saline 0.9%) 1,000 mls @ 150 mls/hr IV CONT ELIZABETH Last Infusion: 01/03/25 17:14 Dose: Infused Documented By: Admin: 01/03/25 15:45 Dose: 150 mls/hr Documented By: CARLOS Discontinued Medications Diphenhydramine HCl (Diphenhydramine 50 Mg/Ml Vial) 50 mg IV NOW ONE Stop: 01/03/25 15:21 Last Admin: 01/03/25 15:30 Dose: 50 mg Documented By: CARLOS Epinephrine (Racepinephrine 0.5 Ml Neb) 0.5 ml INH NOW ONE Stop: 01/03/25 15:29 Last Admin: 01/03/25 15:30 Dose: 0.5 ml Documented By: EMILY Epinephrine HCl (Epinephrine 1 Mg/Ml) 0.3 mg IM NOW ONE Stop: 01/03/25 15:20 Last Admin: 01/03/25 15:30 Dose: 0.3 mg Documented By: CARLOS Famotidine (Famotidine 20 Mg/2 Ml Vial) 20 mg IV NOW ONE Stop: 01/03/25 15:21 Last Admin: 01/03/25 15:30 Dose: 20 mg Documented By: CARLOS Methylprednisolone (Methylprednisolone Succ 125 Mg/2 Ml Vial) 125 mg IV NOW ONE Stop: 01/03/25 15:21 Last Admin: 01/03/25 15:30 Dose: 125 mg Documented By: CARLOS Vital Signs Vital signs: Vital Signs - 8 hr 01/03/25 15:19 01/03/25 15:19 01/03/25 15:27 Pulse Rate 86 102 H Respiratory Rate 20 Blood Pressure 88/55 L 88/55 L Pulse Oximetry 91 93 Oxygen Delivery Method Room Air Nasal Cannula Oxygen Flow Rate 2 01/03/25 15:27 01/03/25 15:29 01/03/25 15:29 Pulse Rate 88 90 Respiratory Rate 22 20 Blood Pressure 102/70 Pulse Oximetry 95 98 Oxygen Delivery Method Nasal Cannula Nasal Cannula Oxygen Flow Rate 2 2 01/03/25 15:30 01/03/25 15:30 01/03/25 15:31 Pulse Rate 82 89 Respiratory Rate 14 24 Blood Pressure 114/67 Pulse Oximetry 98 98 Oxygen Delivery Method Nasal Cannula Nasal Cannula Oxygen Flow Rate 2 2 01/03/25 15:31 01/03/25 15:46 01/03/25 15:46 Pulse Rate 87 81 Respiratory Rate 20 17 Blood Pressure 125/71 Pulse Oximetry 98 98 Oxygen Delivery Method Nasal Cannula Nasal Cannula Oxygen Flow Rate 2 2 01/03/25 15:50 01/03/25 15:50 01/03/25 15:55 Pulse Rate 77 80 Respiratory Rate 15 24 Blood Pressure 130/74 Pulse Oximetry 98 98 Oxygen Delivery Method Nasal Cannula Nasal Cannula Oxygen Flow Rate 2 2 01/03/25 15:55 01/03/25 16:00 01/03/25 16:00 Pulse Rate 79 Respiratory Rate 13 Blood Pressure 132/74 132/73 Pulse Oximetry 98 Oxygen Delivery Method Nasal Cannula Oxygen Flow Rate 3 01/03/25 16:05 01/03/25 16:05 01/03/25 16:10 Pulse Rate 80 Respiratory Rate 17 Blood Pressure 131/65 126/69 Pulse Oximetry 98 Oxygen Delivery Method Nasal Cannula Oxygen Flow Rate 3 01/03/25 16:10 01/03/25 16:15 01/03/25 16:15 Pulse Rate 80 83 Respiratory Rate 15 18 Blood Pressure 128/73 Pulse Oximetry 99 98 Oxygen Delivery Method Nasal Cannula Nasal Cannula Oxygen Flow Rate 3 2 01/03/25 16:20 01/03/25 16:20 01/03/25 16:25 Pulse Rate 84 85 Respiratory Rate 17 13 Blood Pressure 130/68 Pulse Oximetry 99 98 Oxygen Delivery Method Nasal Cannula Nasal Cannula Oxygen Flow Rate 2 2 01/03/25 16:25 01/03/25 16:30 01/03/25 16:30 Pulse Rate 84 Respiratory Rate 16 Blood Pressure 122/66 136/75 Pulse Oximetry 99 Oxygen Delivery Method Nasal Cannula Oxygen Flow Rate 2 01/03/25 16:35 01/03/25 16:35 01/03/25 16:40 Pulse Rate 89 82 Respiratory Rate 15 15 Blood Pressure 130/65 Pulse Oximetry 99 99 Oxygen Delivery Method Nasal Cannula Nasal Cannula Oxygen Flow Rate 2 2 01/03/25 16:40 01/03/25 16:45 01/03/25 16:45 Pulse Rate 85 Respiratory Rate 14 Blood Pressure 136/70 129/73 Pulse Oximetry 99 Oxygen Delivery Method Nasal Cannula Oxygen Flow Rate 2 01/03/25 16:50 01/03/25 16:50 01/03/25 16:55 Pulse Rate 81 82 Respiratory Rate 13 11 L Blood Pressure 131/72 Pulse Oximetry 99 99 Oxygen Delivery Method Nasal Cannula Nasal Cannula Oxygen Flow Rate 2 2 01/03/25 16:55 01/03/25 17:00 01/03/25 17:00 Pulse Rate 82 Respiratory Rate 16 Blood Pressure 120/68 131/75 Pulse Oximetry 99 Oxygen Delivery Method Nasal Cannula Oxygen Flow Rate 2 01/03/25 17:05 01/03/25 17:05 01/03/25 17:10 Pulse Rate 82 Respiratory Rate 15 Blood Pressure 139/76 138/86 Pulse Oximetry 100 Oxygen Delivery Method Nasal Cannula Oxygen Flow Rate 2 01/03/25 17:10 01/03/25 17:15 01/03/25 17:15 Pulse Rate 81 80 Respiratory Rate 16 15 Blood Pressure 137/90 Pulse Oximetry 99 100 Oxygen Delivery Method Nasal Cannula Nasal Cannula Oxygen Flow Rate 2 2 01/03/25 17:30 01/03/25 17:30 01/03/25 17:45 Pulse Rate 82 Respiratory Rate 13 Blood Pressure 148/90 H 155/89 H Pulse Oximetry 99 Oxygen Delivery Method Nasal Cannula Oxygen Flow Rate 2 01/03/25 17:45 01/03/25 18:00 01/03/25 18:00 Pulse Rate 82 82 Respiratory Rate 13 12 Blood Pressure 148/90 H Pulse Oximetry 98 99 Oxygen Delivery Method Nasal Cannula Nasal Cannula Oxygen Flow Rate 2 2 01/03/25 18:15 01/03/25 18:15 01/03/25 18:30 Pulse Rate 86 Respiratory Rate 15 Blood Pressure 143/85 H 148/94 H Pulse Oximetry 99 Oxygen Delivery Method Nasal Cannula Oxygen Flow Rate 2 01/03/25 18:30 01/03/25 18:45 01/03/25 18:45 Pulse Rate 80 76 Respiratory Rate 13 Blood Pressure 153/88 H Pulse Oximetry 97 98 Oxygen Delivery Method Nasal Cannula Nasal Cannula Oxygen Flow Rate 2 2 Medical Decision Making MDM Narrative Medical decision making narrative: 69-year-old gentleman with a history of hypertension and no other significant issues was painting his house went to be blue into his mouth and he sustained a bee sting to his tongue. He has not had prior episodes with the anaphylaxis to bee stings. He presents via triage to the emergency department within 10 minutes of the episode with profound diaphoresis, increasing tongue and posterior pharyngeal swelling, diffuse wheeze and significant hypotension. He has immediately given 0.3 mg of IM epi, IV was started he responded nicely to Solu-Medrol, fluids, Benadryl and Pepcid. He was observed in the emergency department for 4 hours with continued improvement. No signs of recurrent anaphylaxis and he will be discharged home. I have given him a prescription for 2 EpiPens, a Medrol Dosepak and instructions to use Benadryl should he have difficulty sleeping or any itching. Also recommended Zyrtec daily for the next week. Encouraged him to return if he had symptoms worsening. We discussed return to the emergency department if he needs to use the EpiPen in the future as well as calling [address] trying to drive himself to the ER. There was no indication for hospitalization and he will be discharged Critical Care Time Critical Care Time Critical Care Time: Yes Total Critical Care Time: 33 Attestation: Critical care time is separate from other billable procedures. There is a high probability of a significant, sudden or life-threatening deterioration that requires my full and direct attention, intervention and personal management. This critical care time includes consultation with family and other consulting doctors, review of records, and interpretation of data from labs, EKGs and imaging as well as managements of acute anaphylaxis with impending airway compromise and significant hypotension/impending circulatory shock Discharge Plan Departure Patient Disposition: Home Clinical Impression: Anaphylaxis Qualifiers: Encounter type: initial encounter Qualified Code(s): T78.2XXA - Anaphylactic shock, unspecified, initial encounter Instructions: DI for Anaphylaxis Activity Restrictions/Additional Instructions: Thank you for coming in today You had a true anaphylactic reaction to the bee sting today In the emergency department you were given a shot of epinephrine, and IV Solu- Medrol, Benadryl and Pepcid all to treat the acute allergy. You are observed for 4 hours and are improving nicely. You do need to take nonsedating allergy pills such as Zyrtec, Claritin or Harriett (all of these are [id number]) once daily for the next 7 days to prevent recurrent symptoms. With the severity of your symptoms I am also recommending a small steroid taper, a Medrol Dosepak If you find that you are having recurrent itching or any difficulty sleeping, you can use Benadryl. Please make sure you do have some available at home I have also given you a prescription for 2 EpiPens. If you have another bee sting or similar episode you need to use the EpiPen immediately. Please make sure that friends and family who might be around you also know where the pins are and how to use them. If they are used you do need to come to the emergency department All prescriptions were sent to [facility] in [place] With symptoms that are worsening I would strongly recommend you call [address] to drive yourself to the ER. If you find that you are getting worse or develop any new symptoms, please feel free to return to the emergency department for further evaluation. Prescriptions: New methylprednisolone [Medrol (Yunior)] 4 mg tablets,dose pack See Rx Instructions .ROUTE .COMPLEX Qty: 21 0RF Rx Instructions: orally per package directions epinephrine 0.3 mg/0.3 mL auto-injector 0.3 mg IM Q5-15M PRN (Reason: anaphylaxis) Qty: 2 0RF Rx Instructions: do not exceed 3 doses per episode No Action aspirin [Adult Low Dose Aspirin] 81 mg tablet,delayed release (DR/EC) 81 mg PO DAILY losartan 100 mg tablet 100 mg PO DAILY Qty: 90 3RF Referrals: Conchita Waterman DO [Primary Care Provider, Medical] Stand Alone Forms: Patient Portal/API
[2025-01-03] MEDS: RACEPINEPHRINE 0.5 ML NEB INH (15:30)
[2025-01-03] MEDS: EPINEPHrine 1 MG/ML 0.3 MG IM (15:30)
[2025-01-03] MEDS: diphenhydrAMINE 50 MG/ML VIAL IV (15:30)
[2025-01-03] MEDS: methylPREDNISolone succ 125 MG/2 ML VIAL IV (15:30)
[2025-01-03] MEDS: FAMOTIDINE 20 MG/2 ML VIAL IV (15:30)
[2025-01-03] MEDS: SODIUM CHLORIDE 0.9% 1,000 ML 150 ML IV (15:45)
== END 2025-01-03 20:42 | disposition home or self-care (01) ==
PROVIDERS: Emergency Provider Emergency Medicine; PCP Family Medicine
DX: T78.2XXA Anaphylactic shock, unspecified, initial encounter (principal); T63.441A Toxic effect of venom of bees, accidental (unintentional), initial encounter
CPT/HCPCS: 94640; 96361; 96372; 96374; 96375; 99284; 99291; J0165; J1200; J2919